=== PATIENT | male | born 1945 | race American Indian/Alaskan Native ===

== ENCOUNTER 2021-05-13 09:57 | Inpatient (IN) | payer MEDICARE ==
[2021-05-13] MEDS ORDERED: SODIUM CHLORIDE 0.9% 1000 ML 1,000 ML IV ONE ×2 (11:09→16:01)
[2021-05-13] MEDS ORDERED: ALBUTEROL 2.5 MG/3 ML NEBU IH ONE (11:10)
[2021-05-13] MEDS ORDERED: methylPREDNISolone Sod Succinate 125 MG/2 ML INJ IM ONE (11:10)
[2021-05-13] MEDS ORDERED: IPRATROPIUM 0.02% NEBU 2.5 ML IH ONE (11:10)
--- NOTE | 2021-05-13 11:14 | Emergency Department Report ---
HPI - General Chief Complaint: Back Pain/Injury Time Seen by Provider: 05/13/21 11:07 - HPI HPI: 76-year-old male with history of DM 2, COPD, right eye blindness, and colon cancer status post resection 1 year ago as well as chronic low back pain presents via EMS due to 3 days of generalized weakness and cough as well as an episode of hemoptysis this morning. Patient states that for the past 3 days he has felt ill with generalized weakness, body aches, shortness of breath, and subjective fever. He has been using his inhalers without significant relief. This morning he had an episode of coughing up blood and clots. This only happened one time. He is unable to quantify the amount. His last bowel movement was this morning he denies melena/hematochezia. He denies hematemisis. He does report he has low back pain but says that this has been ongoing and chronic for the past year and there are no new changes to this. Patient is not vaccinated against the coronavirus. ED Past Medical Hx - Past Medical History Previous Medical History?: Yes Hx Diabetes: Yes Hx COPD: Yes Additional medical history: Right eye blindness, Colon cancer s/p resection - Social History Smoking Status: Former Smoker Substance Use Type: None ED Review of Systems ROS: Stated complaint: WEAKNESS/RT FLANK PAIN Other details as noted in HPI Constitutional: fever, weakness, other (No night sweats). denies: chills Eyes: denies: eye pain, vision change ENT: denies: throat pain, congestion Respiratory: cough, shortness of breath, other (hemoptysis) Cardiovascular: denies: chest pain, palpitations, edema, syncope Gastrointestinal: denies: abdominal pain, nausea, vomiting, diarrhea, constipation, melena Genitourinary: denies: dysuria, frequency, hematuria Musculoskeletal: back pain (chronic). denies: joint swelling Skin: denies: rash, lesions Neurological: denies: headache, weakness, numbness, paresthesias, confusion Hematological/Lymphatic: denies: easy bleeding, easy bruising Physical Exam - Physical Exam Vital Signs: Vital Signs 05/13/21 10:26 Temperature 99.9 F H Pulse Rate 114 H Respiratory 18 Rate Blood Pressure 94/65 [Right] O2 Sat by Pulse 97 Oximetry Physical Exam: GENERAL: Well developed and well nourished. In moderate respiratory distress. Globally weak. HEAD: Normocephalic. No obvious signs of trauma. ENT: Very dry mucous membranes. EYES: Extraocular movements are grossly intact. NECK: Supple. Full ROM is intact. Trachea is midline. LUNGS: In moderate respiratory distress. Equal chest rise bilaterally. Globally decreased air movement throughout without discrete rales, wheezes, or rhonchi. CARDIOVASCULAR: Tachycardic but with regular rhythm. No murmurs or rubs. VASCULAR: Cap refill < 2 seconds ABDOMEN: Abdomen is distended but soft and nontender. Well-healed abdominal scars are noted. There is no guarding or rebound tenderness. SKIN: Skin is warm and dry NEURO: Patient is awake, alert, and oriented. 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 No focal deficits. Normal motor and sensory exam throughout. Normal speech. MUSCULOSKELETAL: No obvious deformities. No significant tenderness. Normal ROM throughout. BACK/SPINE: No midline tenderness or step-offs of the C/T/L spine. No costovertebral angle tenderness. ED Course Vital Signs 05/13/21 10:26 Temperature 99.9 F H Pulse Rate 114 H Respiratory 18 Rate Blood Pressure 94/65 [Right] O2 Sat by Pulse 97 Oximetry ED Medical Decision Making - Lab Data Result diagrams: 05/13/21 11:24 05/13/21 11:24 Lab Results 05/13/21 05/13/21 05/13/21 Range/Units 11:24 11:24 11:24 WBC 4.1 L (4.5-11.0) K/mm3 RBC 5.30 H (3.65-5.03) M/mm3 Hgb 15.4 H (11.8-15.2) gm/dl Hct 46.6 H (35.5-45.6) % MCV 88 (84-94) fl MCH 29 (28-32) pg MCHC 33 (32-34) % RDW 13.2 (13.2-15.2) % Plt Count 145 (140-440) K/mm3 Lymph % (Auto) 8.1 L (13.4-35.0) % [place] % (Auto) 10.4 H (0.0-7.3) % Eos % (Auto) 0.1 (0.0-4.3) % Baso % (Auto) 0.4 (0.0-1.8) % Lymph # (Auto) 0.3 L (1.2-5.4) K/mm3 [place] # (Auto) 0.4 (0.0-0.8) K/mm3 Eos # (Auto) 0.0 (0.0-0.4) K/mm3 Baso # (Auto) 0.0 (0.0-0.1) K/mm3 Seg Neutrophils % 81.0 H (40.0-70.0) % Seg Neutrophils # 3.3 (1.8-7.7) K/mm3 D-Dimer (0-234) ng/mlDDU Sodium 139 (137-145) mmol/L Potassium 3.8 (3.6-5.0) mmol/L Chloride 99.9 (98-107) mmol/L Carbon Dioxide 26 (22-30) mmol/L Anion Gap 17 mmol/L BUN 17 (9-20) mg/dL Creatinine 0.9 (0.8-1.3) mg/dL Estimated GFR > 60 ml/min BUN/Creatinine Ratio 19 % Glucose 121 H (75-100) mg/dL Lactic Acid 1.20 (0.7-2.0) mmol/L Calcium 8.7 (8.4-10.2) mg/dL Ferritin (30.0-300.0) ng/mL Total Bilirubin 0.40 (0.1-1.2) mg/dL AST 54 H (5-40) units/L ALT 51 (7-56) units/L Alkaline Phosphatase 66 (35-129) units/L Lactate Dehydrogenase (91-180) units/L Troponin T < 0.010 (0.00-0.029) ng/mL C-Reactive Protein (0.00-1.30) mg/dL Total Protein 7.9 (6.3-8.2) g/dL Albumin 4.2 (3.9-5) g/dL Albumin/Globulin Ratio 1.1 % Procalcitonin (<0.15) ng/mL Urine Color (Yellow) Urine Turbidity (Clear) Urine pH (5.0-7.0) Ur Specific [place] (1.003-1.030) Urine Protein (Negative) mg/dL Urine Glucose (UA) (Negative) mg/dL Urine Ketones (Negative) mg/dL Urine Blood (Negative) Urine Nitrite (Negative) Urine Bilirubin (Negative) Urine Urobilinogen (<2.0) mg/dL Ur Leukocyte Esterase (Negative) Urine WBC (Auto) (0.0-6.0) /HPF Urine RBC (Auto) (0.0-6.0) /HPF Urine Bacteria (Auto) (Negative) /HPF 05/13/21 05/13/21 05/13/21 Range/Units 11:24 11:24 11:24 WBC (4.5-11.0) K/mm3 RBC (3.65-5.03) M/mm3 Hgb (11.8-15.2) gm/dl Hct (35.5-45.6) % MCV (84-94) fl MCH (28-32) pg MCHC (32-34) % RDW (13.2-15.2) % Plt Count (140-440) K/mm3 Lymph % (Auto) (13.4-35.0) % [place] % (Auto) (0.0-7.3) % Eos % (Auto) (0.0-4.3) % Baso % (Auto) (0.0-1.8) % Lymph # (Auto) (1.2-5.4) K/mm3 [place] # (Auto) (0.0-0.8) K/mm3 Eos # (Auto) (0.0-0.4) K/mm3 Baso # (Auto) (0.0-0.1) K/mm3 Seg Neutrophils % (40.0-70.0) % Seg Neutrophils # (1.8-7.7) K/mm3 D-Dimer 314.43 H (0-234) ng/mlDDU Sodium (137-145) mmol/L Potassium (3.6-5.0) mmol/L Chloride (98-107) mmol/L Carbon Dioxide (22-30) mmol/L Anion Gap mmol/L BUN (9-20) mg/dL Creatinine (0.8-1.3) mg/dL Estimated GFR ml/min BUN/Creatinine Ratio % Glucose 125 H (75-100) mg/dL Lactic Acid (0.7-2.0) mmol/L Calcium (8.4-10.2) mg/dL Ferritin 262.6 (30.0-300.0) ng/mL Total Bilirubin (0.1-1.2) mg/dL AST (5-40) units/L ALT (7-56) units/L Alkaline Phosphatase (35-129) units/L Lactate Dehydrogenase 248 H (91-180) units/L Troponin T (0.00-0.029) ng/mL C-Reactive Protein 7.40 H (0.00-1.30) mg/dL Total Protein (6.3-8.2) g/dL Albumin (3.9-5) g/dL Albumin/Globulin Ratio % Procalcitonin (<0.15) ng/mL Urine Color (Yellow) Urine Turbidity (Clear) Urine pH (5.0-7.0) Ur Specific [place] (1.003-1.030) Urine Protein (Negative) mg/dL Urine Glucose (UA) (Negative) mg/dL Urine Ketones (Negative) mg/dL Urine Blood (Negative) Urine Nitrite (Negative) Urine Bilirubin (Negative) Urine Urobilinogen (<2.0) mg/dL Ur Leukocyte Esterase (Negative) Urine WBC (Auto) (0.0-6.0) /HPF Urine RBC (Auto) (0.0-6.0) /HPF Urine Bacteria (Auto) (Negative) /HPF 05/13/21 05/13/21 05/13/21 Range/Units 11:24 14:38 14:38 WBC (4.5-11.0) K/mm3 RBC (3.65-5.03) M/mm3 Hgb (11.8-15.2) gm/dl Hct (35.5-45.6) % MCV (84-94) fl MCH (28-32) pg MCHC (32-34) % RDW (13.2-15.2) % Plt Count (140-440) K/mm3 Lymph % (Auto) (13.4-35.0) % [place] % (Auto) (0.0-7.3) % Eos % (Auto) (0.0-4.3) % Baso % (Auto) (0.0-1.8) % Lymph # (Auto) (1.2-5.4) K/mm3 [place] # (Auto) (0.0-0.8) K/mm3 Eos # (Auto) (0.0-0.4) K/mm3 Baso # (Auto) (0.0-0.1) K/mm3 Seg Neutrophils % (40.0-70.0) % Seg Neutrophils # (1.8-7.7) K/mm3 D-Dimer (0-234) ng/mlDDU Sodium (137-145) mmol/L Potassium (3.6-5.0) mmol/L Chloride (98-107) mmol/L Carbon Dioxide (22-30) mmol/L Anion Gap mmol/L BUN (9-20) mg/dL Creatinine (0.8-1.3) mg/dL Estimated GFR ml/min BUN/Creatinine Ratio % Glucose (75-100) mg/dL Lactic Acid 3.10 H* (0.7-2.0) mmol/L Calcium (8.4-10.2) mg/dL Ferritin (30.0-300.0) ng/mL Total Bilirubin (0.1-1.2) mg/dL AST (5-40) units/L ALT (7-56) units/L Alkaline Phosphatase (35-129) units/L Lactate Dehydrogenase (91-180) units/L Troponin T < 0.010 (0.00-0.029) ng/mL C-Reactive Protein (0.00-1.30) mg/dL Total Protein (6.3-8.2) g/dL Albumin (3.9-5) g/dL Albumin/Globulin Ratio % Procalcitonin < 0.05 (<0.15) ng/mL Urine Color (Yellow) Urine Turbidity (Clear) Urine pH (5.0-7.0) Ur Specific [place] (1.003-1.030) Urine Protein (Negative) mg/dL Urine Glucose (UA) (Negative) mg/dL Urine Ketones (Negative) mg/dL Urine Blood (Negative) Urine Nitrite (Negative) Urine Bilirubin (Negative) Urine Urobilinogen (<2.0) mg/dL Ur Leukocyte Esterase (Negative) Urine WBC (Auto) (0.0-6.0) /HPF Urine RBC (Auto) (0.0-6.0) /HPF Urine Bacteria (Auto) (Negative) /HPF 05/13/21 05/13/21 Range/Units 15:45 Unknown WBC (4.5-11.0) K/mm3 RBC (3.65-5.03) M/mm3 Hgb (11.8-15.2) gm/dl Hct (35.5-45.6) % MCV (84-94) fl MCH (28-32) pg MCHC (32-34) % RDW (13.2-15.2) % Plt Count (140-440) K/mm3 Lymph % (Auto) (13.4-35.0) % [place] % (Auto) (0.0-7.3) % Eos % (Auto) (0.0-4.3) % Baso % (Auto) (0.0-1.8) % Lymph # (Auto) (1.2-5.4) K/mm3 [place] # (Auto) (0.0-0.8) K/mm3 Eos # (Auto) (0.0-0.4) K/mm3 Baso # (Auto) (0.0-0.1) K/mm3 Seg Neutrophils % (40.0-70.0) % Seg Neutrophils # (1.8-7.7) K/mm3 D-Dimer (0-234) ng/mlDDU Sodium (137-145) mmol/L Potassium (3.6-5.0) mmol/L Chloride (98-107) mmol/L Carbon Dioxide (22-30) mmol/L Anion Gap mmol/L BUN (9-20) mg/dL Creatinine (0.8-1.3) mg/dL Estimated GFR ml/min BUN/Creatinine Ratio % Glucose (75-100) mg/dL Lactic Acid 2.40 H* (0.7-2.0) mmol/L Calcium (8.4-10.2) mg/dL Ferritin (30.0-300.0) ng/mL Total Bilirubin (0.1-1.2) mg/dL AST (5-40) units/L ALT (7-56) units/L Alkaline Phosphatase (35-129) units/L Lactate Dehydrogenase (91-180) units/L Troponin T (0.00-0.029) ng/mL C-Reactive Protein (0.00-1.30) mg/dL Total Protein (6.3-8.2) g/dL Albumin (3.9-5) g/dL Albumin/Globulin Ratio % Procalcitonin (<0.15) ng/mL Urine Color Yellow (Yellow) Urine Turbidity Clear (Clear) Urine pH 9.0 H (5.0-7.0) Ur Specific [place] 1.012 (1.003-1.030) Urine Protein <15 mg/dl (Negative) mg/dL Urine Glucose (UA) Neg (Negative) mg/dL Urine Ketones Neg (Negative) mg/dL Urine Blood Neg (Negative) Urine Nitrite Neg (Negative) Urine Bilirubin Neg (Negative) Urine Urobilinogen < 2.0 (<2.0) mg/dL Ur Leukocyte Esterase Neg (Negative) Urine WBC (Auto) 1.0 (0.0-6.0) /HPF Urine RBC (Auto) < 1.0 (0.0-6.0) /HPF Urine Bacteria (Auto) 1+ (Negative) /HPF - EKG Data -: EKG Interpreted by Ms - EKG Data 05/13/21 11:47 Sinus tachycardia. Left axis deviation. Left anterior fascicular block. First-degree AV block. Nonspecific intraventricular conduction delay. Otherwise normal intervals. No significant ST segment or T wave abnormalities. - Radiology Data CHEST 1 VIEW INDICATION / CLINICAL INFORMATION: hemoptysis, tachycardia. COMPARISON: None available. FINDINGS: SUPPORT DEVICES: None. HEART / MEDIASTINUM: No significant abnormality. LUNGS / PLEURA: No significant pulmonary or pleural abnormality. No pneumothorax. ADDITIONAL FINDINGS: No significant additional findings. IMPRESSION: 1. No acute findings. Signer Name: Lyudmila Gaffney MD Signed: 05/13/2021 10:49 AM Workstation Name: [id number] CTA CHEST WITH IV CONTRAST INDICATION / CLINICAL INFORMATION: assess for PE vs dissection vs other OMNI 350 100 ML. TECHNIQUE: Axial CT images were obtained through the chest after injection of 100 mL IV contrast. 3 plane MIP and/or 3D reconstructions were produced. All CT scans at this location are performed using CT dose reduction for ALARA by means of automated exposure control. COMPARISON: Chest radiograph from today. FINDINGS: PULMONARY ARTERIES: No pulmonary emboli. THORACIC AORTA: No significant abnormality. Mild calcific plaque is present but no evidence of aneurysm or dissection. HEART: No significant abnormality. Trace pericardial effusion CORONARY ARTERIES: Some coronary artery calcification is present. PLEURA: No pleural effusion. No pneumothorax. LYMPH NODES: No significant adenopathy. LUNGS: There is focal linear parenchymal disease in the lingula with the appearance more suggestive of atelectasis. Pneumonia is not entirely excluded, however. Mild emphysematous changes present. ADDITIONAL FINDINGS: None. UPPER ABDOMEN: Small hiatal hernia. SKELETAL STRUCTURES: Mild spondylitic change but no acute osseous abnormality. IMPRESSION: 1. No CT [place] d[place] for pulmonary embolism. No evidence for thoracic aortic dissection. 2. Linear parenchymal disease is present within the lingula. It is unclear if this is acute or chronic. I would favor that this is atelectasis or chronic scarring. Unfortunately, there are no prior imaging studies for comparison. 3. Mild emphysematous change. Signer Name: Lyudmila Gaffney MD Signed: 05/13/2021 1:15 PM Workstation Name: [id number] CT abdomen pelvis w con INDICATION / CLINICAL INFORMATION: r/o intra-abdominal or pelvic abnormality/infection OMNI 300 100 ML. TECHNIQUE: Axial CT imaging of abdomen and pelvis was obtained with IV contrast. Coronal and sagittal reformatted imaging obtained and reviewed. All CT scans at this location are performed using CT dose reduction for ALARA by means of automated exposure control. COMPARISON: None available. FINDINGS: CT abdomen with contrast demonstrates normal appearance of the liver, spleen, pancreas, kidneys, and right adrenal gland. There is a low-density mass within the left adrenal gland measuring 2.8 cm most likely adrenal gland adenoma. Gallbladder is visualized. A small calcified gallstone is present within the gallbladder lumen. There is no evidence to suggest acute cholecystitis. No biliary dilatation noted. Small amount of calcified plaque is seen throughout the abdominal aorta. Moderate amount of calcified plaque is present throughout the common iliac arteries and external iliac arteries. No evidence of aneurysm or dissection. Small hiatal hernia. There is mild colonic wall thickening and inflammatory change throughout the transverse colon and extending to involve the majority of the descending colon, consistent with colitis. There is prominent diverticulitis involving the descending colon and proximal sigmoid colon without associated diverticulitis. A normal appendix is present in the right lower quadrant and appears unremarkable. Urinary bladder appears mildly thick-walled diffusely. Moderate amount of stool is present within the rectum. The remainder of the GI tract is grossly unremarkable. Review of osseous structures demonstrates multilevel degenerative disc disease and associated spondylitic change. IMPRESSION: 1. There is mild colitis affecting the transverse colon and descending colon. There is prominent diverticulosis involving the descending colon and proximal sigmoid colon. 2. Incidental finding of 2.8 cm left adrenal gland mass with appearance consistent with adrenal gland adenoma. 3. Cholelithiasis without suggestion for acute cholecystitis. Line 4. Diffuse mild urinary bladder wall thickening possibly related to bladder outlet obstruction. Signer Name: Lyudmila Gaffney MD Signed: 05/13/2021 1:26 PM Workstation Name: [id number] - Medical Decision Making 76-year-old male with history of DM 2, COPD, right eye blindness, and colon cancer status post resection 1 year ago as well as chronic low back pain presents via EMS due to worsening generalized weakness with cough and an episode of hemoptysis this morning. Patient reports coughing up a small amount of blood during single episode this morning but is unable to quantify the amount. He has had subjective fevers shortness of breath and has been using his COPD inhalers without significant relief. He did have a bowel movement today and denies any melena/hematochezia or hematemesis. He is not vaccinated against COVID-19. Initial assessment he is noted to be tachycardic with a heart rate of 114, he has a blood pressure of 100s/60s, he has a low-grade temperature of 99.9, and on room air while I was in the room the patient was noted to be hypoxic with an oxygen saturation of 89% which corrects to the low 90s on 1 L via nasal cannula. He is noted to have very dry mucous membranes. He is in mild respiratory distress and lung auscultation reveals globally decreased air movement throughout suggestive of severe COPD exacerbation. His abdomen is distended but soft and nontender. He is noted to have slightly increased right lower extremity edema compared to the left but there is minimal swelling overall. Although the patient reports chronic low back pain he has no midline tenderness and no CVA tenderness bilaterally. Given the patient's low-grade temperature, tachycardia, relative hypotension, and hypoxia, the sepsis order set was initiated with a full set of labs and cultures as well as chest x-ray. I have also initiated the COVID-19 order set as well. I have ordered 1 L of IV fluids for now as well as 125 mg of IV Solu-Medrol and continuous duo nebs. Given presence of hypoxia, tachycardia, and hemoptysis as well as history of malignancy, the patient is very high risk and I have ordered a CTA of the chest/abdomen/pelvis to assess for evidence of pulmonary embolism versus aortic dissection versus pneumonia versus other intra thoracic or intra abdominal abnormalities to explain the patient's symptoms, presentation, and hemoptysis. Initial chest x-ray shows no obvious signs of pneumonia. The patient's chest x-ray is negative. Labs have resulted and reveal leukopenia with white blood cell count of 4.1 and hemoglobin of 15.4. Kidney function is normal and there are no significant electrolyte abnormalities. D-dimer is elevated. At 1310 given unknown source and evidence of sepsis, I have ordered broad-spectrum IV Vanco and Zosyn. IVFs have been ordered as well On repeat assessment at 1330, the patient is no longer in respiratory distress. He reports feeling better than when he first arrived. On repeat assessment again at 1345, patient is resting comfortably in the bed. He just returned from the CT scanner. Lung auscultation reveals unchanged pulmonary examination with globally decreased air movement throughout. However, his respirations are much improved and he is in no acute distress at the moment. He remains tachycardic in the 100s to 110s. CTA of the chest/abdomen/pelvis reveals no evidence of pulmonary embolism but there is linear parenchymal disease which could represent pneumonia as well as findings of colitis of the transverse and descending colon. Patient has already received broad-spectrum antibiotics. At 1550, his oxygen saturation has remained stable on supplemental oxygen. His tachycardia has resolved. I discussed with him the results of the diagnostic studies and the need for admission for further management. The patient expressed understanding and agreement with the plan of care. At [address] Helm, the on-call hospitalist regarding the case and he accepts the patient for admission and will assume care. Critical Care Time: Yes Critical care time in (mins) excluding proc time.: 50 Critical care attestation.: If time is entered above; I have spent that time in minutes in the direct care of this critically ill patient, excluding procedure time. Critical care time was spent in the evaluation, assessment, work-up, and manage ment of critical COPD exacerbation requiring supplemental oxygen and breathing treatments as well as IV steroids, sepsis requiring broad-spectrum IV antibiotics, and frequent reevaluation and assessment. ED Disposition Clinical Impression: COPD exacerbation, Suspected COVID-19 virus infection, Pneumonia, Hypoxia, Sepsis, Leukopenia, Colitis Disposition: OP ADMIT IP TO THIS HOSP Is pt being admited?: Yes Condition: Fair Instructions: Chronic Obstructive Pulmonary Disease (ED), Bacterial Pneumonia (ED) Referrals: PRIMARY CARE,MD [Primary Care Provider] - 3-5 Days
--- NOTE | 2021-05-13 11:54 | XRay Report ---
CHEST 1 VIEW INDICATION / CLINICAL INFORMATION: hemoptysis, tachycardia. COMPARISON: None available. FINDINGS: SUPPORT DEVICES: None. HEART / MEDIASTINUM: No significant abnormality. LUNGS / PLEURA: No significant pulmonary or pleural abnormality. No pneumothorax. ADDITIONAL FINDINGS: No significant additional findings. IMPRESSION: 1. No acute findings. Signer Name: Lyudmila Gaffney MD Signed: 05/13/2021 11:49 AM Workstation Name: [id number]
[2021-05-13 12:20] LABS: Bacteria,Urine 1+ /HPF (Negative); Bilirubin,Urine NEG (Negative); Blood,Urine NEG (Negative); Color,Urine Yellow (Yellow); Protein,Urine <15 mg/dL mg/dL (Negative); Urobilinogen,Urine < 2.0 mg/dL (<2.0)
[2021-05-13 12:23] LABS: Basophils % (Auto) 0.4 % (0.0-1.8); Eosinophils % (Auto) 0.1 % (0.0-4.3); Hematocrit 46.6 % (35.5-45.6); Hemoglobin 15.4 gm/dl (11.8-15.2); Lymphocytes # (Auto) 0.3 K/mm3 (1.2-5.4); Lymphocytes % (Auto) 8.1 % (13.4-35.0); Mean Corpuscular HGB Conc 33 % (32-34); Mean Corpuscular Volume 88 fl (84-94); Monocytes # (Auto) 0.4 K/mm3 (0.0-0.8); Monocytes % (Auto) 10.4 % (0.0-7.3); Platelet Count 145 K/mm3 (140-440); Red Cell Distribution Width 13.2 % (13.2-15.2)
[2021-05-13 12:25] LABS: RBC,Urine < 1.0 /HPF (0.0-6.0)
[2021-05-13 12:34] LABS: Alanine Aminotransferase 51 units/L (7-56); Albumin 4.2 g/dL (3.9-5); BUN/Creatinine Ratio 19; Blood Urea Nitrogen 17 mg/dL (9-20); C-Reactive Protein 7.4 mg/dL (0.00-1.30); Calcium 8.7 mg/dL (8.4-10.2); Hemolysis Index 3
[2021-05-13] MEDS ORDERED: VANCOMYCIN 1,250 MG in SODIUM CHLORIDE 0.9% 500 ML 500 ML IV ONE (13:09)
[2021-05-13] MEDS ORDERED: PIPERACIL/TAZOBACTA 4.5/NS 100 4.5 GM/100 ML VIAL IV ONE (13:09)
[2021-05-13] MEDS ORDERED: VANCOMYCIN 1,500 MG in SODIUM CHLORIDE 0.9% 500 ML 500 ML IV ONE (14:00)
--- NOTE | 2021-05-13 14:19 | Cat Scan Report ---
CTA CHEST WITH IV CONTRAST INDICATION / CLINICAL INFORMATION: assess for PE vs dissection vs other OMNI 350 100 ML. TECHNIQUE: Axial CT images were obtained through the chest after injection of 100 mL IV contrast. 3 plane MIP an d/or 3D reconstructions were produced. All CT scans at this location are performed using CT dose redu ction for [facility] by means of automated exposure control. COMPARISON: Chest radiograph from today. FINDINGS: PULMONARY ARTERIES: No pulmonary emboli. THORACIC AORTA: No significant abnormality. Mild calcific plaque is present but no evidence of aneury sm or dissection. HEART: No significant abnormality. Trace pericardial effusion CORONARY ARTERIES: Some coronary artery calcification is present. PLEURA: No pleural effusion. No pneumothorax. LYMPH NODES: No significant adenopathy. LUNGS: There is focal linear parenchymal disease in the lingula with the appearance more suggestive o f atelectasis. Pneumonia is not entirely excluded, however. Mild emphysematous changes present. ADDITIONAL FINDINGS: None. UPPER ABDOMEN: Small hiatal hernia. SKELETAL STRUCTURES: Mild spondylitic change but no acute osseous abnormality. IMPRESSION: 1. No CT evidence for pulmonary embolism. No evidence for thoracic aortic dissection. 2. Linear parenchymal disease is present within the lingula. It is unclear if this is acute or chroni c. I would favor that this is atelectasis or chronic scarring. Unfortunately, there are no prior imag ing studies for comparison. 3. Mild emphysematous change. Signer Name: Lyudmila Gaffney MD Signed: 05/13/2021 2:15 PM Workstation Name: [id number]
--- NOTE | 2021-05-13 14:31 | Cat Scan Report ---
CT abdomen pelvis w con INDICATION / CLINICAL INFORMATION: r/o intra-abdominal or pelvic abnormality/infection OMNI 300 100 ML. TECHNIQUE: Axial CT imaging of abdomen and pelvis was obtained with IV contrast. Coronal and sagittal reformatte d imaging obtained and reviewed. All CT scans at this location are performed using CT dose reduction for ALARA by means of automated exposure control. COMPARISON: None available. FINDINGS: CT abdomen with contrast demonstrates normal appearance of the liver, spleen, pancreas, kidneys, and right adrenal gland. There is a low-density mass within the left adrenal gland measuring 2.8 cm most likely adrenal gland adenoma. Gallbladder is visualized. A small calcified gallstone is present withi n the gallbladder lumen. There is no evidence to suggest acute cholecystitis. No biliary dilatation n oted. Small amount of calcified plaque is seen throughout the abdominal aorta. Moderate amount of lizandro cified plaque is present throughout the common iliac arteries and external iliac arteries. No evidenc e of aneurysm or dissection. Small hiatal hernia. There is mild colonic wall thickening and inflammatory change throughout the transverse colon and ext ending to involve the majority of the descending colon, consistent with colitis. There is prominent d iverticulitis involving the descending colon and proximal sigmoid colon without associated diverticul itis. A normal appendix is present in the right lower quadrant and appears unremarkable. Urinary blad jen appears mildly thick-walled diffusely. Moderate amount of stool is present within the rectum. The remainder of the GI tract is grossly unrem arkable. Review of osseous structures demonstrates multilevel degenerative disc disease and associated spondyl itic change. IMPRESSION: 1. There is mild colitis affecting the transverse colon and descending colon. There is prominent dive rticulosis involving the descending colon and proximal sigmoid colon. 2. Incidental finding of 2.8 cm left adrenal gland mass with appearance consistent with adrenal gland adenoma. 3. Cholelithiasis without suggestion for acute cholecystitis. Line 4. Diffuse mild urinary bladder wall thickening possibly related to bladder outlet obstruction. Signer Name: Lyudmila Gaffney MD Signed: 05/13/2021 2:26 PM Workstation Name: [id number]
--- NOTE | 2021-05-13 23:06 | History and Physical Report ---
History of Present Illness Date of examination: 05/13/21 Date of admission: 05/13/21 22:02 Chief complaint: Cough improved with previous History of present illness: 76-year-old male with history of diabetes, COPD, right eye blindness and s/p colon cancer resection 1 year ago, chronic back pain comes where EMS for cough and fever of 2 to 3 days. Patient also has generalized weakness. Patient had one episode of coughing up blood this morning but is not sure. It was only one episode and was not followed by any wheezing syncope etc. Patient has been using inhalers without significant relief. No hematemesis or melena. No weight loss. Patient is unvaccinated. In the emergency room patient dialysis low-grade fever of 99.9. And patient is also tachycardic with heart rate of 114/min. - Past Medical History Previous Medical History?: Yes --Diabetes: Yes --COPD: Yes Additional medical history: Right eye blindness, -Surgical history Colon cancer s/p resection - Social History Smoking Status: Former Smoker Substance Use Type: None Family history Htn Review of Systems ROS: Stated complaint: WEAKNESS/RT FLANK PAIN Other details as noted in HPI Constitutional: fever, weakness, other (No night sweats). denies: chills Eyes: denies: eye pain, vision change ENT: denies: throat pain, congestion Respiratory: cough, shortness of breath, other (hemoptysis) Cardiovascular: denies: chest pain, palpitations, edema, syncope Gastrointestinal: denies: abdominal pain, nausea, vomiting, diarrhea, constipation, melena Genitourinary: denies: dysuria, frequency, hematuria Musculoskeletal: back pain (chronic). denies: joint swelling Skin: denies: rash, lesions Neurological: denies: headache, weakness, numbness, paresthesias, confusion Hematological/Lymphatic: denies: easy bleeding, easy bruising Medications and Allergies Allergies Allergy/AdvReac Type Severity Reaction Status Date / Time No Known Allergies Allergy Unverified 05/13/21 10:26 Exam - Constitutional Vitals: Temp Pulse Resp BP Pulse Ox 99.9 F H 87 16 111/76 95 05/13/21 10:26 05/13/21 20:00 05/13/21 20:00 05/13/21 20:00 05/13/21 20:00 General appearance: Present: mild distress, well-nourished - EENT Eyes: Present: PERRL ENT: hearing intact, clear oral mucosa - Neck Neck: Present: supple, normal ROM - Respiratory Respiratory effort: normal Respiratory: bilateral: CTA, rhonchi - Cardiovascular Heart rate: 78 Rhythm: regular Heart Sounds: Present: S1 & S2. Absent: rub, click - Extremities Extremities: pulses symmetrical, No edema Peripheral Pulses: within normal limits - Abdominal General gastrointestinal: Present: soft, non-tender, non-distended, normal bowel sounds Male genitourinary: Present: normal - Rectal Rectal Exam: stool brown - Integumentary Integumentary: Present: clear, warm, dry - Musculoskeletal Musculoskeletal: gait normal, strength equal bilaterally - Psychiatric Psychiatric: appropriate mood/affect, intact judgment & insight - Neurologic Neurologic: CNII-XII intact, moves all extremities HEART Score - HEART Score History: Slightly suspicious EKG: Normal Age: > 65 Risk factors: 1-2 risk factors Troponin: Troponin T < 0.010 ng/mL (0.00-0.029) 05/13/21 14:38 Troponin: < normal limit HEART Score: 3 - Critical Actions Critical Actions: 0-3 pts:0.9-1.7%risk of adverse cardiac event.Candidate for discharge Results - Labs CBC & Chem 7: 05/13/21 11:24 05/13/21 11:24 Labs: Laboratory Last Values WBC 4.1 K/mm3 (4.5-11.0) L 05/13/21 11:24 RBC 5.30 M/mm3 (3.65-5.03) H 05/13/21 11:24 Hgb 15.4 gm/dl (11.8-15.2) H 05/13/21 11:24 Hct 46.6 % (35.5-45.6) H 05/13/21 11:24 MCV 88 fl (84-94) 05/13/21 11:24 MCH 29 pg (28-32) 05/13/21 11:24 MCHC 33 % (32-34) 05/13/21 11:24 RDW 13.2 % (13.2-15.2) 05/13/21 11:24 Plt Count 145 K/mm3 (140-440) 05/13/21 11:24 Lymph % (Auto) 8.1 % (13.4-35.0) L 05/13/21 11:24 [place] % (Auto) 10.4 % (0.0-7.3) H 05/13/21 11:24 Eos % (Auto) 0.1 % (0.0-4.3) 05/13/21 11:24 Baso % (Auto) 0.4 % (0.0-1.8) 05/13/21 11:24 Lymph # (Auto) 0.3 K/mm3 (1.2-5.4) L 05/13/21 11:24 [place] # (Auto) 0.4 K/mm3 (0.0-0.8) 05/13/21 11:24 Eos # (Auto) 0.0 K/mm3 (0.0-0.4) 05/13/21 11:24 Baso # (Auto) 0.0 K/mm3 (0.0-0.1) 05/13/21 11:24 Seg Neutrophils % 81.0 % (40.0-70.0) H 05/13/21 11:24 Seg Neutrophils # 3.3 K/mm3 (1.8-7.7) 05/13/21 11:24 D-Dimer 314.43 ng/mlDDU (0-234) H 05/13/21 11:24 Sodium 139 mmol/L (137-145) 05/13/21 11:24 Potassium 3.8 mmol/L (3.6-5.0) 05/13/21 11:24 Chloride 99.9 mmol/L (98-107) 05/13/21 11:24 Carbon Dioxide 26 mmol/L (22-30) 05/13/21 11:24 Anion Gap 17 mmol/L 05/13/21 11:24 BUN 17 mg/dL (9-20) 05/13/21 11:24 Creatinine 0.9 mg/dL (0.8-1.3) 05/13/21 11:24 Estimated GFR > 60 ml/min 05/13/21 11:24 BUN/Creatinine Ratio 19 % 05/13/21 11:24 Glucose 121 mg/dL (75-100) H 05/13/21 11:24 Glucose 125 mg/dL (75-100) H 05/13/21 11:24 Lactic Acid 2.40 mmol/L (0.7-2.0) H* 05/13/21 15:45 Calcium 8.7 mg/dL (8.4-10.2) 05/13/21 11:24 Ferritin 262.6 ng/mL (30.0-300.0) 05/13/21 11:24 Total Bilirubin 0.40 mg/dL (0.1-1.2) 05/13/21 11:24 AST 54 units/L (5-40) H 05/13/21 11:24 ALT 51 units/L (7-56) 05/13/21 11:24 Alkaline Phosphatase 66 units/L (35-129) 05/13/21 11:24 Lactate Dehydrogenase 248 units/L (91-180) H 05/13/21 11:24 Troponin T < 0.010 ng/mL (0.00-0.029) 05/13/21 14:38 C-Reactive Protein 7.40 mg/dL (0.00-1.30) H 05/13/21 11:24 Total Protein 7.9 g/dL (6.3-8.2) 05/13/21 11:24 Albumin 4.2 g/dL (3.9-5) 05/13/21 11:24 Albumin/Globulin Ratio 1.1 % 05/13/21 11:24 Procalcitonin < 0.05 ng/mL (<0.15) 05/13/21 11:24 Urine Color Yellow (Yellow) 05/13/21 Unknown Urine Turbidity Clear (Clear) 05/13/21 Unknown Urine pH 9.0 (5.0-7.0) H 05/13/21 Unknown Ur Specific [place] 1.012 (1.003-1.030) 05/13/21 Unknown Urine Protein <15 mg/dl mg/dL (Negative) 05/13/21 Unknown Urine Glucose (UA) Neg mg/dL (Negative) 05/13/21 Unknown Urine Ketones Neg mg/dL (Negative) 05/13/21 Unknown Urine Blood Neg (Negative) 05/13/21 Unknown Urine Nitrite Neg (Negative) 05/13/21 Unknown Urine Bilirubin Neg (Negative) 05/13/21 Unknown Urine Urobilinogen < 2.0 mg/dL (<2.0) 05/13/21 Unknown Ur Leukocyte Esterase Neg (Negative) 05/13/21 Unknown Urine WBC (Auto) 1.0 /HPF (0.0-6.0) 05/13/21 Unknown Urine RBC (Auto) < 1.0 /HPF (0.0-6.0) 05/13/21 Unknown Urine Bacteria (Auto) 1+ /HPF (Negative) 05/13/21 Unknown Microbiology: Microbiology 05/13/21 11:24 Peripheral/Venous Blood Culture - Preliminary Culture in Progress 05/13/21 11:24 Peripheral/Venous Blood Culture - Preliminary Culture in Progress - Imaging and Cardiology Chest x-ray: report reviewed CT scan - abdomen: report reviewed CT scan - chest: report reviewed Imaging and Cardiology: CT abdomen and pelvis There is mild colitis affecting the transverse colon and descending colon. Th ere is prominent diverticulosis involving the descending colon and proximal sigmoid colon. Incidental finding of 2.8 cm left adrenal gland mass with appearance consistent with adrenal gland adenoma. Chest CTA neck No CT evidence for pulmonary embolism no evidence for thoracic or aortic dissection Linear parenchymal disease is present within the lingula It is unclear if this is acute or chronic I would favor that this is atelectasis or chronic scarring unfortunately there are no prior imaging studies for comparison Mild emphysematous change Chest x-ray No acute findings Assessment and Plan Advance Directives: Yes (Full code) VTE prophylaxis?: Chemical Plan of care discussed with patient/family: Yes - Patient Problems (1) SIRS (systemic inflammatory response syndrome) Current Visit: Yes Status: Acute Plan to address problem: Patient has tachycardia elevated lactic acid level and temperature of 99.9 IV fluids for 12 hours (2) Viral syndrome Current Visit: Yes Status: Acute Plan to address problem: Patient to be tested for coronavirus Tylenol 650 mg every 4 constitutional no weight loss or weight gain no fever or chills IV Zithromax and IV Rocephin initiated for doubtful developing pneumonia (3) Hemoptysis Current Visit: Yes Status: Acute Plan to address problem: Not clear whether the history is accurate No cavity or mass on CT of the chest Pulmonary consult requested Bronchoscopy if hemoptysis persists (4) Suspected COVID-19 virus infection Current Visit: Yes Status: Acute Plan to address problem: Coronavirus PCR requested Decadron initiated IV Zithromax and Rocephin initiated (5) Polycythemia due to fall in plasma volume Current Visit: Yes Status: Acute Plan to address problem: IV fluids for 12 hours (6) COPD exacerbation Current Visit: Yes Status: Acute Plan to address problem: Duo nebs and IV Decadron (7) T2DM (type 2 diabetes mellitus) Current Visit: Yes Status: Chronic Qualifiers: Diabetes mellitus 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
[2021-05-13] MEDS ORDERED: METOCLOPRAMIDE 10 MG/2 ML INJ IV PRN (23:07)
[2021-05-13] MEDS ORDERED: HYDROmorphone 1 MG/1 ML INJ IV PRN (23:07)
[2021-05-13] MEDS ORDERED: oxyCODONE /ACETAMINOPHEN 5-325MG TAB PO PRN (23:07)
[2021-05-13] MEDS ORDERED: ONDANSETRON 4 MG/2 ML INJ IV PRN (23:07)
[2021-05-13] MEDS ORDERED: ACETAMINOPHEN 325 MG TAB PO PRN (23:07)
[2021-05-13] MEDS ORDERED: IPRATROPIUM/ALBUTEROL SULFATE 3 ML AMPUL.NEB IH PRN (23:33)
[2021-05-13] MEDS ORDERED: ALBUTEROL 2.5 MG/3 ML NEBU IH PRN (23:39)
[2021-05-14] MEDS: ZINC SULFATE 220 MG CAP PO SCH ×3 (01:53→22:50)
[2021-05-14] MEDS: AZITHROMYCIN/NS 500 MG/250 ML 500 MG/250 ML BAG IV SCH ×2 (01:53→22:50)
[2021-05-14] MEDS: ASCORBIC ACID 500 MG TAB PO SCH ×3 (03:37→22:50)
[2021-05-14] MEDS: cefTRIAXone/NS 2 GM/100 ML 2 GM/100 ML BAG IV SCH (03:37)
[2021-05-14] MEDS: dexAMETHasone 4 MG/ML VIAL IV SCH ×2 (03:37→22:50)
[2021-05-14] MEDS ORDERED: SODIUM CHLORIDE 0.9% 1000 ML 1,000 ML IV SCH (06:00)
[2021-05-14 06:20] LABS: Basophils % (Auto) 0.1 % (0.0-1.8); Hematocrit 42.1 % (35.5-45.6); Hemoglobin 13.9 gm/dl (11.8-15.2); Lymphocytes # (Auto) 0.3 K/mm3 (1.2-5.4); Lymphocytes % (Auto) 7.8 % (13.4-35.0); Mean Corpuscular HGB Conc 33 % (32-34); Mean Corpuscular Volume 88 fl (84-94); Monocytes # (Auto) 0.2 K/mm3 (0.0-0.8); Platelet Count 138 K/mm3 (140-440); Red Blood Count 4.78 M/mm3 (3.65-5.03); Red Cell Distribution Width 13.4 % (13.2-15.2)
[2021-05-14 06:38] LABS: Alanine Aminotransferase 53 units/L (7-56); Albumin 3.9 g/dL (3.9-5); Blood Urea Nitrogen 19 mg/dL (9-20); Calcium 8.4 mg/dL (8.4-10.2); Hemolysis Index 22
[2021-05-14 07:00] LABS: BUN/Creatinine Ratio 38
[2021-05-14] MEDS ORDERED: IPRATROPIUM/ALBUTEROL SULFATE 3 ML AMPUL.NEB IH SCH (08:00)
[2021-05-14] MEDS: ENOXAPARIN 40 MG/0.4 ML INJ SUB-Q SCH (10:56)
[2021-05-14] MEDS: FAMOTIDINE 20 MG TAB PO SCH ×2 (10:56→22:50)
[2021-05-14] MEDS: CHOLECALCIFEROL (VIT D3) 5,000 UNIT TAB PO SCH (10:57)
[2021-05-14] MEDS ORDERED: ALBUTEROL 2.5 MG/3 ML NEBU IH PRN (10:58)
--- NOTE | 2021-05-14 11:19 | Progress Note ---
Assessment and Plan Assessment and plan: 76-year-old male with history of diabetes, COPD, right eye blindness and s/p colon cancer resection 1 year ago, chronic back pain comes where EMS for cough and fever of 2 to 3 days. Patient also has generalized weakness. Patient had one episode of coughing up blood this morning but is not sure. It was only one episode and was not followed by any wheezing syncope etc. Patient has been using inhalers without significant relief. No hematemesis or melena. No weight loss. Patient is unvaccinated. In the emergency room patient dialysis low-grade fever of 99.9. And patient had tachycardic with heart rate of 114/min. (1) SIRS (systemic inflammatory response syndrome) Current Visit: Yes Status: Acute Plan to address problem: Patient has tachycardia elevated lactic acid level and temperature of 99.9 IV fluids for 12 hours (2) Viral syndrome Current Visit: Yes Status: Acute Plan to address problem: Patient to be tested for coronavirus Tylenol 650 mg every 4 constitutional no weight loss or weight gain no fever or chills IV Zithromax and IV Rocephin initiated for doubtful developing pneumonia (3) Hemoptysis Current Visit: Yes Status: Acute Plan to address problem: Not clear whether the history is accurate No cavity or mass on CT of the chest Pulmonary consult requested Bronchoscopy if hemoptysis persists (4) Suspected COVID-19 virus infection Current Visit: Yes Status: Acute Plan to address problem: Coronavirus PCR requested Decadron initiated IV Zithromax and Rocephin initiated (5) Polycythemia due to fall in plasma volume Current Visit: Yes Status: Acute Plan to address problem: IV fluids for 12 hours (6) COPD exacerbation Current Visit: Yes Status: Acute Plan to address problem: Duo nebs and IV Decadron (7) T2DM (type 2 diabetes mellitus) Current Visit: Yes Status: Chronic Qualifiers: 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 CXR unremarkable. CT Abd shows colitis. Will consult GI. Pulm consulted. History Interval history: Fever and cough One episode of coughing up blood Gen weakness Hospitalist Physical - Physical exam Narrative exam: Gen: Not in acute distress, lying in bed HEENT: Normocephalic, atraumatic Neck : supple, no JVD Heart:S1 and S2 reg, no murmurs, rubs or gallop Lungs: clear to auscultation bilaterally, no wheeze Abd: Soft , non tender, non distended, normal bowel sounds Ext: No edema, no clubbing, no cyanosis Neuro: Awake, alert, oriented, moves all ext, blind right eye - Constitutional Vitals: Temp Pulse Resp BP Pulse Ox 99.9 F H 77 16 113/70 98 05/13/21 10:26 05/14/21 10:48 05/14/21 10:48 05/14/21 07:44 05/14/21 10:56 HEART Score - HEART Score EKG: Normal Age: > 65 Risk factors: 1-2 risk factors Troponin: Troponin T < 0.010 ng/mL (0.00-0.029) 05/13/21 14:38 Troponin: < normal limit - Critical Actions Critical Actions: 0-3 pts:0.9-1.7%risk of adverse cardiac event.Candidate for discharge Results - Labs CBC & Chem 7: 05/14/21 05:45 05/14/21 05:45 Labs: Laboratory Last Values WBC 3.3 K/mm3 (4.5-11.0) L 05/14/21 05:45 RBC 4.78 M/mm3 (3.65-5.03) 05/14/21 05:45 Hgb 13.9 gm/dl (11.8-15.2) 05/14/21 05:45 Hct 42.1 % (35.5-45.6) 05/14/21 05:45 MCV 88 fl (84-94) 05/14/21 05:45 MCH 29 pg (28-32) 05/14/21 05:45 MCHC 33 % (32-34) 05/14/21 05:45 RDW 13.4 % (13.2-15.2) 05/14/21 05:45 Plt Count 138 K/mm3 (140-440) L 05/14/21 05:45 Lymph % (Auto) 7.8 % (13.4-35.0) L 05/14/21 05:45 [place] % (Auto) 6.0 % (0.0-7.3) 05/14/21 05:45 Eos % (Auto) 0.0 % (0.0-4.3) 05/14/21 05:45 Baso % (Auto) 0.1 % (0.0-1.8) 05/14/21 05:45 Lymph # (Auto) 0.3 K/mm3 (1.2-5.4) L 05/14/21 05:45 [place] # (Auto) 0.2 K/mm3 (0.0-0.8) 05/14/21 05:45 Eos # (Auto) 0.0 K/mm3 (0.0-0.4) 05/14/21 05:45 Baso # (Auto) 0.0 K/mm3 (0.0-0.1) 05/14/21 05:45 Seg Neutrophils % 86.1 % (40.0-70.0) H 05/14/21 05:45 Seg Neutrophils # 2.8 K/mm3 (1.8-7.7) 05/14/21 05:45 D-Dimer 314.43 ng/mlDDU (0-234) H 05/13/21 11:24 Sodium 142 mmol/L (137-145) 05/14/21 05:45 Potassium 4.6 mmol/L (3.6-5.0) D 05/14/21 05:45 Chloride 104.6 mmol/L (98-107) 05/14/21 05:45 Carbon Dioxide 21 mmol/L (22-30) L 05/14/21 05:45 Anion Gap 21 mmol/L 05/14/21 05:45 BUN 19 mg/dL (9-20) 05/14/21 05:45 Creatinine 0.5 mg/dL (0.8-1.3) L 05/14/21 05:45 Estimated GFR > 60 ml/min 05/14/21 05:45 BUN/Creatinine Ratio 38 % 05/14/21 05:45 Glucose 113 mg/dL (75-100) H 05/14/21 05:45 POC Glucose 141 mg/dL (70-105) H 05/14/21 11:15 Hemoglobin A1c 9.8 % (4-6) H 05/14/21 05:45 Lactic Acid 2.40 mmol/L (0.7-2.0) H* 05/13/21 15:45 Calcium 8.4 mg/dL (8.4-10.2) 05/14/21 05:45 Ferritin 262.6 ng/mL (30.0-300.0) 05/13/21 11:24 Total Bilirubin 0.40 mg/dL (0.1-1.2) 05/14/21 05:45 AST 84 units/L (5-40) H 05/14/21 05:45 ALT 53 units/L (7-56) 05/14/21 05:45 Alkaline Phosphatase 55 units/L (35-129) 05/14/21 05:45 Lactate Dehydrogenase 248 units/L (91-180) H 05/13/21 11:24 Troponin T < 0.010 ng/mL (0.00-0.029) 05/13/21 14:38 C-Reactive Protein 7.40 mg/dL (0.00-1.30) H 05/13/21 11:24 Total Protein 6.2 g/dL (6.3-8.2) L D 05/14/21 05:45 Albumin 3.9 g/dL (3.9-5) 05/14/21 05:45 Albumin/Globulin Ratio 1.7 % 05/14/21 05:45 Procalcitonin < 0.05 ng/mL (<0.15) 05/13/21 11:24 Urine Color Yellow (Yellow) 05/13/21 Unknown Urine Turbidity Clear (Clear) 05/13/21 Unknown Urine pH 9.0 (5.0-7.0) H 05/13/21 Unknown Ur Specific [place] 1.012 (1.003-1.030) 05/13/21 Unknown Urine Protein <15 mg/dl mg/dL (Negative) 05/13/21 Unknown Urine Glucose (UA) Neg mg/dL (Negative) 05/13/21 Unknown Urine Ketones Neg mg/dL (Negative) 05/13/21 Unknown Urine Blood Neg (Negative) 05/13/21 Unknown Urine Nitrite Neg (Negative) 05/13/21 Unknown Urine Bilirubin Neg (Negative) 05/13/21 Unknown Urine Urobilinogen < 2.0 mg/dL (<2.0) 05/13/21 Unknown Ur Leukocyte Esterase Neg (Negative) 05/13/21 Unknown Urine WBC (Auto) 1.0 /HPF (0.0-6.0) 05/13/21 Unknown Urine RBC (Auto) < 1.0 /HPF (0.0-6.0) 05/13/21 Unknown Urine Bacteria (Auto) 1+ /HPF (Negative) 05/13/21 Unknown Microbiology: Microbiology 05/13/21 11:24 Peripheral/Venous Blood Culture - Preliminary Culture in Progress 05/13/21 11:24 Peripheral/Venous Blood Culture - Preliminary Culture in Progress Active Medications - Current Medications Current Medications: Generic Name Dose Route Start Last Admin Trade Name Freq PRN Reason Stop Dose Admin Acetaminophen 650 mg 05/13/21 23:07 Acetaminophen 325 Mg Tab PO Q4H PRN Pain MILD(1-3)/Fever >100.5/MARTINEZ Albuterol 2.5 mg 05/14/21 10:58 Albuterol 2.5 Mg/3 Ml Nebu IH Q4H PRN Wheezing Ascorbic Acid 1,000 mg 05/13/21 23:45 05/14/21 10:56 Ascorbic Acid 500 Mg Tab PO 1,000 mg BID SARIAH Administration Cholecalciferol 5,000 unit 05/14/21 10:00 05/14/21 10:57 Cholecalciferol (Vit D3) 5,000 Unit Tab PO 5,000 unit DAILY SARIAH Administration Dexamethasone 8 mg 05/13/21 23:45 05/14/21 03:37 Dexamethasone 4 Mg/Ml Vial IV 8 mg Q24H SARIAH Administration Enoxaparin Sodium 40 mg 05/14/21 10:00 05/14/21 10:56 Enoxaparin 40 Mg/0.4 Ml Inj SUB-Q 40 mg QDAY SARIAH Administration Famotidine 20 mg 05/14/21 10:00 05/14/21 10:56 Famotidine 20 Mg Tab PO 20 mg BID SARIAH Administration Hydromorphone HCl 0.5 mg 05/13/21 23:07 Hydromorphone 1 Mg/1 Ml Inj IV Q3H PRN Pain , Severe (7-10) Azithromycin 500 mg in 250 mls @ 250 mls/hr 05/13/21 23:45 05/14/21 01:53 Zithromax/Ns IV 250 mls/hr Q24H SARIAH Administration Ceftriaxone Sodium 2 gm in 100 mls @ 200 mls/hr 05/13/21 23:45 05/14/21 03:37 Rocephin/Ns 2 Gm/100 Ml IV 200 mls/hr Q24H SARIAH Administration Protocol Sodium Chloride 1,000 mls @ 75 mls/hr 05/14/21 06:00 Nacl 0.9% 1000 Ml IV 05/14/21 18:00 DIRECT SARIAH Metoclopramide HCl 10 mg 05/13/21 23:07 Metoclopramide 10 Mg/2 Ml Inj IV Q6H PRN Nausea And Vomiting Ondansetron HCl 4 mg 05/13/21 23:07 Ondansetron 4 Mg/2 Ml Inj IV Q8H PRN Nausea And Vomiting Oxycodone/Acetaminophen 1 tab 05/13/21 23:07 Oxycodone /Acetaminophen 5-325mg Tab PO Q6H PRN Pain, Moderate (4-6) Sodium Chloride 10 ml 05/14/21 10:00 05/14/21 10:54 Sodium Chloride 0.9% 10 Ml Flush Syringe IV 10 ml BID SARIAH Administration Sodium Chloride 10 ml 05/13/21 23:07 Sodium Chloride 0.9% 10 Ml Flush Syringe IV PRN PRN LINE FLUSH Zinc Sulfate 220 mg 05/13/21 23:45 05/14/21 10:54 Zinc Sulfate 220 Mg Cap PO 220 mg BID SARIAH Administration
--- NOTE | 2021-05-14 13:20 | Consultation ---
History of Present Illness Consult date: 05/14/21 Requesting physician: MARY RAY Reason for consult: COPD, hypoxemia, other (hemoptysis) History of present illness: 76-year-old male with history of DM 2, COPD, right eye blindness, and colon cancer status post resection 1 year ago as well as chronic low back pain presents via EMS due to 3 days of generalized weakness and cough as well as an episode of hemoptysis this morning. Patient states that for the past 3 days he has felt ill with generalized weakness, body aches, shortness of breath, and subjective fever. He has been using his inhalers without significant relief. This morning he had a single episode of coughing up blood and clots. He is unable to quantify the amount. His last bowel movement was this morning he denies melena/hematochezia. He denies hematemesis. He does report he has low back pain but says that this has been ongoing and chronic for the past year and there are no new changes to this. Patient is not vaccinated against the coronavirus. COVID test is pending. Thank you for the consult. Patient seen and examined. Vitals, labs, medications, chart and imaging reviewed. He states he lived in [place] before moving here. He smoked 1PPD for many years, but quit 20 years ago. He endorses a history of COPD, but does not remember if he was ever on oxygen therapy He is resting quietly in bed, and is on supplemental oxygen at 4L [place] He had a single episode of hemoptysis, no further episodes. His CXR is unremarkable. REVIEW OF SYSTEMS Constitutional: fever, weakness, other (No night sweats). denies: chills Eyes: denies: eye pain, vision change ENT: denies: throat pain, congestion Respiratory: cough, shortness of breath, other (hemoptysis) Cardiovascular: denies: chest pain, palpitations, edema, syncope Gastrointestinal: denies: abdominal pain, nausea, vomiting, diarrhea, constipation, melena Genitourinary: denies: dysuria, frequency, hematuria Musculoskeletal: back pain (chronic). denies: joint swelling Skin: denies: rash, lesions Neurological: denies: headache, weakness, numbness, paresthesias, confusion Hematological/Lymphatic: denies: easy bleeding, easy bruising Imaging personally reviewed: Chest CTA: No evidence PE. parenchymal disease within the lingula Abdomen pelvis CT: Mild colitis in the transverse colon and descending colon Medications and Allergies Allergies Allergy/AdvReac Type Severity Reaction Status Date / Time No Known Allergies Allergy Unverified 05/13/21 10:26 Home Medications Medication Instructions Recorded Confirmed Last Taken Type No Known Home Medications [No 05/14/21 05/14/21 Unknown History Reported Home Medications] Active Meds: Active Medications Acetaminophen (Acetaminophen 325 Mg Tab) 650 mg PO Q4H PRN PRN Reason: Pain MILD(1-3)/Fever >100.5/MARTINEZ Albuterol (Albuterol 2.5 Mg/3 Ml Nebu) 2.5 mg IH Q4H PRN PRN Reason: Wheezing Ascorbic Acid (Ascorbic Acid 500 Mg Tab) 1,000 mg PO BID [facility] Last Admin: 05/14/21 10:56 Dose: 1,000 mg Documented by: Cholecalciferol (Cholecalciferol (Vit D3) 5,000 Unit Tab) 5,000 unit PO DAILY [facility] Last Admin: 05/14/21 10:57 Dose: 5,000 unit Documented by: Dexamethasone (Dexamethasone 4 Mg/Ml Vial) 8 mg IV Q24H [facility] Last Admin: 05/14/21 03:37 Dose: 8 mg Documented by: Enoxaparin Sodium (Enoxaparin 40 Mg/0.4 Ml Inj) 40 mg SUB-Q QDAY [facility] Last Admin: 05/14/21 10:56 Dose: 40 mg Documented by: Famotidine (Famotidine 20 Mg Tab) 20 mg PO BID [facility] Last Admin: 05/14/21 10:56 Dose: 20 mg Documented by: Hydromorphone HCl (Hydromorphone 1 Mg/1 Ml Inj) 0.5 mg IV Q3H PRN PRN Reason: Pain , Severe (7-10) Azithromycin (Zithromax/Ns) 500 mg in 250 mls @ 250 mls/hr IV Q24H [facility] Last Admin: 05/14/21 01:53 Dose: 250 mls/hr Documented by: Ceftriaxone Sodium (Rocephin/Ns 2 Gm/100 Ml) 2 gm in 100 mls @ 200 mls/hr IV Q24H [facility]; Protocol Last Admin: 05/14/21 03:37 Dose: 200 mls/hr Documented by: Sodium Chloride (Nacl 0.9% 1000 Ml) 1,000 mls @ 75 mls/hr IV DIRECT [facility] Stop: 05/14/21 18:00 Metoclopramide HCl (Metoclopramide 10 Mg/2 Ml Inj) 10 mg IV Q6H PRN PRN Reason: Nausea And Vomiting Ondansetron HCl (Ondansetron 4 Mg/2 Ml Inj) 4 mg IV Q8H PRN PRN Reason: Nausea And Vomiting Oxycodone/Acetaminophen (Oxycodone /Acetaminophen 5-325mg Tab) 1 tab PO Q6H PRN PRN Reason: Pain, Moderate (4-6) Sodium Chloride (Sodium Chloride 0.9% 10 Ml Flush Syringe) 10 ml IV BID [facility] Last Admin: 05/14/21 10:54 Dose: 10 ml Documented by: Sodium Chloride (Sodium Chloride 0.9% 10 Ml Flush Syringe) 10 ml IV PRN PRN PRN Reason: LINE FLUSH Zinc Sulfate (Zinc Sulfate 220 Mg Cap) 220 mg PO BID [facility] Last Admin: 05/14/21 10:54 Dose: 220 mg Documented by: Physical Examination Vital signs: Vital Signs Temp Pulse Resp BP Pulse Ox 99.9 F H 114 H 18 94/65 97 05/13/21 10:26 05/13/21 10:26 05/13/21 10:26 05/13/21 10:26 05/13/21 10:26 General appearance: no acute distress, other (THIN, CHRONICALLY ILL LOOKING) Eyes: non-icteric ENT: oropharynx dry, other (POOR ORAL DENTITION) Neck: supple, no lymphadenopathy Effort: normal Ascultation: Bilateral: clear, diminished breath sounds Cardiovascular: regular rate and rhythm, other (s1,s2) Gastrointestinal: normoactive bowel sounds, soft, non-tender, non-distended Integumentary: normal Extremities: no cyanosis, no edema, other (DIGITAL CLUBBING) normal mental status, non-focal exam, pupils equal and round, motor strength normal and mood appropriate, affect normal Results - Laboratory Findings CBC and BMP: 05/15/21 05:24 05/15/21 05:24 PT/INR, D-dimer D-Dimer 314.43 ng/mlDDU (0-234) H 05/13/21 11:24 Abnormal lab findings: Abnormal Labs 05/13/21 05/13/21 05/13/21 11:24 11:24 11:24 WBC 4.1 L RBC 5.30 H Hgb 15.4 H Hct 46.6 H Plt Count Lymph % (Auto) 8.1 L [place] % (Auto) 10.4 H Lymph # (Auto) 0.3 L Seg Neutrophils % 81.0 H D-Dimer 314.43 H Carbon Dioxide Creatinine Glucose 121 H POC Glucose Hemoglobin A1c Lactic Acid AST 54 H Lactate Dehydrogenase C-Reactive Protein Total Protein Urine pH 05/13/21 05/13/21 05/13/21 11:24 14:38 15:45 WBC RBC Hgb Hct Plt Count Lymph % (Auto) [place] % (Auto) Lymph # (Auto) Seg Neutrophils % D-Dimer Carbon Dioxide Creatinine Glucose 125 H POC Glucose Hemoglobin A1c Lactic Acid 3.10 H* 2.40 H* AST Lactate Dehydrogenase 248 H C-Reactive Protein 7.40 H Total Protein Urine pH 05/13/21 05/14/21 05/14/21 Unknown 05:45 05:45 WBC 3.3 L RBC Hgb Hct Plt Count 138 L Lymph % (Auto) 7.8 L [place] % (Auto) Lymph # (Auto) 0.3 L Seg Neutrophils % 86.1 H D-Dimer Carbon Dioxide 21 L Creatinine 0.5 L Glucose 113 H POC Glucose Hemoglobin A1c Lactic Acid AST 84 H Lactate Dehydrogenase C-Reactive Protein Total Protein 6.2 L D Urine pH 9.0 H 05/14/21 05/14/21 05:45 11:15 WBC RBC Hgb Hct Plt Count Lymph % (Auto) [place] % (Auto) Lymph # (Auto) Seg Neutrophils % D-Dimer Carbon Dioxide Creatinine Glucose POC Glucose 141 H Hemoglobin A1c 9.8 H Lactic Acid AST Lactate Dehydrogenase C-Reactive Protein Total Protein Urine pH - Diagnostic Findings Chest x-ray: image reviewed CT scan - chest: image reviewed Assessment and Plan Hemoptysis h/o COPD SIRS (systemic inflammatory response syndrome) Viral syndrome T2DM (type 2 diabetes mellitus) Colitis -Titrate supplemental oxygen therapy to keep SpO2 89-90% -Get ABG -Keep on airborne and contact isolation while awaiting COVID PCR test results -Agree with bronchodilators -Agree with Dexamethasone for now -The hemoptysis was a single episode. On the CTscan, the pulmonary parenchyma findings are not impressive, so for now treat symptoms and monitro fro any further episodes of hemoptysis - If he has further episodes of hemoptysis, he will need bronchoscopy or IR -SCDs for VTE prophylaxis for now Thank you for the consult. Will follow
[2021-05-15] MEDS: cefTRIAXone/NS 2 GM/100 ML 2 GM/100 ML BAG IV SCH
[2021-05-15 07:13] LABS: Hematocrit 43.6 % (35.5-45.6); Hemoglobin 14.5 gm/dl (11.8-15.2); Mean Corpuscular HGB Conc 33 % (32-34); Mean Corpuscular Volume 88 fl (84-94); Platelet Count 144 K/mm3 (140-440); Red Blood Count 4.96 M/mm3 (3.65-5.03); Red Cell Distribution Width 13.2 % (13.2-15.2)
[2021-05-15 07:40] LABS: BUN/Creatinine Ratio 33; Blood Urea Nitrogen 20 mg/dL (9-20); Calcium 8.8 mg/dL (8.4-10.2); Hemolysis Index 6
--- NOTE | 2021-05-15 07:53 | Gastroenterology Consultation ---
History of Present Illness - Reason for Consult Consult date: 05/15/21 colitis Requesting physician: BRYNN BECKETT - History of Present Illness 76-year-old male with history of diabetes, COPD, right eye blindness and s/p colon cancer resection 1 year ago, admitted for cough/fever/episode hemoptysis, found to be COVID positive CT showed colitis Patient reports to me he had surgery on his colon approximately 1 year ago in [place] He reports currently no abdominal pain Denies diarrhea Just reports back pain - Past Medical History Previous Medical History?: Yes --Diabetes: Yes --COPD: Yes Additional medical history: Right eye blindness, -Surgical history Colon cancer s/p resection - Social History Smoking Status: Former Smoker Substance Use Type: None Family history Htn Obtained/updated/reviewed patient's current medications Medications and Allergies Allergies Allergy/AdvReac Type Severity Reaction Status Date / Time No Known Allergies Allergy Unverified 05/13/21 10:26 Home Medications Medication Instructions Recorded Confirmed Last Taken Type No Known Home Medications [No 05/14/21 05/14/21 Unknown History Reported Home Medications] Active Meds: Active Medications Acetaminophen (Acetaminophen 325 Mg Tab) 650 mg PO Q4H PRN PRN Reason: Pain MILD(1-3)/Fever >100.5/MARTINEZ Albuterol (Albuterol 2.5 Mg/3 Ml Nebu) 2.5 mg IH Q4H PRN PRN Reason: Wheezing Ascorbic Acid (Ascorbic Acid 500 Mg Tab) 1,000 mg PO BID [facility] Last Admin: 05/14/21 22:50 Dose: 1,000 mg Documented by: Cholecalciferol (Cholecalciferol (Vit D3) 5,000 Unit Tab) 5,000 unit PO DAILY [facility] Last Admin: 05/14/21 10:57 Dose: 5,000 unit Documented by: Dexamethasone (Dexamethasone 4 Mg/Ml Vial) 8 mg IV Q24H [facility] Last Admin: 05/14/21 22:50 Dose: 8 mg Documented by: Enoxaparin Sodium (Enoxaparin 40 Mg/0.4 Ml Inj) 40 mg SUB-Q QDAY [facility] Last Admin: 05/14/21 10:56 Dose: 40 mg Documented by: Famotidine (Famotidine 20 Mg Tab) 20 mg PO BID [facility] Last Admin: 05/14/21 22:50 Dose: 20 mg Documented by: Hydromorphone HCl (Hydromorphone 1 Mg/1 Ml Inj) 0.5 mg IV Q3H PRN PRN Reason: Pain , Severe (7-10) Azithromycin (Zithromax/Ns) 500 mg in 250 mls @ 250 mls/hr IV Q24H [facility] Last Admin: 05/14/21 22:50 Dose: 250 mls/hr Documented by: Ceftriaxone Sodium (Rocephin/Ns 2 Gm/100 Ml) 2 gm in 100 mls @ 200 mls/hr IV Q24H [facility]; Protocol Last Admin: 05/15/21 00:00 Dose: 200 mls/hr Documented by: Metoclopramide HCl (Metoclopramide 10 Mg/2 Ml Inj) 10 mg IV Q6H PRN PRN Reason: Nausea And Vomiting Ondansetron HCl (Ondansetron 4 Mg/2 Ml Inj) 4 mg IV Q8H PRN PRN Reason: Nausea And Vomiting Oxycodone/Acetaminophen (Oxycodone /Acetaminophen 5-325mg Tab) 1 tab PO Q6H PRN PRN Reason: Pain, Moderate (4-6) Sodium Chloride (Sodium Chloride 0.9% 10 Ml Flush Syringe) 10 ml IV BID [facility] Last Admin: 05/14/21 23:00 Dose: 10 ml Documented by: Sodium Chloride (Sodium Chloride 0.9% 10 Ml Flush Syringe) 10 ml IV PRN PRN PRN Reason: LINE FLUSH Zinc Sulfate (Zinc Sulfate 220 Mg Cap) 220 mg PO BID [facility] Last Admin: 05/14/21 22:50 Dose: 220 mg Documented by: Review of Systems - Review of Systems All systems: negative (10 Systems reviewed and negative except as mentioned above in the history of present illness) Exam - Constitutional Vital Signs: Temp Pulse Resp BP Pulse Ox 98.0 F 59 L 18 130/77 98 05/15/21 05:56 05/15/21 05:56 05/15/21 05:56 05/15/21 05:56 05/15/21 05:56 General appearance: no acute distress - EENT Eyes: EOM intact - Neck Neck: supple - Respiratory Respiratory effort: normal - Cardiovascular Rhythm: regular - Gastrointestinal General gastrointestinal: Present: soft, normal bowel sounds, other (Umbilical hernia) - Integumentary Integumentary: Present: dry - Musculoskeletal Musculoskeletal: normal - Neurologic Neurological: alert and oriented x3 - Psychiatric Psychiatric: appropriate mood/affect - Labs CBC & Chem 7: 05/15/21 05:24 05/15/21 05:24 Lab Results: Laboratory Results - last 24 hr 05/14/21 05/14/21 05/15/21 11:15 Unknown 05:24 WBC 5.5 RBC 4.96 Hgb 14.5 Hct 43.6 MCV 88 MCH 29 MCHC 33 RDW 13.2 Plt Count 144 Sodium Potassium Chloride Carbon Dioxide Anion Gap BUN Creatinine Estimated GFR BUN/Creatinine Ratio Glucose POC Glucose 141 H Calcium Coronavirus (PCR) Positive A 05/15/21 05:24 WBC RBC Hgb Hct MCV MCH MCHC RDW Plt Count Sodium 141 Potassium 4.7 Chloride 102.8 Carbon Dioxide 25 Anion Gap 18 BUN 20 Creatinine 0.6 L Estimated GFR > 60 BUN/Creatinine Ratio 33 Glucose 183 H POC Glucose Calcium 8.8 Coronavirus (PCR) Assessment and Plan Patient's Covid test returned positive Patient clinically without GI symptoms but colitis on CAT scan Therefore highest on the differential diagnosis would be Covid related colitis No indication for colonoscopy at this juncture Recommend supportive care and treatment of the underlying Covid infection Patient can follow-up with us as an outpatient GI will sign off please call back if we can be of any further assistance - Patient Problems (1) Gastroenteritis due to COVID-19 virus Current Visit: Yes Status: Acute (2) Pneumonia due to COVID-19 virus Current Visit: Yes Status: Acute (3) Colitis Current Visit: Yes Status: Acute
--- NOTE | 2021-05-15 09:16 | Consultation ---
History of Present Illness - Reason for Consult Consult date: 05/15/21 - History of Present Illness 76-year-old man past medical history diabetes, COPD, colon cancer with resection 1 year previous presented to hospital with cough and fever. This began approximate 2 to 3 days prior to admission, and associated with generalized weakness. He did report one episode of hemoptysis patient denies receiving COVID-19 vaccine. Afebrile since admission with a white count initially of 3.3, now 5.5. Covid positive. Blood cultures no growth so far. Currently receiving ceftriaxone azithromycin. Procalcitonin normal. Normal renal function. Does not appear to be hypoxic. Imaging personally reviewed: Chest CTA: No evidence PE. parenchymal disease within the lingula Abdomen pelvis CT: Mild colitis in the transverse colon and descending colon Review of systems: Deferred to reduce to the risk of transmission of COVID-19 Medications and Allergies Allergies Allergy/AdvReac Type Severity Reaction Status Date / Time No Known Allergies Allergy Unverified 05/13/21 10:26 Home Medications Medication Instructions Recorded Confirmed Last Taken Type No Known Home Medications [No 05/14/21 05/14/21 Unknown History Reported Home Medications] Active Meds: Active Medications Acetaminophen (Acetaminophen 325 Mg Tab) 650 mg PO Q4H PRN PRN Reason: Pain MILD(1-3)/Fever >100.5/MARTINEZ Albuterol (Albuterol 2.5 Mg/3 Ml Nebu) 2.5 mg IH Q4H PRN PRN Reason: Wheezing Ascorbic Acid (Ascorbic Acid 500 Mg Tab) 1,000 mg PO BID [facility] Last Admin: 05/14/21 22:50 Dose: 1,000 mg Documented by: Cholecalciferol (Cholecalciferol (Vit D3) 5,000 Unit Tab) 5,000 unit PO DAILY [facility] Last Admin: 05/14/21 10:57 Dose: 5,000 unit Documented by: Dexamethasone (Dexamethasone 4 Mg/Ml Vial) 8 mg IV Q24H [facility] Last Admin: 05/14/21 22:50 Dose: 8 mg Documented by: Enoxaparin Sodium (Enoxaparin 40 Mg/0.4 Ml Inj) 40 mg SUB-Q QDAY [facility] Last Admin: 05/14/21 10:56 Dose: 40 mg Documented by: Famotidine (Famotidine 20 Mg Tab) 20 mg PO BID [facility] Last Admin: 05/14/21 22:50 Dose: 20 mg Documented by: Hydromorphone HCl (Hydromorphone 1 Mg/1 Ml Inj) 0.5 mg IV Q3H PRN PRN Reason: Pain , Severe (7-10) Azithromycin (Zithromax/Ns) 500 mg in 250 mls @ 250 mls/hr IV Q24H [facility] Last Admin: 05/14/21 22:50 Dose: 250 mls/hr Documented by: Ceftriaxone Sodium (Rocephin/Ns 2 Gm/100 Ml) 2 gm in 100 mls @ 200 mls/hr IV Q24H [facility]; Protocol Last Admin: 05/15/21 00:00 Dose: 200 mls/hr Documented by: Metoclopramide HCl (Metoclopramide 10 Mg/2 Ml Inj) 10 mg IV Q6H PRN PRN Reason: Nausea And Vomiting Ondansetron HCl (Ondansetron 4 Mg/2 Ml Inj) 4 mg IV Q8H PRN PRN Reason: Nausea And Vomiting Oxycodone/Acetaminophen (Oxycodone /Acetaminophen 5-325mg Tab) 1 tab PO Q6H PRN PRN Reason: Pain, Moderate (4-6) Sodium Chloride (Sodium Chloride 0.9% 10 Ml Flush Syringe) 10 ml IV BID [facility] Last Admin: 05/14/21 23:00 Dose: 10 ml Documented by: Sodium Chloride (Sodium Chloride 0.9% 10 Ml Flush Syringe) 10 ml IV PRN PRN PRN Reason: LINE FLUSH Zinc Sulfate (Zinc Sulfate 220 Mg Cap) 220 mg PO BID [facility] Last Admin: 05/14/21 22:50 Dose: 220 mg Documented by: Physical Examination - Physical Exam Narrative exam: Physical exam deferred to reduce risk of transmission of COVID-19. Please refer to primary team's note. - Constitutional Vitals: Vital Signs Temp Pulse Resp BP Pulse Ox 98.0 F 59 L 18 130/77 98 05/15/21 05:56 05/15/21 05:56 05/15/21 05:56 05/15/21 05:56 05/15/21 05:56 Temperature -Last 24 Hours Temperature 98.0 F Temperature 98.0 F Temperature 97.8 F Temperature 97.4 F Results - Labs CBC & Chem 7: 05/15/21 05:24 05/15/21 05:24 Labs: Abnormal lab results 05/14/21 05/14/21 05/15/21 Range/Units 11:15 Unknown 05:24 Creatinine 0.6 L (0.8-1.3) mg/dL Glucose 183 H (75-100) mg/dL POC Glucose 141 H (70-105) mg/dL Coronavirus (PCR) Positive A (Negative) 05/15/21 Range/Units 07:48 Creatinine (0.8-1.3) mg/dL Glucose (75-100) mg/dL POC Glucose 187 H (70-105) mg/dL Coronavirus (PCR) (Negative) Assessment and Plan Cultures: Blood culture no growth so far Urine culture no growth so far A/P: 76-year-old man past medical history diabetes, COPD, colon cancer with resection 1 year previous admitted with COVID-19 #Covid infection: Does appear to be hypoxic, on room air. Can start remdesivir if requiring supplemental oxygen. #Colitis: Likely secondary to the Covid. Does not require antibiotics at this time. Normal calcitonin, normal white count. #Diabetes: tight glycemic control for best outcomes. #COPD #History of colon cancer Recs: -Continue dexamethasone 6 mg daily to complete 10 days. -Stop antibiotics -Obtain q48-72h inflammatory markers - ferritin, Ddimer, CRP, LDH -Anticoagulation per hospital protocol -If patient requires supplemental oxygen can start remdesivir to complete 5 days. Thank you for the consult, we will continue to follow. MD Yisel [facility] O: [phone] F: [phone]
--- NOTE | 2021-05-15 09:56 | Progress Note ---
Assessment and Plan Assessment and plan: 76-year-old male with history of diabetes, COPD, right eye blindness and s/p colon cancer resection 1 year ago, chronic back pain comes where EMS for cough and fever of 2 to 3 days. Patient also has generalized weakness. Patient had one episode of coughing up blood this morning but is not sure. It was only one episode and was not followed by any wheezing syncope etc. Patient has been using inhalers without significant relief. No hematemesis or melena. No weight loss. Patient is unvaccinated. In the emergency room patient dialysis low-grade fever of 99.9. And patient had tachycardic with heart rate of 114/min. Covid-19 infection ID following On Decadron On Oxygen 2l/min by BILLY Acute resp failure due to Covid-19 On Oxygen nc at 2l/min Follow up repeat CXR in am SIRS (systemic inflammatory response syndrome) Current Visit: Yes Status: Acute Plan to address problem: Patient has tachycardia elevated lactic acid level and temperature of 99.9 IV fluids for 12 hours Hemoptysis Current Visit: Yes Status: Acute Plan to address problem: Not clear whether the history is accurate No cavity or mass on CT of the chest Pulmonary consult requested Bronchoscopy if hemoptysis persists COPD exacerbation Current Visit: Yes Status: Acute Plan to address problem: Duo nebs and IV Decadron T2DM (type 2 diabetes mellitus) Current Visit: Yes Status: Chronic Qualifiers: Diabetes mellitus half-way insulin use: unspecified half-way insulin use status Plan to address problem: Check hemoglobin A1c Coverage for now Acute Colitis Current Visit: Yes Status: Acute Plan to address problem: Nonspecific No abdominal complaints Patient on clear liquids GI consult regarding advancing diet Patient on IV Rocephin DVT prophylaxis Current Visit: Yes Status: Acute Plan to address problem: On heparin and GI prophylaxis 05/14/21 Patient with diabetes, COPD presents with fever and cough, hemoptysis. CXR unremarkable. CT Abd shows colitis. Will consult GI. Pulm consulted. 05/15/21 Patient with diabetes , COPD presented with fever, cough, hemoptysis. Covid-19 positive. On Decadron, Zinc. Acute resp failure due to Covid-19. Oxygen sat 98 % on 2l/min Oxygen by NC. ID Physician following. Colitis seen on CT abdomen. Patient evaluated by GI and signed off. No an tibiotics recommended since no abd pain, no diarrhea. History Interval history: Fever and cough One episode of coughing up blood Gen weakness Hospitalist Physical - Physical exam Narrative exam: Gen: Not in acute distress, lying in bed HEENT: Normocephalic, atraumatic Neck : supple, no JVD Heart:S1 and S2 reg, no murmurs, rubs or gallop Lungs: clear to auscultation bilaterally, no wheeze Abd: Soft , non tender, non distended, normal bowel sounds Ext: No edema, no clubbing, no cyanosis Neuro: Awake, alert, oriented, moves all ext, blind right eye - Constitutional Vitals: Temp Pulse Resp BP Pulse Ox 98.0 F 59 L 18 130/77 98 05/15/21 05:56 05/15/21 05:56 05/15/21 05:56 05/15/21 05:56 05/15/21 05:56 General appearance: Present: well-nourished HEART Score - HEART Score EKG: Normal Age: > 65 Risk factors: 1-2 risk factors Troponin: Troponin T < 0.010 ng/mL (0.00-0.029) 05/13/21 14:38 Troponin: < normal limit - Critical Actions Critical Actions: 0-3 pts:0.9-1.7%risk of adverse cardiac event.Candidate for discharge Results - Labs CBC & Chem 7: 05/15/21 05:24 05/15/21 14:10 Labs: Laboratory Last Values WBC 5.5 K/mm3 (4.5-11.0) 05/15/21 05:24 RBC 4.96 M/mm3 (3.65-5.03) 05/15/21 05:24 Hgb 14.5 gm/dl (11.8-15.2) 05/15/21 05:24 Hct 43.6 % (35.5-45.6) 05/15/21 05:24 MCV 88 fl (84-94) 05/15/21 05:24 MCH 29 pg (28-32) 05/15/21 05:24 MCHC 33 % (32-34) 05/15/21 05:24 RDW 13.2 % (13.2-15.2) 05/15/21 05:24 Plt Count 144 K/mm3 (140-440) 05/15/21 05:24 Lymph % (Auto) 7.8 % (13.4-35.0) L 05/14/21 05:45 [place] % (Auto) 6.0 % (0.0-7.3) 05/14/21 05:45 Eos % (Auto) 0.0 % (0.0-4.3) 05/14/21 05:45 Baso % (Auto) 0.1 % (0.0-1.8) 05/14/21 05:45 Lymph # (Auto) 0.3 K/mm3 (1.2-5.4) L 05/14/21 05:45 [place] # (Auto) 0.2 K/mm3 (0.0-0.8) 05/14/21 05:45 Eos # (Auto) 0.0 K/mm3 (0.0-0.4) 05/14/21 05:45 Baso # (Auto) 0.0 K/mm3 (0.0-0.1) 05/14/21 05:45 Seg Neutrophils % 86.1 % (40.0-70.0) H 05/14/21 05:45 Seg Neutrophils # 2.8 K/mm3 (1.8-7.7) 05/14/21 05:45 D-Dimer 314.43 ng/mlDDU (0-234) H 05/13/21 11:24 Sodium 141 mmol/L (137-145) 05/15/21 05:24 Potassium 4.7 mmol/L (3.6-5.0) 05/15/21 05:24 Chloride 102.8 mmol/L (98-107) 05/15/21 05:24 Carbon Dioxide 25 mmol/L (22-30) 05/15/21 05:24 Anion Gap 18 mmol/L 05/15/21 05:24 BUN 20 mg/dL (9-20) 05/15/21 05:24 Creatinine 0.6 mg/dL (0.8-1.3) L 05/15/21 05:24 Estimated GFR > 60 ml/min 05/15/21 05:24 BUN/Creatinine Ratio 33 % 05/15/21 05:24 Glucose 183 mg/dL (75-100) H 05/15/21 05:24 POC Glucose 187 mg/dL (70-105) H 05/15/21 07:48 Hemoglobin A1c 9.8 % (4-6) H 05/14/21 05:45 Lactic Acid 2.40 mmol/L (0.7-2.0) H* 05/13/21 15:45 Calcium 8.8 mg/dL (8.4-10.2) 05/15/21 05:24 Ferritin 262.6 ng/mL (30.0-300.0) 05/13/21 11:24 Total Bilirubin 0.40 mg/dL (0.1-1.2) 05/14/21 05:45 AST 84 units/L (5-40) H 05/14/21 05:45 ALT 53 units/L (7-56) 05/14/21 05:45 Alkaline Phosphatase 55 units/L (35-129) 05/14/21 05:45 Lactate Dehydrogenase 248 units/L (91-180) H 05/13/21 11:24 Troponin T < 0.010 ng/mL (0.00-0.029) 05/13/21 14:38 C-Reactive Protein 7.40 mg/dL (0.00-1.30) H 05/13/21 11:24 Total Protein 6.2 g/dL (6.3-8.2) L D 05/14/21 05:45 Albumin 3.9 g/dL (3.9-5) 05/14/21 05:45 Albumin/Globulin Ratio 1.7 % 05/14/21 05:45 Procalcitonin < 0.05 ng/mL (<0.15) 05/13/21 11:24 Urine Color Yellow (Yellow) 05/13/21 Unknown Urine Turbidity Clear (Clear) 05/13/21 Unknown Urine pH 9.0 (5.0-7.0) H 05/13/21 Unknown Ur Specific [place] 1.012 (1.003-1.030) 05/13/21 Unknown Urine Protein <15 mg/dl mg/dL (Negative) 05/13/21 Unknown Urine Glucose (UA) Neg mg/dL (Negative) 05/13/21 Unknown Urine Ketones Neg mg/dL (Negative) 05/13/21 Unknown Urine Blood Neg (Negative) 05/13/21 Unknown Urine Nitrite Neg (Negative) 05/13/21 Unknown Urine Bilirubin Neg (Negative) 05/13/21 Unknown Urine Urobilinogen < 2.0 mg/dL (<2.0) 05/13/21 Unknown Ur Leukocyte Esterase Neg (Negative) 05/13/21 Unknown Urine WBC (Auto) 1.0 /HPF (0.0-6.0) 05/13/21 Unknown Urine RBC (Auto) < 1.0 /HPF (0.0-6.0) 05/13/21 Unknown Urine Bacteria (Auto) 1+ /HPF (Negative) 05/13/21 Unknown Coronavirus (PCR) Positive (Negative) A 05/14/21 Unknown Microbiology: Microbiology 05/13/21 13:05 Urine,Clean Catch Urine Culture - Preliminary 05/13/21 11:24 Peripheral/Venous Blood Culture - Preliminary NO GROWTH AFTER 24 HOURS 05/13/21 11:24 Peripheral/Venous Blood Culture - Preliminary NO GROWTH AFTER 24 HOURS Quan/IV: Voiding Method Urinal Active Medications - Current Medications Current Medications: Generic Name Dose Route Start Last Admin Trade Name Freq PRN Reason Stop Dose Admin Acetaminophen 650 mg 05/13/21 23:07 Acetaminophen 325 Mg Tab PO Q4H PRN Pain MILD(1-3)/Fever >100.5/MARTINEZ Albuterol 2.5 mg 05/14/21 10:58 Albuterol 2.5 Mg/3 Ml Nebu IH Q4H PRN Wheezing Ascorbic Acid 1,000 mg 05/13/21 23:45 05/14/21 22:50 Ascorbic Acid 500 Mg Tab PO 1,000 mg BID SARIAH Administration Cholecalciferol 5,000 unit 05/14/21 10:00 05/14/21 10:57 Cholecalciferol (Vit D3) 5,000 Unit Tab PO 5,000 unit DAILY SARIAH Administration Dexamethasone 8 mg 05/13/21 23:45 05/14/21 22:50 Dexamethasone 4 Mg/Ml Vial IV 8 mg Q24H SARIAH Administration Enoxaparin Sodium 40 mg 05/14/21 10:00 05/14/21 10:56 Enoxaparin 40 Mg/0.4 Ml Inj SUB-Q 40 mg QDAY SARIAH Administration Famotidine 20 mg 05/14/21 10:00 05/14/21 22:50 Famotidine 20 Mg Tab PO 20 mg BID SARIAH Administration Hydromorphone HCl 0.5 mg 05/13/21 23:07 Hydromorphone 1 Mg/1 Ml Inj IV Q3H PRN Pain , Severe (7-10) Azithromycin 500 mg in 250 mls @ 250 mls/hr 05/13/21 23:45 05/14/21 22:50 Zithromax/Ns IV 250 mls/hr Q24H SARIAH Administration Ceftriaxone Sodium 2 gm in 100 mls @ 200 mls/hr 05/13/21 23:45 05/15/21 00:00 Rocephin/Ns 2 Gm/100 Ml IV 200 mls/hr Q24H SARIAH Administration Protocol Metoclopramide HCl 10 mg 05/13/21 23:07 Metoclopramide 10 Mg/2 Ml Inj IV Q6H PRN Nausea And Vomiting Ondansetron HCl 4 mg 05/13/21 23:07 Ondansetron 4 Mg/2 Ml Inj IV Q8H PRN Nausea And Vomiting Oxycodone/Acetaminophen 1 tab 05/13/21 23:07 Oxycodone /Acetaminophen 5-325mg Tab PO Q6H PRN Pain, Moderate (4-6) Sodium Chloride 10 ml 05/14/21 10:00 05/14/21 23:00 Sodium Chloride 0.9% 10 Ml Flush Syringe IV 10 ml BID SARIAH Administration Sodium Chloride 10 ml 05/13/21 23:07 Sodium Chloride 0.9% 10 Ml Flush Syringe IV PRN PRN LINE FLUSH Zinc Sulfate 220 mg 05/13/21 23:45 05/14/21 22:50 Zinc Sulfate 220 Mg Cap PO 220 mg BID SARIAH Administration
[2021-05-15] MEDS ORDERED: DEXTROSE 50% IN WATER (25GM) 50 ML SYRINGE IV PRN (10:22)
[2021-05-15] MEDS ORDERED: dexAMETHasone 4 MG/ML VIAL IV SCH (11:00)
[2021-05-15] MEDS: INSULIN LISPRO 100 UNIT/ML SUB-Q SCH ×3 (13:35→22:28)
[2021-05-15] MEDS: FAMOTIDINE 20 MG TAB PO SCH ×2 (13:36→22:28)
[2021-05-15] MEDS: ENOXAPARIN 40 MG/0.4 ML INJ SUB-Q SCH (13:36)
[2021-05-15] MEDS: ASCORBIC ACID 500 MG TAB PO SCH ×2 (13:36→22:28)
[2021-05-15] MEDS: CHOLECALCIFEROL (VIT D3) 5,000 UNIT TAB PO SCH (13:36)
[2021-05-15] MEDS: ZINC SULFATE 220 MG CAP PO SCH ×2 (13:39→22:28)
--- NOTE | 2021-05-15 13:56 | Progress Note ---
Assessment and Plan 76-year-old male with history of diabetes, COPD, right eye blindness and s/p colon cancer resection 1 year ago, chronic back pain comes where EMS for cough and fever of 2 to 3 days. Patient also has generalized weakness. Patient had one episode of coughing up blood this morning but is not sure. It was only one episode and was not followed by any wheezing syncope etc. Patient has been using inhalers without significant relief. No hematemesis or melena. No weight loss. Patient is unvaccinated. In the emergency room patient dialysis low-grade fever of 99.9. And patient is also tachycardic with heart rate of 114/min. Patient alert, awake. Resting on 2 litres o2. O2 saturation 97%. No acute respiratory distress. Complaining shortness of breath and cough. Patient afebrile. No leukocytosis. D Dimer slightly elevated. Patients Angio CT of chest reported No CT evidence for pulmonary embolism. No evidence for thoracic aortic dissection. Linear parenchymal disease is present within the lingula. It is unclear if this is acute or chronic. Favor that this is atelectasis or chronic scarring. Unfortunately, there are no prior imaging studies for comparison. Mild emphysematous change. Patients brant[place] virus PCR is Positive. Patient is on Dexamethasone, Lovenox and famotidine.Finished course of zithromax and ceftriaxone. - Patient Problems (1) COPD exacerbation Current Visit: Yes Status: Acute Plan to address problem: On 2 litres O2. Continue dexamethasone Albuterol nhaler S/C Lovenox Famotidine. Reglan. (2) Gastroenteritis due to COVID-19 virus Current Visit: Yes Status: Acute Plan to address problem: Managment as per primary care and Gastroenterology. (3) Hemoptysis Current Visit: Yes Status: Acute Plan to address problem: No hemoptysis at this time. (4) Hypoxia Current Visit: Yes Status: Acute Plan to address problem: On 2 litres O2. O2 saturation 97%. (5) Pneumonia due to COVID-19 virus Current Visit: Yes Status: Acute Plan to address problem: Patient was on Azithromycin (6) SIRS (systemic inflammatory response syndrome) Current Visit: Yes Status: Acute Plan to address problem: Improving. Patient afebrile No leukocytosis. 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 (8) Coronavirus infection Current Visit: Yes Status: Acute Plan to address problem: Management as infectious diseases. Subjective Date of service: 05/15/21 Interval history: 76-year-old male with history of diabetes, COPD, right eye blindness and s/p colon cancer resection 1 year ago, chronic back pain comes where EMS for cough and fever of 2 to 3 days. Patient also has generalized weakness. Patient had one episode of coughing up blood this morning but is not sure. It was only one episode and was not followed by any wheezing syncope etc. Patient has been using inhalers without significant relief. No hematemesis or melena. No weight loss. Patient is unvaccinated. In the emergency room patient dialysis low-grade fever of 99.9. And patient is also tachycardic with heart rate of 114/min. Patients brantley virus PCR is Positive. Patient alert, awake. Resting on 2 litres o2. O2 saturation 97%. No acute respiratory distress. Complaining shortness of breath and cough. Patient afebrile. No leukocytosis. D Dimer slightly elevated. Patients Angio CT of chest reported No CT evidence for pulmonary embolism. No evidence for thoracic aortic dissection. Linear parenchymal disease is present within the lingula. It is unclear if this is acute or chronic. Favor that this is atelectasis or chronic scarring. Unfortunately, there are no prior imaging studies for comparison. Mild emphysematous change. Patient is on Dexamethasone, Lovenox and famotidine.Finished course of zithromax and ceftriaxone. Objective Vital Signs - 12hr 05/15/21 05/15/21 05:56 11:01 Temperature 98.0 F 97.7 F Pulse Rate 59 L 86 Respiratory 18 18 Rate Blood Pressure 130/77 102/76 O2 Sat by Pulse 98 92 Oximetry Constitutional: no acute distress, alert, other (THIN, CHRONICALLY ILL LOOKING) Eyes: non-icteric ENT: oropharynx dry, other (POOR ORAL DENTITION) Neck: supple, no lymphadenopathy Effort: normal Ascultation: Bilateral: diminished breath sounds Cardiovascular: regular rate and rhythm, other (s1,s2) Gastrointestinal: normoactive bowel sounds, soft, non-tender, non-distended Integumentary: normal Extremities: no cyanosis, no edema, other (DIGITAL CLUBBING) Neurologic: normal mental status, non-focal exam, pupils equal and round, motor strength normal and Psychiatric: mood appropriate, affect normal CBC and BMP: 05/15/21 05:24 05/15/21 14:10 ABG, PT/INR, D-dimer: PT/INR, D-dimer D-Dimer 314.43 ng/mlDDU (0-234) H 05/13/21 11:24 Abnormal lab findings: Abnormal Labs 05/13/21 05/13/21 05/13/21 11:24 11:24 11:24 WBC 4.1 L RBC 5.30 H Hgb 15.4 H Hct 46.6 H Plt Count Lymph % (Auto) 8.1 L [place] % (Auto) 10.4 H Lymph # (Auto) 0.3 L Seg Neutrophils % 81.0 H D-Dimer 314.43 H Carbon Dioxide Creatinine Glucose 121 H POC Glucose Hemoglobin A1c Lactic Acid AST 54 H Lactate Dehydrogenase C-Reactive Protein Total Protein Urine pH Coronavirus (PCR) 05/13/21 05/13/21 05/13/21 11:24 14:38 15:45 WBC RBC Hgb Hct Plt Count Lymph % (Auto) [place] % (Auto) Lymph # (Auto) Seg Neutrophils % D-Dimer Carbon Dioxide Creatinine Glucose 125 H POC Glucose Hemoglobin A1c Lactic Acid 3.10 H* 2.40 H* AST Lactate Dehydrogenase 248 H C-Reactive Protein 7.40 H Total Protein Urine pH Coronavirus (PCR) 05/13/21 05/14/21 05/14/21 Unknown 05:45 05:45 WBC 3.3 L RBC Hgb Hct Plt Count 138 L Lymph % (Auto) 7.8 L [place] % (Auto) Lymph # (Auto) 0.3 L Seg Neutrophils % 86.1 H D-Dimer Carbon Dioxide 21 L Creatinine 0.5 L Glucose 113 H POC Glucose Hemoglobin A1c Lactic Acid AST 84 H Lactate Dehydrogenase C-Reactive Protein Total Protein 6.2 L D Urine pH 9.0 H Coronavirus (PCR) 05/14/21 05/14/21 05/14/21 05:45 11:15 Unknown WBC RBC Hgb Hct Plt Count Lymph % (Auto) [place] % (Auto) Lymph # (Auto) Seg Neutrophils % D-Dimer Carbon Dioxide Creatinine Glucose POC Glucose 141 H Hemoglobin A1c 9.8 H Lactic Acid AST Lactate Dehydrogenase C-Reactive Protein Total Protein Urine pH Coronavirus (PCR) Positive A 05/15/21 05/15/21 05/15/21 05:24 07:48 12:10 WBC RBC Hgb Hct Plt Count Lymph % (Auto) [place] % (Auto) Lymph # (Auto) Seg Neutrophils % D-Dimer Carbon Dioxide Creatinine 0.6 L Glucose 183 H POC Glucose 187 H 251 H Hemoglobin A1c Lactic Acid AST Lactate Dehydrogenase C-Reactive Protein Total Protein Urine pH Coronavirus (PCR) Chest x-ray: report reviewed, image reviewed CT scan - chest: report reviewed, image reviewed Additional Studies: CHEST 1 VIEW 05/13/21 INDICATION / CLINICAL INFORMATION: hemoptysis, tachycardia. COMPARISON: None available. FINDINGS: SUPPORT DEVICES: None. HEART / MEDIASTINUM: No significant abnormality. LUNGS / PLEURA: No significant pulmonary or pleural abnormality. No pneumothorax. ADDITIONAL FINDINGS: No significant additional findings. IMPRESSION: 1. No acute findings. CTA CHEST WITH IV CONTRAST 05/13/21 INDICATION / CLINICAL INFORMATION: assess for PE vs dissection vs other OMNI 350 100 ML. TECHNIQUE: Axial CT images were obtained through the chest after injection of 100 mL IV contrast. 3 plane MIP and/or 3D reconstructions were produced. All CT scans at this location are performed using CT dose reduction for ALARA by means of automated exposure control. COMPARISON: Chest radiograph from today. FINDINGS: PULMONARY ARTERIES: No pulmonary emboli. THORACIC AORTA: No significant abnormality. Mild calcific plaque is present but no evidence of aneurysm or dissection. HEART: No significant abnormality. Trace pericardial effusion CORONARY ARTERIES: Some coronary artery calcification is present. PLEURA: No pleural effusion. No pneumothorax. LYMPH NODES: No significant adenopathy. LUNGS: There is focal linear parenchymal disease in the lingula with the appearance more suggestive of atelectasis. Pneumonia is not entirely excluded, however. Mild emphysematous changes present. ADDITIONAL FINDINGS: None. UPPER ABDOMEN: Small hiatal hernia. SKELETAL STRUCTURES: Mild spondylitic change but no acute osseous abnormality. IMPRESSION: 1. No CT evidence for pulmonary embolism. No evidence for thoracic aortic dissection. 2. Linear parenchymal disease is present within the lingula. It is unclear if this is acute or chronic. I would favor that this is atelectasis or chronic scarring. Unfortunately, there are no prior imaging studies for comparison. 3. Mild emphysematous change.
[2021-05-15 14:46] LABS: C-Reactive Protein 3.5 mg/dL (0.00-1.30)
--- NOTE | 2021-05-15 21:02 | Electrocardiograph Report ---
[facility] Test Date: 2021-05-13 Test Time: 10:36:18 Pat Name: ALLY YORK Department: Room: A353 1 Gender: M New Order Clerk: ELVI : 1945 Requested By: ALEXIS BEYER Order Number: [id number] Reading MD: Nikunj Serrano Measurements Intervals [place] Rate: 111 P: 60 WI: 206 QRS: -68 QRSD: 121 T: 89 QT: 332 QTc: 452 Interpretive Statements Sinus tachycardia Nonspecific IVCD with LAD Anterior infarct, old No previous ECG available for comparison Electronically Signed On 05-15-2021 21:02:21 EDT by Nikunj Serrano
[2021-05-16] MEDS: INSULIN LISPRO 100 UNIT/ML SUB-Q SCH ×4 (08:33→22:33)
--- NOTE | 2021-05-16 08:44 | Progress Note ---
Assessment and Plan 76-year-old male with history of diabetes, COPD, right eye blindness and s/p colon cancer resection 1 year ago, chronic back pain comes where EMS for cough and fever of 2 to 3 days. Patient also has generalized weakness. Patient had one episode of coughing up blood this morning but is not sure. It was only one episode and was not followed by any wheezing syncope etc. Patient has been using inhalers without significant relief. No hematemesis or melena. No weight loss. Patient is unvaccinated. In the emergency room patient dialysis low-grade fever of 99.9. And patient is also tachycardic with heart rate of 114/min. Patient alert, awake. Resting on 1 litre o2. O2 saturation 99%. No acute respiratory distress. Patient afebrile. No leukocytosis. D Dimer elevated. Patients Angio CT of chest reported No CT evidence for pulmonary embolism. No evidence for thoracic aortic dissection. Linear parenchymal disease is present within the lingula. It is unclear if this is acute or chronic. Favor that this is atelectasis or chronic scarring. Unfortunately, there are no prior imaging studies for comparison. Mild emphysematous change. Patient is on Dexamethasone, Lovenox and famotidine.Finished course of zithromax and ceftriaxone. - Patient Problems (1) COPD exacerbation Current Visit: Yes Status: Acute Plan to address problem: On 1 litre O2. Continue dexamethasone Albuterol nhaler S/C Lovenox Famotidine. Reglan. (2) Gastroenteritis due to COVID-19 virus Current Visit: Yes Status: Acute Plan to address problem: Managment as per primary care and Gastroenterology. (3) Hemoptysis Current Visit: Yes Status: Acute Plan to address problem: No hemoptysis at this time. (4) Hypoxia Current Visit: Yes Status: Acute Plan to address problem: On 1 litres O2. O2 saturation 99%. (5) Pneumonia due to COVID-19 virus Current Visit: Yes Status: Acute Plan to address problem: Patient was on Azithromycin (6) SIRS (systemic inflammatory response syndrome) Current Visit: Yes Status: Acute Plan to address problem: Improving. Patient afebrile No leukocytosis. (7) T2DM (type 2 diabetes mellitus) Current Visit: Yes Status: Chronic Qualifiers: Diabetes mellitus intermediate insulin use: unspecified termite helper insulin use status Plan to address problem: Management as per primary care. (8) Coronavirus infection Current Visit: Yes Status: Acute Plan to address problem: Management as infectious diseases. Subjective Date of service: 05/16/21 Interval history: 76-year-old male with history of diabetes, COPD, right eye blindness and s/p colon cancer resection 1 year ago, chronic back pain comes where EMS for cough and fever of 2 to 3 days. Patient also has generalized weakness. Patient had one episode of coughing up blood this morning but is not sure. It was only one episode and was not followed by any wheezing syncope etc. Patient has been using inhalers without significant relief. No hematemesis or melena. No weight loss. Patient is unvaccinated. In the emergency room patient dialysis low-grade fever of 99.9. And patient is also tachycardic with heart rate of 114/min. Patients brantley virus PCR is Positive. Patient alert, awake. Resting on 1 litre o2. O2 saturation 99%. No acute respiratory distress. Patient afebrile. No leukocytosis. D Dimer elevated. Patients Angio CT of chest reported No CT evidence for pulmonary embolism. No evidence for thoracic aortic dissection. Linear parenchymal disease is present within the lingula. It is unclear if this is acute or chronic. Favor that this is atelectasis or chronic scarring. Unfortunately, there are no prior imaging studies for comparison. Mild emphysematous change. Patient is on Dexamethasone, Lovenox and famotidine.Finished course of zithromax and ceftriaxone. Objective Vital Signs - 12hr 05/15/21 23:00 O2 Sat by Pulse 99 Oximetry Constitutional: no acute distress, alert, other (Thin) Eyes: non-icteric ENT: oropharynx dry, other (POOR ORAL DENTITION) Neck: supple, no lymphadenopathy Effort: normal Ascultation: Bilateral: diminished breath sounds Cardiovascular: regular rate and rhythm, other (s1,s2) Gastrointestinal: normoactive bowel sounds, soft, non-tender, non-distended Integumentary: normal Extremities: no cyanosis, no edema, other (DIGITAL CLUBBING) Neurologic: normal mental status, non-focal exam, pupils equal and round, motor strength normal and Psychiatric: mood appropriate, affect normal CBC and BMP: 05/15/21 05:24 05/15/21 14:10 ABG, PT/INR, D-dimer: PT/INR, D-dimer D-Dimer 271.60 ng/mlDDU (0-234) H 05/15/21 14:10 Abnormal lab findings: Abnormal Labs 05/13/21 05/13/21 05/13/21 11:24 11:24 11:24 WBC 4.1 L RBC 5.30 H Hgb 15.4 H Hct 46.6 H Plt Count Lymph % (Auto) 8.1 L [place] % (Auto) 10.4 H Lymph # (Auto) 0.3 L Seg Neutrophils % 81.0 H D-Dimer 314.43 H Carbon Dioxide Creatinine Glucose 121 H POC Glucose Hemoglobin A1c Lactic Acid Ferritin AST 54 H Lactate Dehydrogenase C-Reactive Protein Total Protein Urine pH Coronavirus (PCR) 05/13/21 05/13/21 05/13/21 11:24 14:38 15:45 WBC RBC Hgb Hct Plt Count Lymph % (Auto) [place] % (Auto) Lymph # (Auto) Seg Neutrophils % D-Dimer Carbon Dioxide Creatinine Glucose 125 H POC Glucose Hemoglobin A1c Lactic Acid 3.10 H* 2.40 H* Ferritin AST Lactate Dehydrogenase 248 H C-Reactive Protein 7.40 H Total Protein Urine pH Coronavirus (PCR) 05/13/21 05/14/21 05/14/21 Unknown 05:45 05:45 WBC 3.3 L RBC Hgb Hct Plt Count 138 L Lymph % (Auto) 7.8 L [place] % (Auto) Lymph # (Auto) 0.3 L Seg Neutrophils % 86.1 H D-Dimer Carbon Dioxide 21 L Creatinine 0.5 L Glucose 113 H POC Glucose Hemoglobin A1c Lactic Acid Ferritin AST 84 H Lactate Dehydrogenase C-Reactive Protein Total Protein 6.2 L D Urine pH 9.0 H Coronavirus (PCR) 05/14/21 05/14/21 05/14/21 05:45 11:15 Unknown WBC RBC Hgb Hct Plt Count Lymph % (Auto) [place] % (Auto) Lymph # (Auto) Seg Neutrophils % D-Dimer Carbon Dioxide Creatinine Glucose POC Glucose 141 H Hemoglobin A1c 9.8 H Lactic Acid Ferritin AST Lactate Dehydrogenase C-Reactive Protein Total Protein Urine pH Coronavirus (PCR) Positive A 05/15/21 05/15/21 05/15/21 05:24 07:48 12:10 WBC RBC Hgb Hct Plt Count Lymph % (Auto) [place] % (Auto) Lymph # (Auto) Seg Neutrophils % D-Dimer Carbon Dioxide Creatinine 0.6 L Glucose 183 H POC Glucose 187 H 251 H Hemoglobin A1c Lactic Acid Ferritin AST Lactate Dehydrogenase C-Reactive Protein Total Protein Urine pH Coronavirus (PCR) 05/15/21 05/15/21 05/15/21 14:10 14:10 14:10 WBC RBC Hgb Hct Plt Count Lymph % (Auto) [place] % (Auto) Lymph # (Auto) Seg Neutrophils % D-Dimer 271.60 H Carbon Dioxide Creatinine Glucose 327 H POC Glucose Hemoglobin A1c Lactic Acid Ferritin 502.7 H AST Lactate Dehydrogenase 272 H C-Reactive Protein 3.50 H Total Protein Urine pH Coronavirus (PCR) 05/15/21 05/15/21 05/16/21 17:09 21:41 07:28 WBC RBC Hgb Hct Plt Count Lymph % (Auto) [place] % (Auto) Lymph # (Auto) Seg Neutrophils % D-Dimer Carbon Dioxide Creatinine Glucose POC Glucose 166 H 448 H 264 H Hemoglobin A1c Lactic Acid Ferritin AST Lactate Dehydrogenase C-Reactive Protein Total Protein Urine pH Coronavirus (PCR) Chest x-ray: report reviewed, image reviewed Additional Studies: CHEST 1 VIEW 05/16/21 INDICATION / CLINICAL INFORMATION: Shortness of breath, Covid 19. COMPARISON: 05/13/2021 FINDINGS: SUPPORT DEVICES: None. HEART / MEDIASTINUM: No significant abnormality. LUNGS / PLEURA: No significant pulmonary or pleural abnormality. No pneumothorax. Previously noted left lower lung linear density has largely resolved. ADDITIONAL FINDINGS: No significant additional findings. IMPRESSION: 1. No acute findings.
--- NOTE | 2021-05-16 09:08 | XRay Report ---
CHEST 1 VIEW INDICATION / CLINICAL INFORMATION: Shortness of breath, Covid 19. COMPARISON: 05/13/2021 FINDINGS: SUPPORT DEVICES: None. HEART / MEDIASTINUM: No significant abnormality. LUNGS / PLEURA: No significant pulmonary or pleural abnormality. No pneumothorax. Previously noted le ft lower lung linear density has largely resolved. ADDITIONAL FINDINGS: No significant additional findings. IMPRESSION: 1. No acute findings. Signer Name: Madhu Saini MD Signed: 05/16/2021 9:04 AM Workstation Name: [id number]
--- NOTE | 2021-05-16 11:40 | Progress Note ---
Assessment and Plan Cultures: Blood culture no growth so far Urine culture no growth so far A/P: 76-year-old man past medical history diabetes, COPD, colon cancer with resection 1 year previous admitted with COVID-19 #Covid infection: Does appear to be hypoxic, on room air. Can start remdesivir if requiring supplemental oxygen. #Colitis: Likely secondary to the Covid. Does not require antibiotics at this time. Normal calcitonin, normal white count. #Diabetes: tight glycemic control for best outcomes. #COPD #History of colon cancer Recs: -Continue dexamethasone 6 mg daily to complete 10 days. -Obtain q48-72h inflammatory markers - ferritin, Ddimer, CRP, LDH -Anticoagulation per hospital protocol -If patient requires supplemental oxygen can start remdesivir to complete 5 days. Thank you for the consult, we will continue to follow. Aydee Monsivais MD [facility] ([facility]) O: [phone] F: [phone] Subjective Date of service: 05/16/21 Interval history: Afebrile, normal white count. Imaging personally reviewed: Chest x-ray: No acute findings Objective - Exam Narrative Exam: Physical exam deferred to reduce risk of transmission of COVID-19. Please refer to primary team's note. - Constitutional Vitals: Vital Signs Temp Pulse Resp BP Pulse Ox 97.7 F 61 18 134/76 99 05/15/21 17:12 05/15/21 17:12 05/15/21 17:12 05/15/21 17:12 05/15/21 23:00 Temperature -Last 24 Hours Temperature 97.7 F - Labs CBC & Chem 7: 05/15/21 05:24 05/15/21 14:10 Labs: Abnormal lab results 05/15/21 05/15/21 05/15/21 Range/Units 12:10 14:10 14:10 D-Dimer 271.60 H (0-234) ng/mlDDU Glucose 327 H (75-100) mg/dL POC Glucose 251 H (70-105) mg/dL Ferritin (30.0-300.0) ng/mL Lactate Dehydrogenase 272 H (91-180) units/L C-Reactive Protein 3.50 H (0.00-1.30) mg/dL 05/15/21 05/15/21 05/15/21 Range/Units 14:10 17:09 21:41 D-Dimer (0-234) ng/mlDDU Glucose (75-100) mg/dL POC Glucose 166 H 448 H (70-105) mg/dL Ferritin 502.7 H (30.0-300.0) ng/mL Lactate Dehydrogenase (91-180) units/L C-Reactive Protein (0.00-1.30) mg/dL 05/16/21 Range/Units 07:28 D-Dimer (0-234) ng/mlDDU Glucose (75-100) mg/dL POC Glucose 264 H (70-105) mg/dL Ferritin (30.0-300.0) ng/mL Lactate Dehydrogenase (91-180) units/L C-Reactive Protein (0.00-1.30) mg/dL
[2021-05-16] MEDS: ENOXAPARIN 40 MG/0.4 ML INJ SUB-Q SCH (11:56)
[2021-05-16] MEDS: FAMOTIDINE 20 MG TAB PO SCH ×2 (11:57→22:29)
[2021-05-16] MEDS: ASCORBIC ACID 500 MG TAB PO SCH ×2 (11:57→22:30)
[2021-05-16] MEDS: ZINC SULFATE 220 MG CAP PO SCH ×2 (11:57→22:36)
[2021-05-16] MEDS: DEXAMETHASONE 4 MG TAB PO SCH (11:58)
[2021-05-16] MEDS: CHOLECALCIFEROL (VIT D3) 5,000 UNIT TAB PO SCH (11:58)
[2021-05-17] MEDS: INSULIN LISPRO 100 UNIT/ML SUB-Q SCH ×4 (09:15→22:31)
[2021-05-17] MEDS: ENOXAPARIN 40 MG/0.4 ML INJ SUB-Q SCH (10:02)
[2021-05-17] MEDS: FAMOTIDINE 20 MG TAB PO SCH ×2 (10:03→22:31)
[2021-05-17] MEDS: DEXAMETHASONE 4 MG TAB PO SCH (10:03)
[2021-05-17] MEDS: CHOLECALCIFEROL (VIT D3) 5,000 UNIT TAB PO SCH (10:03)
[2021-05-17] MEDS: ASCORBIC ACID 500 MG TAB PO SCH ×2 (10:03→22:30)
[2021-05-17] MEDS: ZINC SULFATE 220 MG CAP PO SCH ×2 (10:03→22:30)
--- NOTE | 2021-05-17 14:25 | Progress Note ---
Assessment and Plan 76-year-old male with history of diabetes, COPD, right eye blindness and s/p colon cancer resection 1 year ago, chronic back pain comes where EMS for cough and fever of 2 to 3 days. Patient also has generalized weakness. Patient had one episode of coughing up blood this morning but is not sure. It was only one episode and was not followed by any wheezing syncope etc. Patient has been using inhalers without significant relief. No hematemesis or melena. No weight loss. Patient is unvaccinated. In the emergency room patient dialysis low-grade fever of 99.9. And patient is also tachycardic with heart rate of 114/min. Patient alert, awake. Resting on 2 litre o2. O2 saturation 99%. No acute respiratory distress. Compaining Hungry. Patient afebrile. No leukocytosis. D Dimer elevated. Patients Angio CT of chest reported No CT evidence for pulmonary embolism. No evidence for thoracic aortic dissection. Linear parenchymal disease is present within the lingula. It is unclear if this is acute or chronic. Favor that this is atelectasis or chronic scarring. Unfortunately, there are no prior imaging studies for comparison. Mild emphysematous change. Patient is on Dexamethasone, Lovenox and famotidine.Finished course of zithromax and ceftriaxone. - Patient Problems (1) COPD exacerbation Current Visit: Yes Status: Acute Plan to address problem: On 2 litre O2. Continue dexamethasone Albuterol nhaler S/C Lovenox Famotidine. Reglan. (2) Gastroenteritis due to COVID-19 virus Current Visit: Yes Status: Acute Plan to address problem: Managment as per primary care and Gastroenterology. (3) Hemoptysis Current Visit: Yes Status: Acute Plan to address problem: No hemoptysis at this time. (4) Hypoxia Current Visit: Yes Status: Acute Plan to address problem: On 1 litres O2. O2 saturation 99%. (5) Pneumonia due to COVID-19 virus Current Visit: Yes Status: Acute Plan to address problem: Patient was on Azithromycin (6) SIRS (systemic inflammatory response syndrome) Current Visit: Yes Status: Acute Plan to address problem: Improving. Patient afebrile No leukocytosis. (7) T2DM (type 2 diabetes mellitus) Current Visit: Yes Status: Chronic Qualifiers: Diabetes mellitus termite inspector insulin use: unspecified [facility] insulin use [facility] Plan to address problem: Management as per primary care. (8) Coronavirus infection Current Visit: Yes Status: Acute Plan to address problem: Management as infectious diseases. Subjective Date of service: 05/17/21 Interval history: 76-year-old male with history of diabetes, COPD, right eye blindness and s/p colon cancer resection 1 year ago, chronic back pain comes where EMS for cough and fever of 2 to 3 days. Patient also has generalized weakness. Patient had one episode of coughing up blood this morning but is not sure. It was only one episode and was not followed by any wheezing syncope etc. Patient has been using inhalers without significant relief. No hematemesis or melena. No weight loss. P atient is unvaccinated. In the emergency room patient dialysis low-grade fever of 99.9. And patient is also tachycardic with heart rate of 114/min. Patients brantley virus PCR is Positive. Patient alert, awake. Resting on 2 litre o2. O2 saturation 99%. No acute respiratory distress. Compaining Hungry. Patient afebrile. No leukocytosis. D Dimer elevated. Patients Angio CT of chest reported No CT evidence for pulmonary embolism. No evidence for thoracic aortic dissection. Linear parenchymal disease is present within the lingula. It is unclear if this is acute or chronic. Favor that this is atelectasis or chronic scarring. Unfortunately, there are no prior imaging studies for comparison. Mild emphysematous change. Patient is on Dexamethasone, Lovenox and famotidine.Finished course of zithromax and ceftriaxone. Objective Vital Signs - 12hr 05/17/21 05/17/21 05:35 08:35 Temperature 97.9 F Pulse Rate 63 Respiratory 20 Rate Blood Pressure 159/83 O2 Sat by Pulse 94 96 Oximetry Constitutional: no acute distress, alert, other (Thin) Eyes: non-icteric ENT: oropharynx dry, other (POOR ORAL DENTITION) Neck: supple, no lymphadenopathy Effort: normal Ascultation: Bilateral: diminished breath sounds Cardiovascular: regular rate and rhythm, other (s1,s2) Gastrointestinal: normoactive bowel sounds, soft, non-tender, non-distended Integumentary: normal Extremities: no cyanosis, no edema, other (DIGITAL CLUBBING) Neurologic: normal mental status, non-focal exam, pupils equal and round, motor strength normal and Psychiatric: mood appropriate, affect normal CBC and BMP: 05/15/21 05:24 05/15/21 14:10 ABG, PT/INR, D-dimer: ABG ABG pH 7.390 (7.320-7.450) 05/16/21 12:30 POC ABG pCO2 41.1 mmHg (32.0-48.0) 05/16/21 12:30 POC ABG pO2 74.3 mmHg (83-108) L 05/16/21 12:30 POC ABG HCO3 24.3 05/16/21 12:30 ABG O2 Saturation 94.6 (0-100) 05/16/21 12:30 PT/INR, D-dimer D-Dimer 271.60 ng/mlDDU (0-234) H 05/15/21 14:10 Abnormal lab findings: Abnormal Labs 05/13/21 05/13/21 05/13/21 11:24 11:24 11:24 WBC 4.1 L RBC 5.30 H Hgb 15.4 H Hct 46.6 H Plt Count Lymph % (Auto) 8.1 L [place] % (Auto) 10.4 H Lymph # (Auto) 0.3 L Seg Neutrophils % 81.0 H D-Dimer 314.43 H POC ABG pO2 ABG Oxyhemoglobin ABG Sodium ABG Glucose Carbon Dioxide Creatinine Glucose 121 H POC Glucose Hemoglobin A1c Lactic Acid Ferritin AST 54 H Lactate Dehydrogenase C-Reactive Protein Total Protein Arterial Blood Glucose Urine pH Coronavirus (PCR) 05/13/21 05/13/21 05/13/21 11:24 14:38 15:45 WBC RBC Hgb Hct Plt Count Lymph % (Auto) [place] % (Auto) Lymph # (Auto) Seg Neutrophils % D-Dimer POC ABG pO2 ABG Oxyhemoglobin ABG Sodium ABG Glucose Carbon Dioxide Creatinine Glucose 125 H POC Glucose Hemoglobin A1c Lactic Acid 3.10 H* 2.40 H* Ferritin AST Lactate Dehydrogenase 248 H C-Reactive Protein 7.40 H Total Protein Arterial Blood Glucose Urine pH Coronavirus (PCR) 05/13/21 05/14/21 05/14/21 Unknown 05:45 05:45 WBC 3.3 L RBC Hgb Hct Plt Count 138 L Lymph % (Auto) 7.8 L [place] % (Auto) Lymph # (Auto) 0.3 L Seg Neutrophils % 86.1 H D-Dimer POC ABG pO2 ABG Oxyhemoglobin ABG Sodium ABG Glucose Carbon Dioxide 21 L Creatinine 0.5 L Glucose 113 H POC Glucose Hemoglobin A1c Lactic Acid Ferritin AST 84 H Lactate Dehydrogenase C-Reactive Protein Total Protein 6.2 L D Arterial Blood Glucose Urine pH 9.0 H Coronavirus (PCR) 05/14/21 05/14/21 05/14/21 05:45 11:15 Unknown WBC RBC Hgb Hct Plt Count Lymph % (Auto) [place] % (Auto) Lymph # (Auto) Seg Neutrophils % D-Dimer POC ABG pO2 ABG Oxyhemoglobin ABG Sodium ABG Glucose Carbon Dioxide Creatinine Glucose POC Glucose 141 H Hemoglobin A1c 9.8 H Lactic Acid Ferritin AST Lactate Dehydrogenase C-Reactive Protein Total Protein Arterial Blood Glucose Urine pH Coronavirus (PCR) Positive A 05/15/21 05/15/21 05/15/21 05:24 07:48 12:10 WBC RBC Hgb Hct Plt Count Lymph % (Auto) [place] % (Auto) Lymph # (Auto) Seg Neutrophils % D-Dimer POC ABG pO2 ABG Oxyhemoglobin ABG Sodium ABG Glucose Carbon Dioxide Creatinine 0.6 L Glucose 183 H POC Glucose 187 H 251 H Hemoglobin A1c Lactic Acid Ferritin AST Lactate Dehydrogenase C-Reactive Protein Total Protein Arterial Blood Glucose Urine pH Coronavirus (PCR) 05/15/21 05/15/21 05/15/21 14:10 14:10 14:10 WBC RBC Hgb Hct Plt Count Lymph % (Auto) [place] % (Auto) Lymph # (Auto) Seg Neutrophils % D-Dimer 271.60 H POC ABG pO2 ABG Oxyhemoglobin ABG Sodium ABG Glucose Carbon Dioxide Creatinine Glucose 327 H POC Glucose Hemoglobin A1c Lactic Acid Ferritin 502.7 H AST Lactate Dehydrogenase 272 H C-Reactive Protein 3.50 H Total Protein Arterial Blood Glucose Urine pH Coronavirus (PCR) 05/15/21 05/15/21 05/16/21 17:09 21:41 07:28 WBC RBC Hgb Hct Plt Count Lymph % (Auto) [place] % (Auto) Lymph # (Auto) Seg Neutrophils % D-Dimer POC ABG pO2 ABG Oxyhemoglobin ABG Sodium ABG Glucose Carbon Dioxide Creatinine Glucose POC Glucose 166 H 448 H 264 H Hemoglobin A1c Lactic Acid Ferritin AST Lactate Dehydrogenase C-Reactive Protein Total Protein Arterial Blood Glucose Urine pH Coronavirus (PCR) 05/16/21 05/16/21 05/16/21 11:56 12:30 16:37 WBC RBC Hgb Hct Plt Count Lymph % (Auto) [place] % (Auto) Lymph # (Auto) Seg Neutrophils % D-Dimer POC ABG pO2 74.3 L ABG Oxyhemoglobin 93.4 L ABG Sodium 135.8 L ABG Glucose 443 H Carbon Dioxide Creatinine Glucose POC Glucose 405 H 254 H Hemoglobin A1c Lactic Acid Ferritin AST Lactate Dehydrogenase C-Reactive Protein Total Protein Arterial Blood Glucose 443 H Urine pH Coronavirus (PCR) 05/16/21 05/17/21 05/17/21 21:41 09:12 12:58 WBC RBC Hgb Hct Plt Count Lymph % (Auto) [place] % (Auto) Lymph # (Auto) Seg Neutrophils % D-Dimer POC ABG pO2 ABG Oxyhemoglobin ABG Sodium ABG Glucose Carbon Dioxide Creatinine Glucose POC Glucose 241 H 226 H 256 H Hemoglobin A1c Lactic Acid Ferritin AST Lactate Dehydrogenase C-Reactive Protein Total Protein Arterial Blood Glucose Urine pH Coronavirus (PCR)
--- NOTE | 2021-05-17 17:06 | Progress Note ---
Assessment and Plan Cultures: Blood culture no growth so far Urine culture no growth so far A/P: 76-year-old man past medical history diabetes, COPD, colon cancer with resection 1 year previous admitted with COVID-19 #Covid infection: Does appear to be hypoxic, on room air. Can start remdesivir if requiring supplemental oxygen. #Colitis: Likely secondary to the Covid. Does not require antibiotics at this time. Normal procalcitonin, normal white count. #Diabetes: tight glycemic control for best outcomes. #COPD #History of colon cancer Recs: -Continue dexamethasone 6 mg daily to complete 10 days. -Obtain q48-72h inflammatory markers - ferritin, Ddimer, CRP, LDH -Anticoagulation per hospital protocol -If patient requires supplemental oxygen can start remdesivir to complete 5 days. Thank you for the consult, we will continue to follow. Aydee Monsivais MD [facility] ([facility]) O: [phone] F: [phone] Subjective Date of service: 05/17/21 Interval history: Afebrile, normal white count. Objective - Exam Narrative Exam: Physical exam deferred to reduce risk of transmission of COVID-19. Please refer to primary team's note. - Constitutional Vitals: Vital Signs Temp Pulse Resp BP Pulse Ox 97.9 F 63 20 159/83 96 05/17/21 05:35 05/17/21 05:35 05/17/21 05:35 05/17/21 05:35 05/17/21 08:35 Temperature -Last 24 Hours Temperature 97.9 F Temperature 98.2 F - Labs CBC & Chem 7: 05/15/21 05:24 05/15/21 14:10 Labs: Abnormal lab results 05/16/21 05/17/21 05/17/21 Range/Units 21:41 09:12 12:58 POC Glucose 241 H 226 H 256 H (70-105) mg/dL
[2021-05-18] MEDS: INSULIN LISPRO 100 UNIT/ML SUB-Q SCH ×4 (08:43→22:32)
[2021-05-18] MEDS: CHOLECALCIFEROL (VIT D3) 5,000 UNIT TAB PO SCH (09:22)
[2021-05-18] MEDS: ASCORBIC ACID 500 MG TAB PO SCH ×2 (09:22→22:31)
[2021-05-18] MEDS: FAMOTIDINE 20 MG TAB PO SCH ×2 (09:22→22:31)
[2021-05-18] MEDS: DEXAMETHASONE 4 MG TAB PO SCH (09:22)
[2021-05-18] MEDS: ENOXAPARIN 40 MG/0.4 ML INJ SUB-Q SCH (09:22)
[2021-05-18] MEDS: ZINC SULFATE 220 MG CAP PO SCH ×2 (09:22→22:31)
--- NOTE | 2021-05-18 10:16 | Progress Note ---
Assessment and Plan Cultures: Blood culture no growth so far Urine culture no growth so far A/P: 76-year-old man past medical history diabetes, COPD, colon cancer with resection 1 year previous admitted with COVID-19 #Covid infection: Does not appear to be hypoxic. Can start remdesivir if requiring supplemental oxygen. #Colitis: Likely secondary to the Covid. Does not require antibiotics at this time. Normal procalcitonin, normal white count. #Diabetes: tight glycemic control for best outcomes. #COPD #History of colon cancer Recs: -Continue dexamethasone 6 mg daily to complete 10 days. -Obtain q48-72h inflammatory markers - ferritin, Ddimer, CRP, LDH -Anticoagulation per hospital protocol -If patient requires supplemental oxygen can start remdesivir to complete 5 days. Thank you for the consult, we will continue to follow. OK for DC from ID perspective. Aydee Monsivais MD [facility] ([facility]) O: [phone] F: [phone] Subjective Date of service: 05/18/21 Interval history: Afebrile, no acute change. Objective - Exam Narrative Exam: Physical exam deferred to reduce risk of transmission of COVID-19. Please refer to primary team's note. - Constitutional Vitals: Vital Signs Temp Pulse Resp BP Pulse Ox 97.7 F 82 18 156/74 96 05/17/21 21:40 05/17/21 15:00 05/17/21 21:40 05/17/21 21:40 05/17/21 23:00 Temperature -Last 24 Hours Temperature 97.7 F Temperature 98.8 F - Labs CBC & Chem 7: 05/15/21 05:24 05/15/21 14:10 Labs: Abnormal lab results 05/17/21 05/17/21 05/17/21 Range/Units 12:58 17:14 21:52 POC Glucose 256 H 290 H 290 H (70-105) mg/dL 05/18/21 Range/Units 07:45 POC Glucose 224 H (70-105) mg/dL
--- NOTE | 2021-05-18 15:28 | Progress Note ---
Assessment and Plan Hemoptysis COVID-19 Infection Pneumonia COPD SIRS (systemic inflammatory response syndrome) Viral syndrome DM II Colitis - Remdesivir as per ID/Pulmonary developed protocols - continue systemic steroids for oxygen dependent COVID-19 infection empirically - follow repeat COVID tests results - zinc and vitamin C supplementation - Monitor inflammatory markers per facility protocol - ferritin, Ddimer, CRP - therapeutic anticoagulation per system Protocol based on d-dimer and clinical considerations - Continue contact and airborne isolation - continue care as below otherwise; - The hemoptysis was a single episode (On the CTscan, the pulmonary parenchyma findings are not impressive, so for now treat symptoms and monitro for any further episodes of hemoptysis) - If he has further episodes of hemoptysis, he will need bronchoscopy or IR - SCDs for VTE prophylaxis for now - continue to wean supplemental oxygen to keep O2 sats > 92% - bronchodilators (COLLINS & LABA) with pulm hygiene per RT - continue systemic steroids with slow taper - continue inhaled corticosteroids - continue to avoid nephrotoxins, renally dose all medications - continue mobility protocols to prevent pressure ulcers - PT/OT as tolerated - Wound care per RN/WCT - accuchecks with glycemic control per SSI for target blood glucose < 180 mg/dL - home oxygen evaluation at discharge - GI & VTE prophylaxis - Flu & pneumovax per protocol - Pulmonary out patient follow up for PFTs and optimization of respiratory status - continue other care per attending / other consultants - prn analgesia per pain score ... re-evaluate in am & prn Subjective Date of service: 05/18/21 Principal diagnosis: Hemoptysis; COVID-19 Infxn; Pneumonia; COPD; SIRS; DM II Interval history: Patient is seen today for: Hemoptysis; COVID-19 Infxn; Pneumonia; COPD; SIRS; DM II Seen and examined at bedside; 24hour events reviewed; nursing and respiratory care staff consulted; no adverse overnight events reported to me; resting in bed; feels a little better but still anxious about his health; denies N/V /F/C/chest pain Objective Vital Signs - 12hr 05/18/21 05/18/21 10:00 12:10 Temperature 98.2 F Pulse Rate 86 Respiratory 24 Rate Blood Pressure 125/80 O2 Sat by Pulse 98 93 Oximetry Constitutional: no acute distress, alert, other (elderly thin male with milldy increased respiratory efort at rest) Eyes: non-icteric ENT: oropharynx dry, other (POOR ORAL DENTITION) Neck: supple, no lymphadenopathy Effort: mildly labored Ascultation: Bilateral: clear, diminished breath sounds, other (prolonged expiratory phase) Percussion: Bilateral: not dull Cardiovascular: regular rate and rhythm, other (s1,s2) Gastrointestinal: normoactive bowel sounds, soft, non-tender, non-distended Integumentary: normal Extremities: no cyanosis, no edema, pulses normal, other (DIGITAL CLUBBING) Neurologic: normal mental status, non-focal exam, pupils equal and round, motor strength normal and Psychiatric: mood appropriate, anxious CBC and BMP: 05/15/21 05:24 05/15/21 14:10 ABG, PT/INR, D-dimer: ABG ABG pH 7.390 (7.320-7.450) 05/16/21 12:30 POC ABG pCO2 41.1 mmHg (32.0-48.0) 05/16/21 12:30 POC ABG pO2 74.3 mmHg (83-108) L 05/16/21 12:30 POC ABG HCO3 24.3 05/16/21 12:30 ABG O2 Saturation 94.6 (0-100) 05/16/21 12:30 PT/INR, D-dimer D-Dimer 271.60 ng/mlDDU (0-234) H 05/15/21 14:10 Abnormal lab findings: Abnormal Labs 05/13/21 05/13/21 05/13/21 11:24 11:24 11:24 WBC 4.1 L RBC 5.30 H Hgb 15.4 H Hct 46.6 H Plt Count Lymph % (Auto) 8.1 L [place] % (Auto) 10.4 H Lymph # (Auto) 0.3 L Seg Neutrophils % 81.0 H D-Dimer 314.43 H POC ABG pO2 ABG Oxyhemoglobin ABG Sodium ABG Glucose Carbon Dioxide Creatinine Glucose 121 H POC Glucose Hemoglobin A1c Lactic Acid Ferritin AST 54 H Lactate Dehydrogenase C-Reactive Protein Total Protein Arterial Blood Glucose Urine pH Coronavirus (PCR) 05/13/21 05/13/21 05/13/21 11:24 14:38 15:45 WBC RBC Hgb Hct Plt Count Lymph % (Auto) [place] % (Auto) Lymph # (Auto) Seg Neutrophils % D-Dimer POC ABG pO2 ABG Oxyhemoglobin ABG Sodium ABG Glucose Carbon Dioxide Creatinine Glucose 125 H POC Glucose Hemoglobin A1c Lactic Acid 3.10 H* 2.40 H* Ferritin AST Lactate Dehydrogenase 248 H C-Reactive Protein 7.40 H Total Protein Arterial Blood Glucose Urine pH Coronavirus (PCR) 05/13/21 05/14/21 05/14/21 Unknown 05:45 05:45 WBC 3.3 L RBC Hgb Hct Plt Count 138 L Lymph % (Auto) 7.8 L [place] % (Auto) Lymph # (Auto) 0.3 L Seg Neutrophils % 86.1 H D-Dimer POC ABG pO2 ABG Oxyhemoglobin ABG Sodium ABG Glucose Carbon Dioxide 21 L Creatinine 0.5 L Glucose 113 H POC Glucose Hemoglobin A1c Lactic Acid Ferritin AST 84 H Lactate Dehydrogenase C-Reactive Protein Total Protein 6.2 L D Arterial Blood Glucose Urine pH 9.0 H Coronavirus (PCR) 05/14/21 05/14/21 05/14/21 05:45 11:15 Unknown WBC RBC Hgb Hct Plt Count Lymph % (Auto) [place] % (Auto) Lymph # (Auto) Seg Neutrophils % D-Dimer POC ABG pO2 ABG Oxyhemoglobin ABG Sodium ABG Glucose Carbon Dioxide Creatinine Glucose POC Glucose 141 H Hemoglobin A1c 9.8 H Lactic Acid Ferritin AST Lactate Dehydrogenase C-Reactive Protein Total Protein Arterial Blood Glucose Urine pH Coronavirus (PCR) Positive A 05/15/21 05/15/21 05/15/21 05:24 07:48 12:10 WBC RBC Hgb Hct Plt Count Lymph % (Auto) [place] % (Auto) Lymph # (Auto) Seg Neutrophils % D-Dimer POC ABG pO2 ABG Oxyhemoglobin ABG Sodium ABG Glucose Carbon Dioxide Creatinine 0.6 L Glucose 183 H POC Glucose 187 H 251 H Hemoglobin A1c Lactic Acid Ferritin AST Lactate Dehydrogenase C-Reactive Protein Total Protein Arterial Blood Glucose Urine pH Coronavirus (PCR) 05/15/21 05/15/21 05/15/21 14:10 14:10 14:10 WBC RBC Hgb Hct Plt Count Lymph % (Auto) [place] % (Auto) Lymph # (Auto) Seg Neutrophils % D-Dimer 271.60 H POC ABG pO2 ABG Oxyhemoglobin ABG Sodium ABG Glucose Carbon Dioxide Creatinine Glucose 327 H POC Glucose Hemoglobin A1c Lactic Acid Ferritin 502.7 H AST Lactate Dehydrogenase 272 H C-Reactive Protein 3.50 H Total Protein Arterial Blood Glucose Urine pH Coronavirus (PCR) 05/15/21 05/15/21 05/16/21 17:09 21:41 07:28 WBC RBC Hgb Hct Plt Count Lymph % (Auto) [place] % (Auto) Lymph # (Auto) Seg Neutrophils % D-Dimer POC ABG pO2 ABG Oxyhemoglobin ABG Sodium ABG Glucose Carbon Dioxide Creatinine Glucose POC Glucose 166 H 448 H 264 H Hemoglobin A1c Lactic Acid Ferritin AST Lactate Dehydrogenase C-Reactive Protein Total Protein Arterial Blood Glucose Urine pH Coronavirus (PCR) 05/16/21 05/16/21 05/16/21 11:56 12:30 16:37 WBC RBC Hgb Hct Plt Count Lymph % (Auto) [place] % (Auto) Lymph # (Auto) Seg Neutrophils % D-Dimer POC ABG pO2 74.3 L ABG Oxyhemoglobin 93.4 L ABG Sodium 135.8 L ABG Glucose 443 H Carbon Dioxide Creatinine Glucose POC Glucose 405 H 254 H Hemoglobin A1c Lactic Acid Ferritin AST Lactate Dehydrogenase C-Reactive Protein Total Protein Arterial Blood Glucose 443 H Urine pH Coronavirus (PCR) 05/16/21 05/17/21 05/17/21 21:41 09:12 12:58 WBC RBC Hgb Hct Plt Count Lymph % (Auto) [place] % (Auto) Lymph # (Auto) Seg Neutrophils % D-Dimer POC ABG pO2 ABG Oxyhemoglobin ABG Sodium ABG Glucose Carbon Dioxide Creatinine Glucose POC Glucose 241 H 226 H 256 H Hemoglobin A1c Lactic Acid Ferritin AST Lactate Dehydrogenase C-Reactive Protein Total Protein Arterial Blood Glucose Urine pH Coronavirus (PCR) 05/17/21 05/17/21 05/18/21 17:14 21:52 07:45 WBC RBC Hgb Hct Plt Count Lymph % (Auto) [place] % (Auto) Lymph # (Auto) Seg Neutrophils % D-Dimer POC ABG pO2 ABG Oxyhemoglobin ABG Sodium ABG Glucose Carbon Dioxide Creatinine Glucose POC Glucose 290 H 290 H 224 H Hemoglobin A1c Lactic Acid Ferritin AST Lactate Dehydrogenase C-Reactive Protein Total Protein Arterial Blood Glucose Urine pH Coronavirus (PCR) 05/18/21 12:08 WBC RBC Hgb Hct Plt Count Lymph % (Auto) [place] % (Auto) Lymph # (Auto) Seg Neutrophils % D-Dimer POC ABG pO2 ABG Oxyhemoglobin ABG Sodium ABG Glucose Carbon Dioxide Creatinine Glucose POC Glucose 469 H Hemoglobin A1c Lactic Acid Ferritin AST Lactate Dehydrogenase C-Reactive Protein Total Protein Arterial Blood Glucose Urine pH Coronavirus (PCR) Chest x-ray: image reviewed (clear) Allied health notes reviewed: nursing
--- NOTE | 2021-05-18 16:49 | Progress Note ---
Assessment and Plan - Patient Problems (1) SIRS (systemic inflammatory response syndrome) Current Visit: Yes Status: Acute Plan to address problem: Patient has tachycardia elevated lactic acid level and temperature of 99.9 IV fluids for 12 hours (2) Viral syndrome Current Visit: Yes Status: Acute Plan to address problem: Patient to be tested for coronavirus Tylenol 650 mg every 4 constitutional no weight loss or weight gain no fever or chills IV Zithromax and IV Rocephin initiated for doubtful developing pneumonia (3) Hemoptysis Current Visit: Yes Status: Acute Plan to address problem: Not clear whether the history is accurate No cavity or mass on CT of the chest Pulmonary consult requested Bronchoscopy if hemoptysis persists (4) Suspected COVID-19 virus infection Current Visit: Yes Status: Acute Plan to address problem: Coronavirus PCR requested Decadron initiated IV Zithromax and Rocephin initiated (5) Polycythemia due to fall in plasma volume Current Visit: Yes Status: Deleted Plan to address problem: IV fluids for 12 hours (6) COPD exacerbation Current Visit: Yes Status: Acute Plan to address problem: Duo nebs and IV Decadron (7) T2DM (type 2 diabetes mellitus) Current Visit: Yes Status: Chronic Qualifiers: Diabetes mellitus 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 insulin use: unspecified buttermaker insulin use status Plan to address problem: Check hemoglobin A1c Coverage for now (8) Colitis Current Visit: Yes Status: Acute Plan to address problem: Nonspecific No abdominal complaints Patient on clear liquids GI consult regarding advancing diet Patient on IV Rocephin (9) DVT prophylaxis Current Visit: Yes Status: Acute Plan to address problem: On heparin and GI prophylaxis Subjective Date of service: 05/16/21 Principal diagnosis: Hemoptysis; COVID-19 Infxn; Pneumonia; COPD; SIRS; DM II Objective - Constitutional Vitals: Vital Signs - 12hr 05/18/21 05/18/21 10:00 12:10 Temperature 98.2 F Pulse Rate 86 Respiratory 24 Rate Blood Pressure 125/80 O2 Sat by Pulse 98 93 Oximetry - Labs CBC & Chem 7: 05/15/21 05:24 05/15/21 14:10 Labs: Abnormal lab results 05/17/21 05/17/21 05/18/21 Range/Units 17:14 21:52 07:45 POC Glucose 290 H 290 H 224 H (70-105) mg/dL 05/18/21 05/18/21 Range/Units 12:08 16:32 POC Glucose 469 H 403 H (70-105) mg/dL HEART Score - HEART Score EKG: Normal Age: > 65 Risk factors: 1-2 risk factors Troponin: Troponin T < 0.010 ng/mL (0.00-0.029) 05/13/21 14:38 Troponin: < normal limit - Critical Actions Critical Actions: 0-3 pts:0.9-1.7%risk of adverse cardiac event.Candidate for discharge
--- NOTE | 2021-05-18 16:50 | Progress Note ---
Assessment and Plan - Patient Problems (1) SIRS (systemic inflammatory response syndrome) Current Visit: Yes Status: Acute Plan to address problem: Patient has tachycardia elevated lactic acid level and temperature of 99.9 IV fluids for 12 hours (2) Viral syndrome Current Visit: Yes Status: Acute Plan to address problem: Patient to be tested for coronavirus Tylenol 650 mg every 4 constitutional no weight loss or weight gain no fever or chills IV Zithromax and IV Rocephin initiated for doubtful developing pneumonia (3) Hemoptysis Current Visit: Yes Status: Acute Plan to address problem: Not clear whether the history is accurate No cavity or mass on CT of the chest Pulmonary consult requested Bronchoscopy if hemoptysis persists (4) Suspected COVID-19 virus infection Current Visit: Yes Status: Acute Plan to address problem: Coronavirus PCR requested Decadron initiated IV Zithromax and Rocephin initiated (5) Polycythemia due to fall in plasma volume Current Visit: Yes Status: Deleted Plan to address problem: IV fluids for 12 hours (6) COPD exacerbation Current Visit: Yes Status: Acute Plan to address problem: Duo nebs and IV Decadron (7) T2DM (type 2 diabetes mellitus) Current Visit: Yes Status: Chronic 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: 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 Plan to address problem: Check hemoglobin A1c Coverage for now (8) Colitis Current Visit: Yes Status: Acute Plan to address problem: Nonspecific No abdominal complaints Patient on clear liquids GI consult regarding advancing diet Patient on IV Rocephin (9) DVT prophylaxis Current Visit: Yes Status: Acute Subjective Date of service: 05/17/21 Principal diagnosis: Hemoptysis; COVID-19 Infxn; Pneumonia; COPD; SIRS; DM II Objective - Constitutional Vitals: Vital Signs - 12hr 05/18/21 05/18/21 10:00 12:10 Temperature 98.2 F Pulse Rate 86 Respiratory 24 Rate Blood Pressure 125/80 O2 Sat by Pulse 98 93 Oximetry General appearance: Present: no acute distress, well-nourished - EENT Eyes: PERRL, EOM intact ENT: hearing intact, clear oral mucosa Ears: bilateral: normal - Neck Neck: supple, normal ROM - Respiratory Respiratory effort: normal Respiratory: bilateral: CTA - Breasts Breasts: normal - Cardiovascular Rhythm: regular Heart Sounds: Present: S1 & S2. Absent: gallop, rub Extremities: pulses intact, No edema, normal color, Full ROM - Gastrointestinal General gastrointestinal: Present: soft, non-tender, non-distended, normal bowel sounds - Genitourinary Male genitourinary: normal - Integumentary Integumentary: clear, warm, dry - Musculoskeletal Musculoskeletal: 1, strength equal bilaterally - Neurologic Neurologic: moves all extremities - Psychiatric Psychiatric: memory intact, appropriate mood/affect, intact judgment & insight - Labs CBC & Chem 7: 05/15/21 05:24 05/15/21 14:10 Labs: Abnormal lab results 05/17/21 05/17/21 05/18/21 Range/Units 17:14 21:52 07:45 POC Glucose 290 H 290 H 224 H (70-105) mg/dL 05/18/21 05/18/21 Range/Units 12:08 16:32 POC Glucose 469 H 403 H (70-105) mg/dL HEART Score - HEART Score EKG: Normal Age: > 65 Risk factors: 1-2 risk factors Troponin: Troponin T < 0.010 ng/mL (0.00-0.029) 05/13/21 14:38 Troponin: < normal limit - Critical Actions Critical Actions: 0-3 pts:0.9-1.7%risk of adverse cardiac event.Candidate for discharge
--- NOTE | 2021-05-18 16:52 | Progress Note ---
Assessment and Plan - Patient Problems (1) SIRS (systemic inflammatory response syndrome) Current Visit: Yes Status: Acute Plan to address problem: Patient has tachycardia elevated lactic acid level and temperature of 99.9 IV fluids for 12 hours Improved (2) Viral syndrome Current Visit: Yes Status: Acute Plan to address problem: Covid positive On IV Decadron (3) Hemoptysis Current Visit: Yes Status: Acute Plan to address problem: One episode--resolved No cavitary lesion No further work-up (4) Suspected COVID-19 virus infection Current Visit: Yes Status: Acute Plan to address problem: Coronavirus PCR positive Unusual continue IV Decadron On room air today Patient has nasal cannula oxygen at 5 L with not keeping it on Nursing to check his saturations on room air and if normal to be discharged tomorrow (5) Polycythemia due to fall in plasma volume Current Visit: Yes Status: Deleted Plan to address problem: Resolved (6) COPD exacerbation Current Visit: Yes Status: Acute Plan to address problem: Duo nebs and IV Decadron (7) T2DM (type 2 diabetes mellitus) Current Visit: Yes Status: Chronic Qualifiers: Diabetes mellitus 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 insulin 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: 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 insulin use status Plan to address problem: Insulin adjusted (8) Colitis Current Visit: Yes Status: Acute Plan to address problem: Nonspecific No abdominal complaints Patient on clear liquids Advance diet as tolerated (9) DVT prophylaxis Current Visit: Yes Status: Acute Plan to address problem: On heparin and GI prophylaxis Subjective Date of service: 05/18/21 Principal diagnosis: Hemoptysis; COVID-19 Infxn; Pneumonia; COPD; SIRS; DM II Interval history: 76-year-old male with history of diabetes, COPD, right eye blindness and s/p colon cancer resection 1 year ago, chronic back pain comes where EMS for cough and fever of 2 to 3 days. Patient also has generalized weakness. Patient had one episode of coughing up blood this morning but is not sure. It was only one episode and was not followed by any wheezing syncope etc. Patient has been using inhalers without significant relief. No hematemesis or melena. No weight loss. Patient is unvaccinated. In the emergency room patient dialysis low-grade fever of 99.9. And patient is also tachycardic with heart rate of 114/min. 05/18/21 Comfortable on RA Patient is supposed to be on 5 L nasal cannula oxygen During my examination patient was not wearing oxygen and says that he does not wear oxygen. Patient is being supplied with 5 L nasal cannula oxygen but the nasal cannula oxygen is lying somewhere else Asked by nursing to check on his oxygen at room air for the next 24 hours and if normal will discharge tomorrow Objective - Constitutional Vitals: Vital Signs - 12hr 05/18/21 05/18/21 10:00 12:10 Temperature 98.2 F Pulse Rate 86 Respiratory 24 Rate Blood Pressure 125/80 O2 Sat by Pulse 98 93 Oximetry General appearance: Present: no acute distress, well-nourished - EENT Eyes: PERRL, EOM intact ENT: hearing intact, clear oral mucosa Ears: bilateral: normal - Neck Neck: supple, normal ROM - Respiratory Respiratory effort: normal Respiratory: bilateral: CTA - Breasts Breasts: normal - Cardiovascular Heart rate: 78 Rhythm: regular Heart Sounds: Present: S1 & S2. Absent: gallop, rub Extremities: pulses intact, No edema, normal color, Full ROM - Gastrointestinal General gastrointestinal: Present: soft, non-tender, non-distended, normal bowel sounds - Genitourinary Male genitourinary: normal - Integumentary Integumentary: clear, warm, dry - Musculoskeletal Musculoskeletal: 1, strength equal bilaterally - Neurologic Neurologic: moves all extremities - Psychiatric Psychiatric: memory intact, appropriate mood/affect, intact judgment & insight - Allied health notes Allied health notes reviewed: nursing, case management - Labs CBC & Chem 7: 05/15/21 05:24 05/15/21 14:10 Labs: Abnormal lab results 05/17/21 05/17/21 05/18/21 Range/Units 17:14 21:52 07:45 POC Glucose 290 H 290 H 224 H (70-105) mg/dL 05/18/21 05/18/21 Range/Units 12:08 16:32 POC Glucose 469 H 403 H (70-105) mg/dL HEART Score - HEART Score EKG: Normal Age: > 65 Risk factors: 1-2 risk factors Troponin: Troponin T < 0.010 ng/mL (0.00-0.029) 05/13/21 14:38 Troponin: < normal limit - Critical Actions Critical Actions: 0-3 pts:0.9-1.7%risk of adverse cardiac event.Candidate for discharge
[2021-05-18] MEDS: INSULIN NPH/REGULAR 70/30 INJ SUB-Q SCH (18:23)
[2021-05-19] MEDS: INSULIN NPH/REGULAR 70/30 INJ SUB-Q SCH ×2 (08:25→17:26)
[2021-05-19] MEDS: INSULIN LISPRO 100 UNIT/ML SUB-Q SCH ×4 (08:26→21:55)
--- NOTE | 2021-05-19 08:41 | Progress Note ---
Assessment and Plan Assessment and plan: --SIRS (systemic inflammatory response syndrome) Current Visit: Yes Status: Acute Patient has tachycardia elevated lactic acid level and temperature of 99.9 IV fluids for 12 hours Improved --Viral syndrome Current Visit: Yes Status: Acute Covid positive On IV Decadron --Hemoptysis Current Visit: Yes Status: Acute Plan to address problem: One episode--resolved No cavitary lesion No further work-up -- Suspected COVID-19 virus infection Current Visit: Yes Status: Acute Coronavirus PCR positive continue IV Decadron On room air today Patient has nasal cannula oxygen at 5 L with not keeping it on Nursing to check his saturations on room air and if normal to be discharged tomorrow -- Polycythemia due to fall in plasma volume Current Visit: Yes Status: Deleted Plan to address problem: Resolved --COPD exacerbation Current Visit: Yes Status: Acute Duo nebs and IV Decadron --T2DM (type 2 diabetes mellitus) Current Visit: Yes Status: Chronic Insulin adjusted --Colitis Current Visit: Yes Status: Acute Nonspecific No abdominal complaints Patient on clear liquids Advance diet as tolerated --DVT prophylaxis Current Visit: Yes Status: Acute On heparin and GI prophylaxis We will monitor the patient and adjust management as needed Plan of care reviewed with the patient and his nurse History Interval history: Seen and examined the patient at the bedside this morning Strict isolation precautions and PPE protocols followed according to COVID-19 guidelines Patient's blood sugars are uncontrolled probably secondary to steroids Patient complains of generalized body pains Vital signs noted Hospitalist Physical - Constitutional Vitals: Temp Pulse Resp BP Pulse Ox 98.9 F 82 20 161/79 96 05/19/21 04:27 05/18/21 21:20 05/19/21 04:27 05/19/21 04:27 05/18/21 22:00 General appearance: Present: mild distress, well-nourished - EENT Eyes: Present: PERRL, EOM intact - Neck Neck: Present: supple, normal ROM - Respiratory Respiratory effort: normal Respiratory: bilateral: diminished, rhonchi, negative: rales, wheezing - Cardiovascular Rhythm: regular Heart Sounds: Present: S1 & S2 - Extremities Extremities: no ischemia, No edema Extremity abnormal: edema - Abdominal General gastrointestinal: soft, non-tender, non-distended, normal bowel sounds - Integumentary Integumentary: Present: clear, warm - Psychiatric Psychiatric: appropriate mood/affect, cooperative - Neurologic Neurologic: CNII-XII intact, moves all extremities HEART Score - HEART Score EKG: Normal Age: > 65 Risk factors: 1-2 risk factors Troponin: Troponin T < 0.010 ng/mL (0.00-0.029) 05/13/21 14:38 Troponin: < normal limit - Critical Actions Critical Actions: 0-3 pts:0.9-1.7%risk of adverse cardiac event.Candidate for discharge Results - Labs CBC & Chem 7: 05/15/21 05:24 05/15/21 14:10 Labs: Laboratory Last Values WBC 5.5 K/mm3 (4.5-11.0) 05/15/21 05:24 RBC 4.96 M/mm3 (3.65-5.03) 05/15/21 05:24 Hgb 14.5 gm/dl (11.8-15.2) 05/15/21 05:24 Hct 43.6 % (35.5-45.6) 05/15/21 05:24 MCV 88 fl (84-94) 05/15/21 05:24 MCH 29 pg (28-32) 05/15/21 05:24 MCHC 33 % (32-34) 05/15/21 05:24 RDW 13.2 % (13.2-15.2) 05/15/21 05:24 Plt Count 144 K/mm3 (140-440) 05/15/21 05:24 Lymph % (Auto) 7.8 % (13.4-35.0) L 05/14/21 05:45 Bertie % (Auto) 6.0 % (0.0-7.3) 05/14/21 05:45 Eos % (Auto) 0.0 % (0.0-4.3) 05/14/21 05:45 Baso % (Auto) 0.1 % (0.0-1.8) 05/14/21 05:45 Lymph # (Auto) 0.3 K/mm3 (1.2-5.4) L 05/14/21 05:45 Bertie # (Auto) 0.2 K/mm3 (0.0-0.8) 05/14/21 05:45 Eos # (Auto) 0.0 K/mm3 (0.0-0.4) 05/14/21 05:45 Baso # (Auto) 0.0 K/mm3 (0.0-0.1) 05/14/21 05:45 Seg Neutrophils % 86.1 % (40.0-70.0) H 05/14/21 05:45 Seg Neutrophils # 2.8 K/mm3 (1.8-7.7) 05/14/21 05:45 D-Dimer 271.60 ng/mlDDU (0-234) H 05/15/21 14:10 ABG pH 7.390 (7.320-7.450) 05/16/21 12:30 POC ABG pCO2 41.1 mmHg (32.0-48.0) 05/16/21 12:30 POC ABG pO2 74.3 mmHg (83-108) L 05/16/21 12:30 POC ABG HCO3 24.3 05/16/21 12:30 ABG O2 Saturation 94.6 (0-100) 05/16/21 12:30 POC ABG Base Excess -0.6 05/16/21 12:30 ABG Hemoglobin 15.5 (12.0-17.5) 05/16/21 12:30 ABG Oxyhemoglobin 93.4 (94-98) L 05/16/21 12:30 ABG Methemoglobin 0.3 (0.0-1.5) 05/16/21 12:30 ABG Sodium 135.8 mmol/L (136.0-145.0) L 05/16/21 12:30 ABG Potassium 4.0 mmol/L (3.40-4.50) 05/16/21 12:30 ABG Chloride 100.0 mmol/L (98-107) 05/16/21 12:30 ABG Glucose 443 mg/dL (65-95) H 05/16/21 12:30 Carboxyhemoglobin 1.0 (0.5-1.5) 05/16/21 12:30 FiO2 % 28.0 05/16/21 12:30 Sodium 141 mmol/L (137-145) 05/15/21 05:24 Potassium 4.7 mmol/L (3.6-5.0) 05/15/21 05:24 Chloride 102.8 mmol/L (98-107) 05/15/21 05:24 Carbon Dioxide 25 mmol/L (22-30) 05/15/21 05:24 Anion Gap 18 mmol/L 05/15/21 05:24 BUN 20 mg/dL (9-20) 05/15/21 05:24 Creatinine 0.6 mg/dL (0.8-1.3) L 05/15/21 05:24 Estimated GFR > 60 ml/min 05/15/21 05:24 BUN/Creatinine Ratio 33 % 05/15/21 05:24 Glucose 327 mg/dL (75-100) H 05/15/21 14:10 POC Glucose 238 mg/dL (70-105) H 05/19/21 07:44 Hemoglobin A1c 9.8 % (4-6) H 05/14/21 05:45 Lactic Acid 2.40 mmol/L (0.7-2.0) H* 05/13/21 15:45 Calcium 8.8 mg/dL (8.4-10.2) 05/15/21 05:24 Ferritin 502.7 ng/mL (30.0-300.0) H 05/15/21 14:10 Total Bilirubin 0.40 mg/dL (0.1-1.2) 05/14/21 05:45 AST 84 units/L (5-40) H 05/14/21 05:45 ALT 53 units/L (7-56) 05/14/21 05:45 Alkaline Phosphatase 55 units/L (35-129) 05/14/21 05:45 Lactate Dehydrogenase 272 units/L (91-180) H 05/15/21 14:10 Troponin T < 0.010 ng/mL (0.00-0.029) 05/13/21 14:38 C-Reactive Protein 3.50 mg/dL (0.00-1.30) H 05/15/21 14:10 Total Protein 6.2 g/dL (6.3-8.2) L D 05/14/21 05:45 Albumin 3.9 g/dL (3.9-5) 05/14/21 05:45 Albumin/Globulin Ratio 1.7 % 05/14/21 05:45 Procalcitonin 0.08 ng/mL (<0.15) 05/15/21 14:10 Arterial Blood Glucose 443 mg/dL (65-95) H 05/16/21 12:30 Arterial Blood Ionized Calcium 4.7 mg/dL (4.6-5.3) 05/16/21 12:30 Urine Color Yellow (Yellow) 05/13/21 Unknown Urine Turbidity Clear (Clear) 05/13/21 Unknown Urine pH 9.0 (5.0-7.0) H 05/13/21 Unknown Ur Specific [place] 1.012 (1.003-1.030) 05/13/21 Unknown Urine Protein <15 mg/dl mg/dL (Negative) 05/13/21 Unknown Urine Glucose (UA) Neg mg/dL (Negative) 05/13/21 Unknown Urine Ketones Neg mg/dL (Negative) 05/13/21 Unknown Urine Blood Neg (Negative) 05/13/21 Unknown Urine Nitrite Neg (Negative) 05/13/21 Unknown Urine Bilirubin Neg (Negative) 05/13/21 Unknown Urine Urobilinogen < 2.0 mg/dL (<2.0) 05/13/21 Unknown Ur Leukocyte Esterase Neg (Negative) 05/13/21 Unknown Urine WBC (Auto) 1.0 /HPF (0.0-6.0) 05/13/21 Unknown Urine RBC (Auto) < 1.0 /HPF (0.0-6.0) 05/13/21 Unknown Urine Bacteria (Auto) 1+ /HPF (Negative) 05/13/21 Unknown Coronavirus (PCR) Positive (Negative) A 05/14/21 Unknown Microbiology: Microbiology 05/13/21 11:24 Peripheral/Venous Blood Culture - Final NO GROWTH AFTER 5 DAYS 05/13/21 11:24 Peripheral/Venous Blood Culture - Final NO GROWTH AFTER 5 DAYS Quan/IV: Voiding Method Urinal Active Medications - Current Medications Current Medications: Generic Name Dose Route Start Last Admin Trade Name Freq PRN Reason Stop Dose Admin Acetaminophen 650 mg 05/13/21 23:07 Acetaminophen 325 Mg Tab PO Q4H PRN Pain MILD(1-3)/Fever >100.5/MARTINEZ Albuterol 2.5 mg 05/14/21 10:58 Albuterol 2.5 Mg/3 Ml Nebu IH Q4H PRN Wheezing Ascorbic Acid 1,000 mg 05/13/21 23:45 05/18/21 22:31 Ascorbic Acid 500 Mg Tab PO 1,000 mg BID SARIAH Administration Cholecalciferol 5,000 unit 05/14/21 10:00 05/18/21 09:22 Cholecalciferol (Vit D3) 5,000 Unit Tab PO 5,000 unit DAILY SARIAH Administration Dexamethasone 6 mg 05/16/21 10:00 05/18/21 09:22 Dexamethasone 4 Mg Tab PO 05/22/21 12:00 6 mg DAILY SARIAH Administration Dextrose 50 ml 05/15/21 10:22 Dextrose 50% In Water (25gm) 50 Ml Syringe IV Q30MIN PRN Hypoglycemia Protocol Enoxaparin Sodium 40 mg 05/14/21 10:00 05/18/21 09:22 Enoxaparin 40 Mg/0.4 Ml Inj SUB-Q 40 mg QDAY SARIAH Administration Famotidine 20 mg 05/14/21 10:00 05/18/21 22:31 Famotidine 20 Mg Tab PO 20 mg BID SARIAH Administration Hydromorphone HCl 0.5 mg 05/13/21 23:07 Hydromorphone 1 Mg/1 Ml Inj IV Q3H PRN Pain , Severe (7-10) Insulin Human Isoph/Insulin Regular 15 unit 05/18/21 18:00 05/19/21 08:25 Insulin Nph/Regular 70/30 Inj SUB-Q 15 unit BIDDIAB SARIAH Administration Insulin Human Lispro 0 unit 05/15/21 11:30 05/19/21 08:26 Insulin Lispro 100 Unit/Ml SUB-Q 3 unit AC SARIAH Administration Protocol Insulin Human Lispro 0 unit 05/15/21 22:00 05/18/21 22:32 Insulin Lispro 100 Unit/Ml SUB-Q 6 unit QHS SARIAH Administration Protocol Metoclopramide HCl 10 mg 05/13/21 23:07 Metoclopramide 10 Mg/2 Ml Inj IV Q6H PRN Nausea And Vomiting Ondansetron HCl 4 mg 05/13/21 23:07 Ondansetron 4 Mg/2 Ml Inj IV Q8H PRN Nausea And Vomiting Oxycodone/Acetaminophen 1 tab 05/13/21 23:07 Oxycodone /Acetaminophen 5-325mg Tab PO Q6H PRN Pain, Moderate (4-6) Sodium Chloride 10 ml 05/14/21 10:00 05/18/21 22:32 Sodium Chloride 0.9% 10 Ml Flush Syringe IV 10 ml BID SARIAH Administration Sodium Chloride 10 ml 05/13/21 23:07 Sodium Chloride 0.9% 10 Ml Flush Syringe IV PRN PRN LINE FLUSH Zinc Sulfate 220 mg 05/13/21 23:45 05/18/21 22:31 Zinc Sulfate 220 Mg Cap PO 220 mg BID SARIAH Administration Nutrition/Malnutrition Assess - Dietary Evaluation Nutrition/Malnutrition Findings: Nutrition Notes Start: 05/15/21 09:56 Freq: Status: Active Protocol: Document 05/17/21 16:48 [facility] (Rec: 05/17/21 16:51 NHALL [id number]) Nutrition Notes Initial or Follow up Brief Note Current Diet Cl liq + Ensure Clear BID Labs/Tests POC Glu range: 226-405 Subjective/Other Information Pt has consumed 92% of meals since last assessment. BS elevated. Nutrition Intervention Change Diet Order: Add Consistent CHO modifer to diet order Follow-Up By: 05/19/21 Additional Comments F/U: diet advancement, BG labs
[2021-05-19] MEDS: DEXAMETHASONE 4 MG TAB PO SCH (09:28)
[2021-05-19] MEDS: ENOXAPARIN 40 MG/0.4 ML INJ SUB-Q SCH (09:28)
[2021-05-19] MEDS: ASCORBIC ACID 500 MG TAB PO SCH ×2 (09:28→21:55)
[2021-05-19] MEDS: FAMOTIDINE 20 MG TAB PO SCH ×2 (09:29→21:55)
[2021-05-19] MEDS: CHOLECALCIFEROL (VIT D3) 5,000 UNIT TAB PO SCH (09:29)
[2021-05-19] MEDS: ZINC SULFATE 220 MG CAP PO SCH ×2 (09:29→21:55)
--- NOTE | 2021-05-19 14:12 | Progress Note ---
Assessment and Plan Hemoptysis COVID-19 Infection Pneumonia COPD SIRS (systemic inflammatory response syndrome) Viral syndrome DM II Colitis - Remdesivir as per ID/Pulmonary developed protocols - continue systemic steroids for oxygen dependent COVID-19 infection empirically - follow repeat COVID tests results - zinc and vitamin C supplementation - Monitor inflammatory markers per facility protocol - ferritin, Ddimer, CRP - therapeutic anticoagulation per system Protocol based on d-dimer and clinical considerations - Continue contact and airborne isolation - continue care as below otherwise; - The hemoptysis was a single episode (On the CTscan, the pulmonary parenchyma findings are not impressive, so for now treat symptoms and monitro for any further episodes of hemoptysis) - If he has further episodes of hemoptysis, he will need bronchoscopy or IR - SCDs for VTE prophylaxis for now - continue to wean supplemental oxygen to keep O2 sats > 92% - bronchodilators (COLLINS & LABA) with pulm hygiene per RT - continue systemic steroids with slow taper - continue inhaled corticosteroids - continue to avoid nephrotoxins, renally dose all medications - continue mobility protocols to prevent pressure ulcers - PT/OT as tolerated - Wound care per RN/WCT - accuchecks with glycemic control per SSI for target blood glucose < 180 mg/dL - home oxygen evaluation at discharge - GI & VTE prophylaxis - Flu & pneumovax per protocol - Pulmonary out patient follow up for PFTs and optimization of respiratory status - continue other care per attending / other consultants - prn analgesia per pain score ... re-evaluate in am & prn Subjective Date of service: 05/19/21 Principal diagnosis: Hemoptysis; COVID-19 Infxn; Pneumonia; COPD; SIRS; DM II Interval history: Patient is seen today for: Hemoptysis; COVID-19 Infxn; Pneumonia; COPD; SIRS; DM II Seen and examined at bedside; 24hour events reviewed; nursing and respiratory care staff consulted; no adverse overnight events reported to me; resting in bed; Objective Vital Signs - 12hr 05/19/21 04:27 Temperature 98.9 F Respiratory 20 Rate Blood Pressure 161/79 Constitutional: no acute distress, alert, other (elderly thin male with milldy increased respiratory efort at rest) Eyes: non-icteric ENT: oropharynx dry, other (POOR ORAL DENTITION) Neck: supple, no lymphadenopathy Effort: mildly labored Ascultation: Bilateral: clear, diminished breath sounds, other (prolonged expiratory phase) Percussion: Bilateral: not dull Cardiovascular: regular rate and rhythm, other (s1,s2) Gastrointestinal: normoactive bowel sounds, soft, non-tender, non-distended Integumentary: normal Extremities: no cyanosis, no edema, pulses normal, other (DIGITAL CLUBBING) Neurologic: normal mental status, non-focal exam, pupils equal and round, motor strength normal and Psychiatric: mood appropriate, anxious CBC and BMP: 05/15/21 05:24 05/15/21 14:10 ABG, PT/INR, D-dimer: ABG ABG pH 7.390 (7.320-7.450) 05/16/21 12:30 POC ABG pCO2 41.1 mmHg (32.0-48.0) 05/16/21 12:30 POC ABG pO2 74.3 mmHg (83-108) L 05/16/21 12:30 POC ABG HCO3 24.3 05/16/21 12:30 ABG O2 Saturation 94.6 (0-100) 05/16/21 12:30 PT/INR, D-dimer D-Dimer 271.60 ng/mlDDU (0-234) H 05/15/21 14:10 Abnormal lab findings: Abnormal Labs 05/13/21 05/13/21 05/13/21 11:24 11:24 11:24 WBC 4.1 L RBC 5.30 H Hgb 15.4 H Hct 46.6 H Plt Count Lymph % (Auto) 8.1 L [place] % (Auto) 10.4 H Lymph # (Auto) 0.3 L Seg Neutrophils % 81.0 H D-Dimer 314.43 H POC ABG pO2 ABG Oxyhemoglobin ABG Sodium ABG Glucose Carbon Dioxide Creatinine Glucose 121 H POC Glucose Hemoglobin A1c Lactic Acid Ferritin AST 54 H Lactate Dehydrogenase C-Reactive Protein Total Protein Arterial Blood Glucose Urine pH Coronavirus (PCR) 05/13/21 05/13/21 05/13/21 11:24 14:38 15:45 WBC RBC Hgb Hct Plt Count Lymph % (Auto) [place] % (Auto) Lymph # (Auto) Seg Neutrophils % D-Dimer POC ABG pO2 ABG Oxyhemoglobin ABG Sodium ABG Glucose Carbon Dioxide Creatinine Glucose 125 H POC Glucose Hemoglobin A1c Lactic Acid 3.10 H* 2.40 H* Ferritin AST Lactate Dehydrogenase 248 H C-Reactive Protein 7.40 H Total Protein Arterial Blood Glucose Urine pH Coronavirus (PCR) 05/13/21 05/14/21 05/14/21 Unknown 05:45 05:45 WBC 3.3 L RBC Hgb Hct Plt Count 138 L Lymph % (Auto) 7.8 L [place] % (Auto) Lymph # (Auto) 0.3 L Seg Neutrophils % 86.1 H D-Dimer POC ABG pO2 ABG Oxyhemoglobin ABG Sodium ABG Glucose Carbon Dioxide 21 L Creatinine 0.5 L Glucose 113 H POC Glucose Hemoglobin A1c Lactic Acid Ferritin AST 84 H Lactate Dehydrogenase C-Reactive Protein Total Protein 6.2 L D Arterial Blood Glucose Urine pH 9.0 H Coronavirus (PCR) 05/14/21 05/14/21 05/14/21 05:45 11:15 Unknown WBC RBC Hgb Hct Plt Count Lymph % (Auto) [place] % (Auto) Lymph # (Auto) Seg Neutrophils % D-Dimer POC ABG pO2 ABG Oxyhemoglobin ABG Sodium ABG Glucose Carbon Dioxide Creatinine Glucose POC Glucose 141 H Hemoglobin A1c 9.8 H Lactic Acid Ferritin AST Lactate Dehydrogenase C-Reactive Protein Total Protein Arterial Blood Glucose Urine pH Coronavirus (PCR) Positive A 05/15/21 05/15/21 05/15/21 05:24 07:48 12:10 WBC RBC Hgb Hct Plt Count Lymph % (Auto) [place] % (Auto) Lymph # (Auto) Seg Neutrophils % D-Dimer POC ABG pO2 ABG Oxyhemoglobin ABG Sodium ABG Glucose Carbon Dioxide Creatinine 0.6 L Glucose 183 H POC Glucose 187 H 251 H Hemoglobin A1c Lactic Acid Ferritin AST Lactate Dehydrogenase C-Reactive Protein Total Protein Arterial Blood Glucose Urine pH Coronavirus (PCR) 05/15/21 05/15/21 05/15/21 14:10 14:10 14:10 WBC RBC Hgb Hct Plt Count Lymph % (Auto) [place] % (Auto) Lymph # (Auto) Seg Neutrophils % D-Dimer 271.60 H POC ABG pO2 ABG Oxyhemoglobin ABG Sodium ABG Glucose Carbon Dioxide Creatinine Glucose 327 H POC Glucose Hemoglobin A1c Lactic Acid Ferritin 502.7 H AST Lactate Dehydrogenase 272 H C-Reactive Protein 3.50 H Total Protein Arterial Blood Glucose Urine pH Coronavirus (PCR) 05/15/21 05/15/21 05/16/21 17:09 21:41 07:28 WBC RBC Hgb Hct Plt Count Lymph % (Auto) [place] % (Auto) Lymph # (Auto) Seg Neutrophils % D-Dimer POC ABG pO2 ABG Oxyhemoglobin ABG Sodium ABG Glucose Carbon Dioxide Creatinine Glucose POC Glucose 166 H 448 H 264 H Hemoglobin A1c Lactic Acid Ferritin AST Lactate Dehydrogenase C-Reactive Protein Total Protein Arterial Blood Glucose Urine pH Coronavirus (PCR) 05/16/21 05/16/21 05/16/21 11:56 12:30 16:37 WBC RBC Hgb Hct Plt Count Lymph % (Auto) [place] % (Auto) Lymph # (Auto) Seg Neutrophils % D-Dimer POC ABG pO2 74.3 L ABG Oxyhemoglobin 93.4 L ABG Sodium 135.8 L ABG Glucose 443 H Carbon Dioxide Creatinine Glucose POC Glucose 405 H 254 H Hemoglobin A1c Lactic Acid Ferritin AST Lactate Dehydrogenase C-Reactive Protein Total Protein Arterial Blood Glucose 443 H Urine pH Coronavirus (PCR) 05/16/21 05/17/21 05/17/21 21:41 09:12 12:58 WBC RBC Hgb Hct Plt Count Lymph % (Auto) [place] % (Auto) Lymph # (Auto) Seg Neutrophils % D-Dimer POC ABG pO2 ABG Oxyhemoglobin ABG Sodium ABG Glucose Carbon Dioxide Creatinine Glucose POC Glucose 241 H 226 H 256 H Hemoglobin A1c Lactic Acid Ferritin AST Lactate Dehydrogenase C-Reactive Protein Total Protein Arterial Blood Glucose Urine pH Coronavirus (PCR) 05/17/21 05/17/21 05/18/21 17:14 21:52 07:45 WBC RBC Hgb Hct Plt Count Lymph % (Auto) [place] % (Auto) Lymph # (Auto) Seg Neutrophils % D-Dimer POC ABG pO2 ABG Oxyhemoglobin ABG Sodium ABG Glucose Carbon Dioxide Creatinine Glucose POC Glucose 290 H 290 H 224 H Hemoglobin A1c Lactic Acid Ferritin AST Lactate Dehydrogenase C-Reactive Protein Total Protein Arterial Blood Glucose Urine pH Coronavirus (PCR) 05/18/21 05/18/21 05/18/21 12:08 16:32 17:40 WBC RBC Hgb Hct Plt Count Lymph % (Auto) [place] % (Auto) Lymph # (Auto) Seg Neutrophils % D-Dimer POC ABG pO2 ABG Oxyhemoglobin ABG Sodium ABG Glucose Carbon Dioxide Creatinine Glucose POC Glucose 469 H 403 H 391 H Hemoglobin A1c Lactic Acid Ferritin AST Lactate Dehydrogenase C-Reactive Protein Total Protein Arterial Blood Glucose Urine pH Coronavirus (PCR) 05/18/21 05/19/21 05/19/21 21:18 07:44 10:40 WBC RBC Hgb Hct Plt Count Lymph % (Auto) [place] % (Auto) Lymph # (Auto) Seg Neutrophils % D-Dimer POC ABG pO2 ABG Oxyhemoglobin ABG Sodium ABG Glucose Carbon Dioxide Creatinine Glucose POC Glucose 316 H 238 H 257 H Hemoglobin A1c Lactic Acid Ferritin AST Lactate Dehydrogenase C-Reactive Protein Total Protein Arterial Blood Glucose Urine pH Coronavirus (PCR) Allied health notes reviewed: nursing
--- NOTE | 2021-05-19 15:34 | Progress Note ---
Assessment and Plan Cultures: Blood culture no growth so far Urine culture no growth so far A/P: 76-year-old man past medical history diabetes, COPD, colon cancer with resection 1 year previous admitted with COVID-19 #Covid infection: Does not appear to be hypoxic. Can start remdesivir if requiring supplemental oxygen. #Colitis: Likely secondary to the Covid. Does not require antibiotics at this time. Normal procalcitonin, normal white count. #Diabetes: tight glycemic control for best outcomes. #COPD #History of colon cancer Recs: -Continue dexamethasone 6 mg daily to complete 10 days. -Obtain q48-72h inflammatory markers - ferritin, Ddimer, CRP, LDH -Anticoagulation per hospital protocol -If patient requires supplemental oxygen can start remdesivir to complete 5 days. Thank you for the consult, we sign off. Please call with questions.. OK for DC from ID perspective. Aydee Monsivais MD [facility] ([facility]) O: [phone] F: [phone] Subjective Date of service: 05/19/21 Principal diagnosis: Hemoptysis; COVID-19 Infxn; Pneumonia; COPD; SIRS; DM II Interval history: Afebrile, normal white count. Objective - Exam Narrative Exam: Physical exam deferred to reduce risk of transmission of COVID-19. Please refer to primary team's note. - Constitutional Vitals: Vital Signs Temp Pulse Resp BP Pulse Ox 98.4 F 96 H 20 119/85 93 05/19/21 10:37 05/19/21 10:38 05/19/21 10:37 05/19/21 10:37 05/19/21 15:00 Temperature -Last 24 Hours Temperature 98.4 F Temperature 98.9 F Temperature 98.5 F - Labs CBC & Chem 7: 05/15/21 05:24 05/15/21 14:10 Labs: Abnormal lab results 05/18/21 05/18/21 05/18/21 Range/Units 16:32 17:40 21:18 POC Glucose 403 H 391 H 316 H (70-105) mg/dL 05/19/21 05/19/21 Range/Units 07:44 10:40 POC Glucose 238 H 257 H (70-105) mg/dL
--- NOTE | 2021-05-20 05:05 | Progress Note ---
Assessment and Plan Hemoptysis h/o COPD SIRS (systemic inflammatory response syndrome) Viral syndrome T2DM (type 2 diabetes mellitus) Colitis COVID [positive -Titrate supplemental oxygen therapy to keep SpO2 89-90% -Continue with airborne and contact isolation -Continue with bronchodilators - Remdesivir as per ID/Pulmonary developed protocols - continue systemic steroids for oxygen dependent COVID-19 infection - Monitor inflammatory markers per facility protocol - ferritin, Ddimer, CRP - anticoagulation per system Protocol based on d-dimer and clinical considerations -Monitor closashvin fro bleeding, hasd an episode of hemoptysis when he was initatilly admistted - Continue contact and airborne isolation - continue to titrate supplemental oxygen to keep SpO2 89-92% - continue to avoid nephrotoxins, fluid restrictive strategies - PT/OT as tolerated - accuchecks with glycemic control per SSI for target blood glucose < 180 mg/dL - home oxygen evaluation at discharge - Flu & pneumovax per protocol - Pulmonary out patient follow up for PFTs and optimization of respiratory status - continue other care per attending / other consultants - prn analgesia per pain score Subjective Date of service: 05/20/21 Principal diagnosis: Hemoptysis; COVID-19 Infxn; Pneumonia; COPD; SIRS; DM II Interval history: Patient is seen today for: Hemoptysis; COVID-19 Infxn; Pneumonia; COPD; SIRS; DM II Seen and examined at bedside; 24hour events reviewed; nursing and respiratory care staff consulted; no adverse overnight events reported to me; resting in bed; feels a little better no further episodes of hemoptysis; denies N/V/F/C/chest pain ; currently on supplemental oxygen Objective Vital Signs - 12hr 05/19/21 05/19/21 05/20/21 21:15 22:00 04:20 Temperature 98.4 F 98.0 F Pulse Rate 80 63 Respiratory 15 20 Rate Blood Pressure 156/83 169/74 O2 Sat by Pulse 93 96 95 Oximetry Constitutional: no acute distress, alert, other (elderly thin male with milldy increased respiratory efort at rest) Eyes: non-icteric ENT: oropharynx dry, other (POOR ORAL DENTITION) Neck: supple, no lymphadenopathy Effort: mildly labored Ascultation: Bilateral: clear, diminished breath sounds, other (prolonged expiratory phase) Percussion: Bilateral: not dull Cardiovascular: regular rate and rhythm, other (s1,s2) Gastrointestinal: normoactive bowel sounds, soft, non-tender, non-distended Integumentary: normal Extremities: no cyanosis, no edema, pulses normal, other (DIGITAL CLUBBING) Neurologic: normal mental status, non-focal exam, pupils equal and round, motor strength normal and Psychiatric: mood appropriate, anxious CBC and BMP: 05/15/21 05:24 05/23/21 06:02 ABG, PT/INR, D-dimer: ABG ABG pH 7.390 (7.320-7.450) 05/16/21 12:30 POC ABG pCO2 41.1 mmHg (32.0-48.0) 05/16/21 12:30 POC ABG pO2 74.3 mmHg (83-108) L 05/16/21 12:30 POC ABG HCO3 24.3 05/16/21 12:30 ABG O2 Saturation 94.6 (0-100) 05/16/21 12:30 PT/INR, D-dimer D-Dimer 271.60 ng/mlDDU (0-234) H 05/15/21 14:10 Abnormal lab findings: Abnormal Labs 05/13/21 05/13/21 05/13/21 11:24 11:24 11:24 WBC 4.1 L RBC 5.30 H Hgb 15.4 H Hct 46.6 H Plt Count Lymph % (Auto) 8.1 L [place] % (Auto) 10.4 H Lymph # (Auto) 0.3 L Seg Neutrophils % 81.0 H D-Dimer 314.43 H POC ABG pO2 ABG Oxyhemoglobin ABG Sodium ABG Glucose Carbon Dioxide Creatinine Glucose 121 H POC Glucose Hemoglobin A1c Lactic Acid Ferritin AST 54 H Lactate Dehydrogenase C-Reactive Protein Total Protein Arterial Blood Glucose Urine pH Coronavirus (PCR) 05/13/21 05/13/21 05/13/21 11:24 14:38 15:45 WBC RBC Hgb Hct Plt Count Lymph % (Auto) [place] % (Auto) Lymph # (Auto) Seg Neutrophils % D-Dimer POC ABG pO2 ABG Oxyhemoglobin ABG Sodium ABG Glucose Carbon Dioxide Creatinine Glucose 125 H POC Glucose Hemoglobin A1c Lactic Acid 3.10 H* 2.40 H* Ferritin AST Lactate Dehydrogenase 248 H C-Reactive Protein 7.40 H Total Protein Arterial Blood Glucose Urine pH Coronavirus (PCR) 05/13/21 05/14/21 05/14/21 Unknown 05:45 05:45 WBC 3.3 L RBC Hgb Hct Plt Count 138 L Lymph % (Auto) 7.8 L [place] % (Auto) Lymph # (Auto) 0.3 L Seg Neutrophils % 86.1 H D-Dimer POC ABG pO2 ABG Oxyhemoglobin ABG Sodium ABG Glucose Carbon Dioxide 21 L Creatinine 0.5 L Glucose 113 H POC Glucose Hemoglobin A1c Lactic Acid Ferritin AST 84 H Lactate Dehydrogenase C-Reactive Protein Total Protein 6.2 L D Arterial Blood Glucose Urine pH 9.0 H Coronavirus (PCR) 05/14/21 05/14/21 05/14/21 05:45 11:15 Unknown WBC RBC Hgb Hct Plt Count Lymph % (Auto) [place] % (Auto) Lymph # (Auto) Seg Neutrophils % D-Dimer POC ABG pO2 ABG Oxyhemoglobin ABG Sodium ABG Glucose Carbon Dioxide Creatinine Glucose POC Glucose 141 H Hemoglobin A1c 9.8 H Lactic Acid Ferritin AST Lactate Dehydrogenase C-Reactive Protein Total Protein Arterial Blood Glucose Urine pH Coronavirus (PCR) Positive A 05/15/21 05/15/21 05/15/21 05:24 07:48 12:10 WBC RBC Hgb Hct Plt Count Lymph % (Auto) [place] % (Auto) Lymph # (Auto) Seg Neutrophils % D-Dimer POC ABG pO2 ABG Oxyhemoglobin ABG Sodium ABG Glucose Carbon Dioxide Creatinine 0.6 L Glucose 183 H POC Glucose 187 H 251 H Hemoglobin A1c Lactic Acid Ferritin AST Lactate Dehydrogenase C-Reactive Protein Total Protein Arterial Blood Glucose Urine pH Coronavirus (PCR) 05/15/21 05/15/21 05/15/21 14:10 14:10 14:10 WBC RBC Hgb Hct Plt Count Lymph % (Auto) [place] % (Auto) Lymph # (Auto) Seg Neutrophils % D-Dimer 271.60 H POC ABG pO2 ABG Oxyhemoglobin ABG Sodium ABG Glucose Carbon Dioxide Creatinine Glucose 327 H POC Glucose Hemoglobin A1c Lactic Acid Ferritin 502.7 H AST Lactate Dehydrogenase 272 H C-Reactive Protein 3.50 H Total Protein Arterial Blood Glucose Urine pH Coronavirus (PCR) 05/15/21 05/15/21 05/16/21 17:09 21:41 07:28 WBC RBC Hgb Hct Plt Count Lymph % (Auto) [place] % (Auto) Lymph # (Auto) Seg Neutrophils % D-Dimer POC ABG pO2 ABG Oxyhemoglobin ABG Sodium ABG Glucose Carbon Dioxide Creatinine Glucose POC Glucose 166 H 448 H 264 H Hemoglobin A1c Lactic Acid Ferritin AST Lactate Dehydrogenase C-Reactive Protein Total Protein Arterial Blood Glucose Urine pH Coronavirus (PCR) 05/16/21 05/16/21 05/16/21 11:56 12:30 16:37 WBC RBC Hgb Hct Plt Count Lymph % (Auto) [place] % (Auto) Lymph # (Auto) Seg Neutrophils % D-Dimer POC ABG pO2 74.3 L ABG Oxyhemoglobin 93.4 L ABG Sodium 135.8 L ABG Glucose 443 H Carbon Dioxide Creatinine Glucose POC Glucose 405 H 254 H Hemoglobin A1c Lactic Acid Ferritin AST Lactate Dehydrogenase C-Reactive Protein Total Protein Arterial Blood Glucose 443 H Urine pH Coronavirus (PCR) 05/16/21 05/17/21 05/17/21 21:41 09:12 12:58 WBC RBC Hgb Hct Plt Count Lymph % (Auto) [place] % (Auto) Lymph # (Auto) Seg Neutrophils % D-Dimer POC ABG pO2 ABG Oxyhemoglobin ABG Sodium ABG Glucose Carbon Dioxide Creatinine Glucose POC Glucose 241 H 226 H 256 H Hemoglobin A1c Lactic Acid Ferritin AST Lactate Dehydrogenase C-Reactive Protein Total Protein Arterial Blood Glucose Urine pH Coronavirus (PCR) 05/17/21 05/17/21 05/18/21 17:14 21:52 07:45 WBC RBC Hgb Hct Plt Count Lymph % (Auto) [place] % (Auto) Lymph # (Auto) Seg Neutrophils % D-Dimer POC ABG pO2 ABG Oxyhemoglobin ABG Sodium ABG Glucose Carbon Dioxide Creatinine Glucose POC Glucose 290 H 290 H 224 H Hemoglobin A1c Lactic Acid Ferritin AST Lactate Dehydrogenase C-Reactive Protein Total Protein Arterial Blood Glucose Urine pH Coronavirus (PCR) 05/18/21 05/18/21 05/18/21 12:08 16:32 17:40 WBC RBC Hgb Hct Plt Count Lymph % (Auto) [place] % (Auto) Lymph # (Auto) Seg Neutrophils % D-Dimer POC ABG pO2 ABG Oxyhemoglobin ABG Sodium ABG Glucose Carbon Dioxide Creatinine Glucose POC Glucose 469 H 403 H 391 H Hemoglobin A1c Lactic Acid Ferritin AST Lactate Dehydrogenase C-Reactive Protein Total Protein Arterial Blood Glucose Urine pH Coronavirus (PCR) 05/18/21 05/19/21 05/19/21 21:18 07:44 10:40 WBC RBC Hgb Hct Plt Count Lymph % (Auto) [place] % (Auto) Lymph # (Auto) Seg Neutrophils % D-Dimer POC ABG pO2 ABG Oxyhemoglobin ABG Sodium ABG Glucose Carbon Dioxide Creatinine Glucose POC Glucose 316 H 238 H 257 H Hemoglobin A1c Lactic Acid Ferritin AST Lactate Dehydrogenase C-Reactive Protein Total Protein Arterial Blood Glucose Urine pH Coronavirus (PCR) 05/19/21 05/19/21 17:19 21:15 WBC RBC Hgb Hct Plt Count Lymph % (Auto) [place] % (Auto) Lymph # (Auto) Seg Neutrophils % D-Dimer POC ABG pO2 ABG Oxyhemoglobin ABG Sodium ABG Glucose Carbon Dioxide Creatinine Glucose POC Glucose 339 H 340 H Hemoglobin A1c Lactic Acid Ferritin AST Lactate Dehydrogenase C-Reactive Protein Total Protein Arterial Blood Glucose Urine pH Coronavirus (PCR) Allied health notes reviewed: nursing
[2021-05-20] MEDS: INSULIN LISPRO 100 UNIT/ML SUB-Q SCH ×4 (10:06→21:26)
[2021-05-20] MEDS: INSULIN NPH/REGULAR 70/30 INJ SUB-Q SCH ×2 (10:06→17:38)
[2021-05-20] MEDS: FAMOTIDINE 20 MG TAB PO SCH ×2 (10:07→21:20)
[2021-05-20] MEDS: ENOXAPARIN 40 MG/0.4 ML INJ SUB-Q SCH (10:07)
[2021-05-20] MEDS: ZINC SULFATE 220 MG CAP PO SCH ×2 (10:07→21:20)
[2021-05-20] MEDS: CHOLECALCIFEROL (VIT D3) 5,000 UNIT TAB PO SCH (10:07)
[2021-05-20] MEDS: ASCORBIC ACID 500 MG TAB PO SCH ×2 (10:07→21:20)
[2021-05-20] MEDS: DEXAMETHASONE 4 MG TAB PO SCH (10:08)
--- NOTE | 2021-05-20 13:06 | Progress Note ---
Assessment and Plan Assessment and plan: --Positive COVID-19 infection Current Visit: Yes Status: Acute Coronavirus PCR positive, continue IV Decadron Patient was saturating room air initially, however he is requiring supplemental oxygen today Titrate, home O2 evaluation prior to discharge Patient is requiring 2 to 3 L nasal cannula We will start remdesivir per protocol --SIRS (systemic inflammatory response syndrome) Current Visit: Yes Status: Acute Patient has tachycardia elevated lactic acid level and temperature of 99.9 IV fluids for 12 hours --Viral syndrome Current Visit: Yes Status: Acute Covid positive, On IV Decadron and remdesivir --Hemoptysis Current Visit: Yes Status: Acute One episode--resolved -- Polycythemia due to fall in plasma volume Current Visit: Yes Status: Deleted Resolved --COPD exacerbation Current Visit: Yes Status: Acute Duo nebs and IV Decadron --T2DM (type 2 diabetes mellitus) Current Visit: Yes Status: Chronic Insulin adjusted --Colitis Current Visit: Yes Status: Acute Nonspecific No abdominal complaints Patient on clear liquids Advance diet as tolerated --DVT prophylaxis Current Visit: Yes Status: Acute On heparin and GI prophylaxis We will monitor the patient and adjust management as needed Plan of care reviewed with the patient and his nurse 05/20/2021; patient is requiring supplemental oxygen Continue IV Decadron, start remdesivir ID following, home O2 evaluation and set up prior to discharge History Interval history: Seen and examined the patient from a distance in the room Isolation precautions, Covid 19 PPE protocols strictly followed Patient feels slightly better No new complaints,Anxious to go home Patient was saturating room air initially However patient is requiring supplemental oxygen 2 to 3 L today We will start remdesivir per protocol as patient is hypoxic requiring supplemental oxygen Vital signs reviewed Hospitalist Physical - Physical exam Narrative exam: Have seen the patient from a distance in his room - Constitutional Vitals: Temp Pulse Resp BP Pulse Ox 98.0 F 102 H 18 128/83 91 05/20/21 09:23 05/20/21 09:23 05/20/21 09:23 05/20/21 09:23 05/20/21 09:23 General appearance: Present: mild distress, well-nourished, other (Not done to prevent disease transmission) - EENT ENT: other (Not done to prevent disease transmission) - Neck Neck: Present: other (Not done to prevent disease transmission) - Respiratory Respiratory effort: other (Not done to prevent disease transmission) - Extremities Extremity abnormal: other (Not done to prevent disease transmission) - Abdominal General gastrointestinal: other (Not done to prevent disease transmission) - Psychiatric Psychiatric: other (Not done to prevent disease transmission) - Neurologic Neurologic: other (Not done to prevent disease transmission) HEART Score - HEART Score EKG: Normal Age: > 65 Risk factors: 1-2 risk factors Troponin: Troponin T < 0.010 ng/mL (0.00-0.029) 05/13/21 14:38 Troponin: < normal limit - Critical Actions Critical Actions: 0-3 pts:0.9-1.7%risk of adverse cardiac event.Candidate for discharge Results - Labs CBC & Chem 7: 05/15/21 05:24 05/15/21 14:10 Labs: Laboratory Last Values WBC 5.5 K/mm3 (4.5-11.0) 05/15/21 05:24 RBC 4.96 M/mm3 (3.65-5.03) 05/15/21 05:24 Hgb 14.5 gm/dl (11.8-15.2) 05/15/21 05:24 Hct 43.6 % (35.5-45.6) 05/15/21 05:24 MCV 88 fl (84-94) 05/15/21 05:24 MCH 29 pg (28-32) 05/15/21 05:24 MCHC 33 % (32-34) 05/15/21 05:24 RDW 13.2 % (13.2-15.2) 05/15/21 05:24 Plt Count 144 K/mm3 (140-440) 05/15/21 05:24 Lymph % (Auto) 7.8 % (13.4-35.0) L 05/14/21 05:45 [place] % (Auto) 6.0 % (0.0-7.3) 05/14/21 05:45 Eos % (Auto) 0.0 % (0.0-4.3) 05/14/21 05:45 Baso % (Auto) 0.1 % (0.0-1.8) 05/14/21 05:45 Lymph # (Auto) 0.3 K/mm3 (1.2-5.4) L 05/14/21 05:45 [place] # (Auto) 0.2 K/mm3 (0.0-0.8) 05/14/21 05:45 Eos # (Auto) 0.0 K/mm3 (0.0-0.4) 05/14/21 05:45 Baso # (Auto) 0.0 K/mm3 (0.0-0.1) 05/14/21 05:45 Seg Neutrophils % 86.1 % (40.0-70.0) H 05/14/21 05:45 Seg Neutrophils # 2.8 K/mm3 (1.8-7.7) 05/14/21 05:45 D-Dimer 271.60 ng/mlDDU (0-234) H 05/15/21 14:10 ABG pH 7.390 (7.320-7.450) 05/16/21 12:30 POC ABG pCO2 41.1 mmHg (32.0-48.0) 05/16/21 12:30 POC ABG pO2 74.3 mmHg (83-108) L 05/16/21 12:30 POC ABG HCO3 24.3 05/16/21 12:30 ABG O2 Saturation 94.6 (0-100) 05/16/21 12:30 POC ABG Base Excess -0.6 05/16/21 12:30 ABG Hemoglobin 15.5 (12.0-17.5) 05/16/21 12:30 ABG Oxyhemoglobin 93.4 (94-98) L 05/16/21 12:30 ABG Methemoglobin 0.3 (0.0-1.5) 05/16/21 12:30 ABG Sodium 135.8 mmol/L (136.0-145.0) L 05/16/21 12:30 ABG Potassium 4.0 mmol/L (3.40-4.50) 05/16/21 12:30 ABG Chloride 100.0 mmol/L (98-107) 05/16/21 12:30 ABG Glucose 443 mg/dL (65-95) H 05/16/21 12:30 Carboxyhemoglobin 1.0 (0.5-1.5) 05/16/21 12:30 FiO2 % 28.0 05/16/21 12:30 Sodium 141 mmol/L (137-145) 05/15/21 05:24 Potassium 4.7 mmol/L (3.6-5.0) 05/15/21 05:24 Chloride 102.8 mmol/L (98-107) 05/15/21 05:24 Carbon Dioxide 25 mmol/L (22-30) 05/15/21 05:24 Anion Gap 18 mmol/L 05/15/21 05:24 BUN 20 mg/dL (9-20) 05/15/21 05:24 Creatinine 0.6 mg/dL (0.8-1.3) L 05/15/21 05:24 Estimated GFR > 60 ml/min 05/15/21 05:24 BUN/Creatinine Ratio 33 % 05/15/21 05:24 Glucose 327 mg/dL (75-100) H 05/15/21 14:10 POC Glucose 256 mg/dL (70-105) H 05/20/21 11:19 Hemoglobin A1c 9.8 % (4-6) H 05/14/21 05:45 Lactic Acid 2.40 mmol/L (0.7-2.0) H* 05/13/21 15:45 Calcium 8.8 mg/dL (8.4-10.2) 05/15/21 05:24 Ferritin 502.7 ng/mL (30.0-300.0) H 05/15/21 14:10 Total Bilirubin 0.40 mg/dL (0.1-1.2) 05/14/21 05:45 AST 84 units/L (5-40) H 05/14/21 05:45 ALT 53 units/L (7-56) 05/14/21 05:45 Alkaline Phosphatase 55 units/L (35-129) 05/14/21 05:45 Lactate Dehydrogenase 272 units/L (91-180) H 05/15/21 14:10 Troponin T < 0.010 ng/mL (0.00-0.029) 05/13/21 14:38 C-Reactive Protein 3.50 mg/dL (0.00-1.30) H 05/15/21 14:10 Total Protein 6.2 g/dL (6.3-8.2) L D 05/14/21 05:45 Albumin 3.9 g/dL (3.9-5) 05/14/21 05:45 Albumin/Globulin Ratio 1.7 % 05/14/21 05:45 Procalcitonin 0.08 ng/mL (<0.15) 05/15/21 14:10 Arterial Blood Glucose 443 mg/dL (65-95) H 05/16/21 12:30 Arterial Blood Ionized Calcium 4.7 mg/dL (4.6-5.3) 05/16/21 12:30 Urine Color Yellow (Yellow) 05/13/21 Unknown Urine Turbidity Clear (Clear) 05/13/21 Unknown Urine pH 9.0 (5.0-7.0) H 05/13/21 Unknown Ur Specific [place] 1.012 (1.003-1.030) 05/13/21 Unknown Urine Protein <15 mg/dl mg/dL (Negative) 05/13/21 Unknown Urine Glucose (UA) Neg mg/dL (Negative) 05/13/21 Unknown Urine Ketones Neg mg/dL (Negative) 05/13/21 Unknown Urine Blood Neg (Negative) 05/13/21 Unknown Urine Nitrite Neg (Negative) 05/13/21 Unknown Urine Bilirubin Neg (Negative) 05/13/21 Unknown Urine Urobilinogen < 2.0 mg/dL (<2.0) 05/13/21 Unknown Ur Leukocyte Esterase Neg (Negative) 05/13/21 Unknown Urine WBC (Auto) 1.0 /HPF (0.0-6.0) 05/13/21 Unknown Urine RBC (Auto) < 1.0 /HPF (0.0-6.0) 05/13/21 Unknown Urine Bacteria (Auto) 1+ /HPF (Negative) 05/13/21 Unknown Coronavirus (PCR) Positive (Negative) A 05/14/21 Unknown Quan/IV: Voiding Method Urinal Active Medications - Current Medications Current Medications: Generic Name Dose Route Start Last Admin Trade Name Freq PRN Reason Stop Dose Admin Acetaminophen 650 mg 05/13/21 23:07 Acetaminophen 325 Mg Tab PO Q4H PRN Pain MILD(1-3)/Fever >100.5/MARTINEZ Albuterol 2.5 mg 05/14/21 10:58 Albuterol 2.5 Mg/3 Ml Nebu IH Q4H PRN Wheezing Ascorbic Acid 1,000 mg 05/13/21 23:45 05/20/21 10:07 Ascorbic Acid 500 Mg Tab PO 1,000 mg BID SARIAH Administration Cholecalciferol 5,000 unit 05/14/21 10:00 05/20/21 10:07 Cholecalciferol (Vit D3) 5,000 Unit Tab PO 5,000 unit DAILY SARIAH Administration Dexamethasone 6 mg 05/16/21 10:00 05/20/21 10:08 Dexamethasone 4 Mg Tab PO 05/22/21 12:00 6 mg DAILY SARIAH Administration Dextrose 50 ml 05/15/21 10:22 Dextrose 50% In Water (25gm) 50 Ml Syringe IV Q30MIN PRN Hypoglycemia Protocol Enoxaparin Sodium 40 mg 05/14/21 10:00 05/20/21 10:07 Enoxaparin 40 Mg/0.4 Ml Inj SUB-Q 40 mg QDAY SARIAH Administration Famotidine 20 mg 05/14/21 10:00 05/20/21 10:07 Famotidine 20 Mg Tab PO 20 mg BID SARIAH Administration Hydromorphone HCl 0.5 mg 05/13/21 23:07 Hydromorphone 1 Mg/1 Ml Inj IV Q3H PRN Pain , Severe (7-10) Insulin Human Isoph/Insulin Regular 15 unit 05/18/21 18:00 05/20/21 10:06 Insulin Nph/Regular 70/30 Inj SUB-Q 15 unit BIDDIAB SARIAH Administration Insulin Human Lispro 0 unit 05/15/21 11:30 05/20/21 10:06 Insulin Lispro 100 Unit/Ml SUB-Q 6 unit AC SARIAH Administration Protocol Insulin Human Lispro 0 unit 05/15/21 22:00 05/19/21 21:55 Insulin Lispro 100 Unit/Ml SUB-Q 6 unit QHS SARIAH Administration Protocol Metoclopramide HCl 10 mg 05/13/21 23:07 Metoclopramide 10 Mg/2 Ml Inj IV Q6H PRN Nausea And Vomiting Ondansetron HCl 4 mg 05/13/21 23:07 Ondansetron 4 Mg/2 Ml Inj IV Q8H PRN Nausea And Vomiting Oxycodone/Acetaminophen 1 tab 05/13/21 23:07 Oxycodone /Acetaminophen 5-325mg Tab PO Q6H PRN Pain, Moderate (4-6) Sodium Chloride 10 ml 05/14/21 10:00 05/20/21 10:08 Sodium Chloride 0.9% 10 Ml Flush Syringe IV 10 ml BID SARIAH Administration Sodium Chloride 10 ml 05/13/21 23:07 Sodium Chloride 0.9% 10 Ml Flush Syringe IV PRN PRN LINE FLUSH Zinc Sulfate 220 mg 05/13/21 23:45 05/20/21 10:07 Zinc Sulfate 220 Mg Cap PO 220 mg BID SARIAH Administration Nutrition/Malnutrition Assess - Dietary Evaluation Nutrition/Malnutrition Findings: Nutrition Notes Start: 05/15/21 09:56 Freq: Status: Active Protocol: Document 05/19/21 11:58 (Rec: 05/19/21 12:03 [email or web address]) Nutrition Notes Initial or Follow up Reassessment Current Diagnosis COPD,Diabetes Other Pertinent Diagnosis colitis, hx colon cancer, pneu , COVID(+) Current Diet Consistent CHO Labs/Tests POC Glu range: 224-469 Pertinent Medications Decadron Height 5 ft 8 in Weight 69.7 kg [place] Body Weight (kg) 70.00 BMI 23.3 Weight Status Appropriate Subjective/Other Information Pt reports eating well. Pt seems slightly confused. Per chart, pt eating 100% of meals . Pt asked for ONS. Percent of energy/protein needs met: 100%/100% Burn Absent Trauma Absent GI Symptoms Other Current % PO Good (75-100%) Minimum of two criteria No physical signs of malnutrition #1 Nutrition Diagnosis Inadequate energy intake As Evidenced by Signs and Symptoms pt meeting 100% of needs Diagnosis Progress(for reassessment Improved documentation) Is patient on ventilator? No Is Patient Ambulatory and/or Out of Bed Yes REE-([facility]-ambulatory/OOB) [ [id number] [id number]] Calculation Used for Recommendations [facility] Additional Notes Protein: (1-1.2 g/kg) 68-82g Fluid: 1 ml/kcal or per Nutrition Intervention Change Diet Order: continue Add Supplement/Snack (indicate name/kcal Glucerna daily /protein ) Provides kCal: 220 Provides Protein (gm) 10 Goal #1 Meet at least 75% of energy and protein needs via PO and ONS Anticipated Discharge Needs: consistent CHO Follow-Up By: 05/24/21 Additional Comments F/u: stable intakes
[2021-05-20 20:29] LABS: Alanine Aminotransferase 48 units/L (7-56); Albumin 3.1 g/dL (3.9-5); Blood Urea Nitrogen 20 mg/dL (9-20); Calcium 9.1 mg/dL (8.4-10.2); Hemolysis Index 24
[2021-05-20 20:48] LABS: BUN/Creatinine Ratio 33
[2021-05-20] MEDS ORDERED: REMDESIVIR 200 MG in SODIUM CHLORIDE 0.9% 250ML 250 ML IV ONE (21:00)
[2021-05-20] MEDS: SODIUM CHLORIDE 0.9% 50 ML IVPB IV SCH (21:20)
--- NOTE | 2021-05-21 07:33 | Progress Note ---
Assessment and Plan Assessment and plan: 05/18/21 19:37 - Nurse Note by MAME BONILLA 1808: pulse oximetry of 93% on 2LPM at rest. pulse oximetry of 89%on room air at rest. pulse oximetry of 70% on room air with activity. pulse oximetry 91% on 2LPM with activity. --Hypokalemia; Current Visit: Yes Status: Acute Replenished with KCl, monitor electrolytes --Positive COVID-19 infection Current Visit: Yes Status: Acute Coronavirus PCR positive, continue IV Decadron Patient was saturating room air initially, however he is requiring supplemental oxygen today Titrate, home O2 evaluation prior to discharge Patient is requiring 2 to 3 L nasal cannula We will start remdesivir per protocol --Hypoxia; Current Visit: Yes Status: Acute Initially patient was saturating well on room air However patient is requiring 2 L of nasal cannula oxygen now Started remdesivir yesterday, for total 5 days Home O2 evaluation, set up home oxygen at discharge --SIRS (systemic inflammatory response syndrome) Current Visit: Yes Status: Acute Patient has tachycardia elevated lactic acid level and temperature of 99.9 IV fluids for 12 hours --Hemoptysis Current Visit: Yes Status: Acute One episode--resolved -- Polycythemia due to fall in plasma volume Current Visit: Yes Status: Deleted Resolved --COPD exacerbation Current Visit: Yes Status: Acute Duo nebs and IV Decadron --T2DM (type 2 diabetes mellitus) Current Visit: Yes Status: Chronic Insulin adjusted --Mild colitis; on CT abdomen Current Visit: Yes Status: Acute Patient does not have any GI symptoms Tolerating ADA diet Recommend outpatient GI evaluation upon discharge --DVT prophylaxis Current Visit: Yes Status: Acute Subcu Lovenox We will monitor the patient and adjust management as needed Plan of care reviewed with the patient and his nurse 05/20/2021; patient is requiring supplemental oxygen 2 L via NC Continue IV Decadron, start remdesivir ID following, home O2 evaluation and set up prior to discharge 05/21/2021; Hypoxia requiring supplemental oxygen, started remdesivir total 5 days Continue Decadron total 10 days Hypokalemia corrected with KCl History Interval history: I have seen and examined the patient in his room at the bedside this morning Patient's chart and medications reviewed COVID-19 patient, strict isolation precautions PPE recalls followed per COVID-19 guidelines Patient complains of mild shortness of breath Patient was initially saturating well on room air however For the last 1 to 2 days patient has been requiring 2 to 3 L of nasal cannula oxygen Remdesivir started Complains of generalized weakness Vital signs noted Hospitalist Physical - Constitutional Vitals: Temp Pulse Resp BP Pulse Ox 98.2 F 77 18 157/85 92 05/21/21 04:36 05/21/21 04:36 05/21/21 04:36 05/21/21 04:36 05/21/21 04:36 General appearance: Present: mild distress, cachectic, other (Not done to prevent disease transmission) - EENT Eyes: Present: PERRL, EOM intact - Neck Neck: Present: supple, normal ROM - Respiratory Respiratory effort: normal Respiratory: bilateral: diminished, rhonchi, negative: rales, wheezing - Cardiovascular Rhythm: regular Heart Sounds: Present: S1 & S2 - Extremities Extremities: no ischemia, No edema - Abdominal General gastrointestinal: soft, non-tender, non-distended, normal bowel sounds - Integumentary Integumentary: Present: clear, warm - Psychiatric Psychiatric: appropriate mood/affect, cooperative - Neurologic Neurologic: CNII-XII intact, moves all extremities HEART Score - HEART Score EKG: Normal Age: > 65 Risk factors: 1-2 risk factors Troponin: Troponin T < 0.010 ng/mL (0.00-0.029) 05/13/21 14:38 Troponin: < normal limit - Critical Actions Critical Actions: 0-3 pts:0.9-1.7%risk of adverse cardiac event.Candidate for discharge Results - Labs CBC & Chem 7: 05/15/21 05:24 05/21/21 07:04 Labs: Laboratory Last Values WBC 5.5 K/mm3 (4.5-11.0) 05/15/21 05:24 RBC 4.96 M/mm3 (3.65-5.03) 05/15/21 05:24 Hgb 14.5 gm/dl (11.8-15.2) 05/15/21 05:24 Hct 43.6 % (35.5-45.6) 05/15/21 05:24 MCV 88 fl (84-94) 05/15/21 05:24 MCH 29 pg (28-32) 05/15/21 05:24 MCHC 33 % (32-34) 05/15/21 05:24 RDW 13.2 % (13.2-15.2) 05/15/21 05:24 Plt Count 144 K/mm3 (140-440) 05/15/21 05:24 Lymph % (Auto) 7.8 % (13.4-35.0) L 05/14/21 05:45 [place] % (Auto) 6.0 % (0.0-7.3) 05/14/21 05:45 Eos % (Auto) 0.0 % (0.0-4.3) 05/14/21 05:45 Baso % (Auto) 0.1 % (0.0-1.8) 05/14/21 05:45 Lymph # (Auto) 0.3 K/mm3 (1.2-5.4) L 05/14/21 05:45 [place] # (Auto) 0.2 K/mm3 (0.0-0.8) 05/14/21 05:45 Eos # (Auto) 0.0 K/mm3 (0.0-0.4) 05/14/21 05:45 Baso # (Auto) 0.0 K/mm3 (0.0-0.1) 05/14/21 05:45 Seg Neutrophils % 86.1 % (40.0-70.0) H 05/14/21 05:45 Seg Neutrophils # 2.8 K/mm3 (1.8-7.7) 05/14/21 05:45 D-Dimer 271.60 ng/mlDDU (0-234) H 05/15/21 14:10 ABG pH 7.390 (7.320-7.450) 05/16/21 12:30 POC ABG pCO2 41.1 mmHg (32.0-48.0) 05/16/21 12:30 POC ABG pO2 74.3 mmHg (83-108) L 05/16/21 12:30 POC ABG HCO3 24.3 05/16/21 12:30 ABG O2 Saturation 94.6 (0-100) 05/16/21 12:30 POC ABG Base Excess -0.6 05/16/21 12:30 ABG Hemoglobin 15.5 (12.0-17.5) 05/16/21 12:30 ABG Oxyhemoglobin 93.4 (94-98) L 05/16/21 12:30 ABG Methemoglobin 0.3 (0.0-1.5) 05/16/21 12:30 ABG Sodium 135.8 mmol/L (136.0-145.0) L 05/16/21 12:30 ABG Potassium 4.0 mmol/L (3.40-4.50) 05/16/21 12:30 ABG Chloride 100.0 mmol/L (98-107) 05/16/21 12:30 ABG Glucose 443 mg/dL (65-95) H 05/16/21 12:30 Carboxyhemoglobin 1.0 (0.5-1.5) 05/16/21 12:30 FiO2 % 28.0 05/16/21 12:30 Sodium 133 mmol/L (137-145) L 05/20/21 20:01 Potassium 3.3 mmol/L (3.6-5.0) L 05/20/21 20:01 Chloride 92.8 mmol/L (98-107) L 05/20/21 20:01 Carbon Dioxide 32 mmol/L (22-30) H 05/20/21 20:01 Anion Gap 12 mmol/L 05/20/21 20:01 BUN 20 mg/dL (9-20) 05/20/21 20:01 Creatinine 0.6 mg/dL (0.8-1.3) L 05/20/21 20:01 Estimated GFR > 60 ml/min 05/20/21 20:01 BUN/Creatinine Ratio 33 % 05/20/21 20:01 Glucose 330 mg/dL (75-100) H 05/20/21 20:01 POC Glucose 380 mg/dL (70-105) H 05/20/21 20:32 Hemoglobin A1c 9.8 % (4-6) H 05/14/21 05:45 Lactic Acid 2.40 mmol/L (0.7-2.0) H* 05/13/21 15:45 Calcium 9.1 mg/dL (8.4-10.2) 05/20/21 20:01 Ferritin 502.7 ng/mL (30.0-300.0) H 05/15/21 14:10 Total Bilirubin 0.40 mg/dL (0.1-1.2) 05/20/21 20:01 AST 30 units/L (5-40) 05/20/21 20:01 ALT 48 units/L (7-56) 05/20/21 20:01 Alkaline Phosphatase 60 units/L (35-129) 05/20/21 20:01 Lactate Dehydrogenase 272 units/L (91-180) H 05/15/21 14:10 Troponin T < 0.010 ng/mL (0.00-0.029) 05/13/21 14:38 C-Reactive Protein 3.50 mg/dL (0.00-1.30) H 05/15/21 14:10 Total Protein 6.4 g/dL (6.3-8.2) 05/20/21 20:01 Albumin 3.1 g/dL (3.9-5) L 05/20/21 20:01 Albumin/Globulin Ratio 0.9 % 05/20/21 20:01 Procalcitonin 0.08 ng/mL (<0.15) 05/15/21 14:10 Arterial Blood Glucose 443 mg/dL (65-95) H 05/16/21 12:30 Arterial Blood Ionized Calcium 4.7 mg/dL (4.6-5.3) 05/16/21 12:30 Urine Color Yellow (Yellow) 05/13/21 Unknown Urine Turbidity Clear (Clear) 05/13/21 Unknown Urine pH 9.0 (5.0-7.0) H 05/13/21 Unknown Ur Specific [place] 1.012 (1.003-1.030) 05/13/21 Unknown Urine Protein <15 mg/dl mg/dL (Negative) 05/13/21 Unknown Urine Glucose (UA) Neg mg/dL (Negative) 05/13/21 Unknown Urine Ketones Neg mg/dL (Negative) 05/13/21 Unknown Urine Blood Neg (Negative) 05/13/21 Unknown Urine Nitrite Neg (Negative) 05/13/21 Unknown Urine Bilirubin Neg (Negative) 05/13/21 Unknown Urine Urobilinogen < 2.0 mg/dL (<2.0) 05/13/21 Unknown Ur Leukocyte Esterase Neg (Negative) 05/13/21 Unknown Urine WBC (Auto) 1.0 /HPF (0.0-6.0) 05/13/21 Unknown Urine RBC (Auto) < 1.0 /HPF (0.0-6.0) 05/13/21 Unknown Urine Bacteria (Auto) 1+ /HPF (Negative) 05/13/21 Unknown Coronavirus (PCR) Positive (Negative) A 05/14/21 Unknown Quan/IV: Voiding Method Diaper Active Medications - Current Medications Current Medications: Generic Name Dose Route Start Last Admin Trade Name Freq PRN Reason Stop Dose Admin Acetaminophen 650 mg 05/13/21 23:07 Acetaminophen 325 Mg Tab PO Q4H PRN Pain MILD(1-3)/Fever >100.5/MARTINEZ Albuterol 2.5 mg 05/14/21 10:58 Albuterol 2.5 Mg/3 Ml Nebu IH Q4H PRN Wheezing Ascorbic Acid 1,000 mg 05/13/21 23:45 05/20/21 21:20 Ascorbic Acid 500 Mg Tab PO 1,000 mg BID SARIAH Administration Cholecalciferol 5,000 unit 05/14/21 10:00 05/20/21 10:07 Cholecalciferol (Vit D3) 5,000 Unit Tab PO 5,000 unit DAILY SARIAH Administration Dexamethasone 6 mg 05/16/21 10:00 05/20/21 10:08 Dexamethasone 4 Mg Tab PO 05/22/21 12:00 6 mg DAILY SARIAH Administration Dextrose 50 ml 05/15/21 10:22 Dextrose 50% In Water (25gm) 50 Ml Syringe IV Q30MIN PRN Hypoglycemia Protocol Enoxaparin Sodium 40 mg 05/14/21 10:00 05/20/21 10:07 Enoxaparin 40 Mg/0.4 Ml Inj SUB-Q 40 mg QDAY SARIAH Administration Famotidine 20 mg 05/14/21 10:00 05/20/21 21:20 Famotidine 20 Mg Tab PO 20 mg BID SARIAH Administration Hydromorphone HCl 0.5 mg 05/13/21 23:07 Hydromorphone 1 Mg/1 Ml Inj IV Q3H PRN Pain , Severe (7-10) REMDESIVIR 100 mg/ Sodium 250 mls @ 500 mls/hr 05/21/21 21:00 Chloride IV 05/24/21 21:29 Q24HR@2100 SARIAH Insulin Human Isoph/Insulin Regular 15 unit 05/18/21 18:00 05/20/21 17:38 Insulin Nph/Regular 70/30 Inj SUB-Q 15 unit BIDDIAB SARIAH Administration Insulin Human Lispro 0 unit 05/15/21 11:30 05/20/21 17:38 Insulin Lispro 100 Unit/Ml SUB-Q 2 unit AC SARIAH Administration Protocol Insulin Human Lispro 0 unit 05/15/21 22:00 05/20/21 21:26 Insulin Lispro 100 Unit/Ml SUB-Q 8 unit QHS SARIAH Administration Protocol Metoclopramide HCl 10 mg 05/13/21 23:07 Metoclopramide 10 Mg/2 Ml Inj IV Q6H PRN Nausea And Vomiting Ondansetron HCl 4 mg 05/13/21 23:07 Ondansetron 4 Mg/2 Ml Inj IV Q8H PRN Nausea And Vomiting Oxycodone/Acetaminophen 1 tab 05/13/21 23:07 Oxycodone /Acetaminophen 5-325mg Tab PO Q6H PRN Pain, Moderate (4-6) Sodium Chloride 10 ml 05/14/21 10:00 05/20/21 21:21 Sodium Chloride 0.9% 10 Ml Flush Syringe IV 10 ml BID SARIAH Administration Sodium Chloride 10 ml 05/13/21 23:07 Sodium Chloride 0.9% 10 Ml Flush Syringe IV PRN PRN LINE FLUSH Sodium Chloride 50 ml 05/20/21 21:00 05/20/21 21:20 Sodium Chloride 0.9% 50 Ml Ivpb IV 05/24/21 21:01 50 ml Q24HR@2100 SARIAH Administration Zinc Sulfate 220 mg 05/13/21 23:45 05/20/21 21:20 Zinc Sulfate 220 Mg Cap PO 220 mg BID SARIAH Administration Nutrition/Malnutrition Assess - Dietary Evaluation Nutrition/Malnutrition Findings: Nutrition Notes Start: 05/15/21 09:56 Freq: Status: Active Protocol: Document 05/19/21 11:58 (Rec: 05/19/21 12:03 [email or web address]) Nutrition Notes Initial or Follow up Reassessment Current Diagnosis COPD,Diabetes Other Pertinent Diagnosis colitis, hx colon cancer, pneu , COVID(+) Current Diet Consistent CHO Labs/Tests POC Glu range: 224-469 Pertinent Medications Decadron Height 5 ft 8 in Weight 69.7 kg [place] Body Weight (kg) 70.00 BMI 23.3 Weight Status Appropriate Subjective/Other Information Pt reports eating well. Pt seems slightly confused. Per chart, pt eating 100% of meals . Pt asked for ONS. Percent of energy/protein needs met: 100%/100% Burn Absent Trauma Absent GI Symptoms Other Current % PO Good (75-100%) Minimum of two criteria No physical signs of malnutrition #1 Nutrition Diagnosis Inadequate energy intake As Evidenced by Signs and Symptoms pt meeting 100% of needs Diagnosis Progress(for reassessment Improved documentation) Is patient on ventilator? No Is Patient Ambulatory and/or Out of Bed Yes REE-([facility]-ambulatory/OOB) [ 1821.950 [id number]] Calculation Used for Recommendations [facility] Additional Notes Protein: (1-1.2 g/kg) 68-82g Fluid: 1 ml/kcal or per MD Nutrition Intervention Change Diet Order: continue Add Supplement/Snack (indicate name/kcal Glucerna daily /protein ) Provides kCal: 220 Provides Protein (gm) 10 Goal #1 Meet at least 75% of energy and protein needs via PO and ONS Anticipated Discharge Needs: consistent CHO Follow-Up By: 05/24/21 Additional Comments F/u: stable intakes
[2021-05-21] MEDS ORDERED: POTASSIUM CHLORIDE ER 20 MEQ TAB PO ONE (07:45)
[2021-05-21] MEDS: INSULIN LISPRO 100 UNIT/ML SUB-Q SCH ×4 (08:18→21:31)
[2021-05-21 08:52] LABS: Alanine Aminotransferase 48 units/L (7-56); Albumin 3.3 g/dL (3.9-5); Blood Urea Nitrogen 15 mg/dL (9-20); Calcium 9.6 mg/dL (8.4-10.2); Hemolysis Index 6
[2021-05-21 08:54] LABS: BUN/Creatinine Ratio 30
[2021-05-21] MEDS: CHOLECALCIFEROL (VIT D3) 5,000 UNIT TAB PO SCH (09:18)
[2021-05-21] MEDS: ENOXAPARIN 40 MG/0.4 ML INJ SUB-Q SCH (09:18)
[2021-05-21] MEDS: ASCORBIC ACID 500 MG TAB PO SCH ×2 (09:18→21:31)
[2021-05-21] MEDS: DEXAMETHASONE 4 MG TAB PO SCH (09:18)
[2021-05-21] MEDS: INSULIN NPH/REGULAR 70/30 INJ SUB-Q SCH ×2 (09:18→16:47)
[2021-05-21] MEDS: FAMOTIDINE 20 MG TAB PO SCH ×2 (09:18→21:31)
[2021-05-21] MEDS: ZINC SULFATE 220 MG CAP PO SCH ×2 (14:18→21:31)
[2021-05-21] MEDS ORDERED: INSULIN NPH/REGULAR 70/30 INJ SUB-Q SCH (17:00)
--- NOTE | 2021-05-21 20:56 | Progress Note ---
Assessment and Plan Hemoptysis h/o COPD SIRS (systemic inflammatory response syndrome) Viral syndrome T2DM (type 2 diabetes mellitus) Colitis COVID [positive -CXR, ABG as clinically indicated -Continue to titrate supplemental oxygen therapy to keep SpO2 89-90% -Continue with airborne and contact isolation -Continue with bronchodilators - Remdesivir as per ID/Pulmonary developed protocols - continue systemic steroids for oxygen dependent COVID-19 infection - Monitor inflammatory markers per facility protocol - ferritin, Ddimer, CRP - anticoagulation per system Protocol based on d-dimer and clinical considerations -Monitor dorothy slaughter bleeding, had an episode of hemoptysis when he was initially admitted - Continue contact and airborne isolation - continue to titrate supplemental oxygen to keep SpO2 89-92% - continue to avoid nephrotoxins, fluid restrictive strategies - PT/OT as tolerated - accuchecks with glycemic control per SSI for target blood glucose < 180 mg/dL - home oxygen evaluation at discharge - Flu & pneumovax per protocol - Pulmonary out patient follow up for PFTs and optimization of respiratory stat us - continue other care per attending / other consultants - prn analgesia per pain score Subjective Date of service: 05/21/21 Principal diagnosis: Hemoptysis; COVID-19 Infxn; Pneumonia; COPD; SIRS; DM II Interval history: Patient is seen today for: Hemoptysis; COVID-19 Infxn; Pneumonia; COPD; SIRS; DM II Seen and examined at bedside; 24hour events reviewed; nursing and respiratory care staff consulted; no adverse overnight events reported to me; resting in bed; feels a little better no further episodes of hemoptysis; denies N/V/F/C/chest pain ; remains on supplemental oxygen Objective Vital Signs - 12hr 05/21/21 05/21/21 10:00 20:19 Temperature 98.1 F Pulse Rate 77 Respiratory 18 Rate Blood Pressure 138/80 O2 Sat by Pulse 100 89 Oximetry Constitutional: no acute distress, alert, other (elderly thin male with milldy increased respiratory efort at rest) Eyes: non-icteric ENT: oropharynx dry, other (POOR ORAL DENTITION) Neck: supple, no lymphadenopathy Effort: mildly labored Ascultation: Bilateral: clear, diminished breath sounds Percussion: Bilateral: not dull Cardiovascular: regular rate and rhythm, other (S1,S2) Gastrointestinal: normoactive bowel sounds, soft, non-tender, non-distended Integumentary: normal Extremities: no cyanosis, no edema, pulses normal, other (DIGITAL CLUBBING) Neurologic: normal mental status, non-focal exam, pupils equal and round, motor strength normal and Psychiatric: mood appropriate, anxious CBC and BMP: 05/15/21 05:24 05/23/21 06:02 ABG, PT/INR, D-dimer: ABG ABG pH 7.390 (7.320-7.450) 05/16/21 12:30 POC ABG pCO2 41.1 mmHg (32.0-48.0) 05/16/21 12:30 POC ABG pO2 74.3 mmHg (83-108) L 05/16/21 12:30 POC ABG HCO3 24.3 05/16/21 12:30 ABG O2 Saturation 94.6 (0-100) 05/16/21 12:30 PT/INR, D-dimer D-Dimer 271.60 ng/mlDDU (0-234) H 05/15/21 14:10 Abnormal lab findings: Abnormal Labs 05/13/21 05/13/21 05/13/21 11:24 11:24 11:24 WBC 4.1 L RBC 5.30 H Hgb 15.4 H Hct 46.6 H Plt Count Lymph % (Auto) 8.1 L [place] % (Auto) 10.4 H Lymph # (Auto) 0.3 L Seg Neutrophils % 81.0 H D-Dimer 314.43 H POC ABG pO2 ABG Oxyhemoglobin ABG Sodium ABG Glucose Sodium Potassium Chloride Carbon Dioxide Creatinine Glucose 121 H POC Glucose Hemoglobin A1c Lactic Acid Ferritin AST 54 H Lactate Dehydrogenase C-Reactive Protein Total Protein Albumin Arterial Blood Glucose Urine pH Coronavirus (PCR) 05/13/21 05/13/21 05/13/21 11:24 14:38 15:45 WBC RBC Hgb Hct Plt Count Lymph % (Auto) [place] % (Auto) Lymph # (Auto) Seg Neutrophils % D-Dimer POC ABG pO2 ABG Oxyhemoglobin ABG Sodium ABG Glucose Sodium Potassium Chloride Carbon Dioxide Creatinine Glucose 125 H POC Glucose Hemoglobin A1c Lactic Acid 3.10 H* 2.40 H* Ferritin AST Lactate Dehydrogenase 248 H C-Reactive Protein 7.40 H Total Protein Albumin Arterial Blood Glucose Urine pH Coronavirus (PCR) 05/13/21 05/14/2121 Unknown 05:45 05:45 WBC 3.3 L RBC Hgb Hct Plt Count 138 L Lymph % (Auto) 7.8 L [place] % (Auto) Lymph # (Auto) 0.3 L Seg Neutrophils % 86.1 H D-Dimer POC ABG pO2 ABG Oxyhemoglobin ABG Sodium ABG Glucose Sodium Potassium Chloride Carbon Dioxide 21 L Creatinine 0.5 L Glucose 113 H POC Glucose Hemoglobin A1c Lactic Acid Ferritin AST 84 H Lactate Dehydrogenase C-Reactive Protein Total Protein 6.2 L D Albumin Arterial Blood Glucose Urine pH 9.0 H Coronavirus (PCR) 05/14/21 05/14/21 05/14/21 05:45 11:15 Unknown WBC RBC Hgb Hct Plt Count Lymph % (Auto) [place] % (Auto) Lymph # (Auto) Seg Neutrophils % D-Dimer POC ABG pO2 ABG Oxyhemoglobin ABG Sodium ABG Glucose Sodium Potassium Chloride Carbon Dioxide Creatinine Glucose POC Glucose 141 H Hemoglobin A1c 9.8 H Lactic Acid Ferritin AST Lactate Dehydrogenase C-Reactive Protein Total Protein Albumin Arterial Blood Glucose Urine pH Coronavirus (PCR) Positive A 05/15/21 05/15/21 05/15/21 05:24 07:48 12:10 WBC RBC Hgb Hct Plt Count Lymph % (Auto) [place] % (Auto) Lymph # (Auto) Seg Neutrophils % D-Dimer POC ABG pO2 ABG Oxyhemoglobin ABG Sodium ABG Glucose Sodium Potassium Chloride Carbon Dioxide Creatinine 0.6 L Glucose 183 H POC Glucose 187 H 251 H Hemoglobin A1c Lactic Acid Ferritin AST Lactate Dehydrogenase C-Reactive Protein Total Protein Albumin Arterial Blood Glucose Urine pH Coronavirus (PCR) 05/15/21 05/15/21 05/15/21 14:10 14:10 14:10 WBC RBC Hgb Hct Plt Count Lymph % (Auto) [place] % (Auto) Lymph # (Auto) Seg Neutrophils % D-Dimer 271.60 H POC ABG pO2 ABG Oxyhemoglobin ABG Sodium ABG Glucose Sodium Potassium Chloride Carbon Dioxide Creatinine Glucose 327 H POC Glucose Hemoglobin A1c Lactic Acid Ferritin 502.7 H AST Lactate Dehydrogenase 272 H C-Reactive Protein 3.50 H Total Protein Albumin Arterial Blood Glucose Urine pH Coronavirus (PCR) 05/15/21 05/15/21 05/16/21 17:09 21:41 07:28 WBC RBC Hgb Hct Plt Count Lymph % (Auto) [place] % (Auto) Lymph # (Auto) Seg Neutrophils % D-Dimer POC ABG pO2 ABG Oxyhemoglobin ABG Sodium ABG Glucose Sodium Potassium Chloride Carbon Dioxide Creatinine Glucose POC Glucose 166 H 448 H 264 H Hemoglobin A1c Lactic Acid Ferritin AST Lactate Dehydrogenase C-Reactive Protein Total Protein Albumin Arterial Blood Glucose Urine pH Coronavirus (PCR) 05/16/21 05/16/21 05/16/21 11:56 12:30 16:37 WBC RBC Hgb Hct Plt Count Lymph % (Auto) [place] % (Auto) Lymph # (Auto) Seg Neutrophils % D-Dimer POC ABG pO2 74.3 L ABG Oxyhemoglobin 93.4 L ABG Sodium 135.8 L ABG Glucose 443 H Sodium Potassium Chloride Carbon Dioxide Creatinine Glucose POC Glucose 405 H 254 H Hemoglobin A1c Lactic Acid Ferritin AST Lactate Dehydrogenase C-Reactive Protein Total Protein Albumin Arterial Blood Glucose 443 H Urine pH Coronavirus (PCR) 05/16/21 05/17/21 05/17/21 21:41 09:12 12:58 WBC RBC Hgb Hct Plt Count Lymph % (Auto) [place] % (Auto) Lymph # (Auto) Seg Neutrophils % D-Dimer POC ABG pO2 ABG Oxyhemoglobin ABG Sodium ABG Glucose Sodium Potassium Chloride Carbon Dioxide Creatinine Glucose POC Glucose 241 H 226 H 256 H Hemoglobin A1c Lactic Acid Ferritin AST Lactate Dehydrogenase C-Reactive Protein Total Protein Albumin Arterial Blood Glucose Urine pH Coronavirus (PCR) 05/17/21 05/17/21 05/18/21 17:14 21:52 07:45 WBC RBC Hgb Hct Plt Count Lymph % (Auto) [place] % (Auto) Lymph # (Auto) Seg Neutrophils % D-Dimer POC ABG pO2 ABG Oxyhemoglobin ABG Sodium ABG Glucose Sodium Potassium Chloride Carbon Dioxide Creatinine Glucose POC Glucose 290 H 290 H 224 H Hemoglobin A1c Lactic Acid Ferritin AST Lactate Dehydrogenase C-Reactive Protein Total Protein Albumin Arterial Blood Glucose Urine pH Coronavirus (PCR) 05/18/21 05/18/21 05/18/21 12:08 16:32 17:40 WBC RBC Hgb Hct Plt Count Lymph % (Auto) [place] % (Auto) Lymph # (Auto) Seg Neutrophils % D-Dimer POC ABG pO2 ABG Oxyhemoglobin ABG Sodium ABG Glucose Sodium Potassium Chloride Carbon Dioxide Creatinine Glucose POC Glucose 469 H 403 H 391 H Hemoglobin A1c Lactic Acid Ferritin AST Lactate Dehydrogenase C-Reactive Protein Total Protein Albumin Arterial Blood Glucose Urine pH Coronavirus (PCR) 05/18/21 05/19/21 05/19/21 21:18 07:44 10:40 WBC RBC Hgb Hct Plt Count Lymph % (Auto) [place] % (Auto) Lymph # (Auto) Seg Neutrophils % D-Dimer POC ABG pO2 ABG Oxyhemoglobin ABG Sodium ABG Glucose Sodium Potassium Chloride Carbon Dioxide Creatinine Glucose POC Glucose 316 H 238 H 257 H Hemoglobin A1c Lactic Acid Ferritin AST Lactate Dehydrogenase C-Reactive Protein Total Protein Albumin Arterial Blood Glucose Urine pH Coronavirus (PCR) 05/19/21 05/19/21 05/20/21 17:19 21:15 07:37 WBC RBC Hgb Hct Plt Count Lymph % (Auto) [place] % (Auto) Lymph # (Auto) Seg Neutrophils % D-Dimer POC ABG pO2 ABG Oxyhemoglobin ABG Sodium ABG Glucose Sodium Potassium Chloride Carbon Dioxide Creatinine Glucose POC Glucose 339 H 340 H 324 H Hemoglobin A1c Lactic Acid Ferritin AST Lactate Dehydrogenase C-Reactive Protein Total Protein Albumin Arterial Blood Glucose Urine pH Coronavirus (PCR) 05/20/21 05/20/21 05/20/21 11:19 17:19 20:01 WBC RBC Hgb Hct Plt Count Lymph % (Auto) [place] % (Auto) Lymph # (Auto) Seg Neutrophils % D-Dimer POC ABG pO2 ABG Oxyhemoglobin ABG Sodium ABG Glucose Sodium 133 L Potassium 3.3 L Chloride 92.8 L Carbon Dioxide 32 H Creatinine 0.6 L Glucose 330 H POC Glucose 256 H 172 H Hemoglobin A1c Lactic Acid Ferritin AST Lactate Dehydrogenase C-Reactive Protein Total Protein Albumin 3.1 L Arterial Blood Glucose Urine pH Coronavirus (PCR) 05/20/21 05/21/21 05/21/21 20:32 07:04 07:56 WBC RBC Hgb Hct Plt Count Lymph % (Auto) [place] % (Auto) Lymph # (Auto) Seg Neutrophils % D-Dimer POC ABG pO2 ABG Oxyhemoglobin ABG Sodium ABG Glucose Sodium Potassium 3.5 L Chloride Carbon Dioxide 34 H Creatinine 0.5 L Glucose 130 H POC Glucose 380 H 150 H Hemoglobin A1c Lactic Acid Ferritin AST Lactate Dehydrogenase C-Reactive Protein Total Protein Albumin 3.3 L Arterial Blood Glucose Urine pH Coronavirus (PCR) 05/21/21 05/21/21 05/21/21 13:07 13:14 16:30 WBC RBC Hgb Hct Plt Count Lymph % (Auto) [place] % (Auto) Lymph # (Auto) Seg Neutrophils % D-Dimer POC ABG pO2 ABG Oxyhemoglobin ABG Sodium ABG Glucose Sodium Potassium Chloride Carbon Dioxide Creatinine Glucose 517 H* POC Glucose > 600 H > 600 H Hemoglobin A1c Lactic Acid Ferritin AST Lactate Dehydrogenase C-Reactive Protein Total Protein Albumin Arterial Blood Glucose Urine pH Coronavirus (PCR) 05/21/21 16:33 WBC RBC Hgb Hct Plt Count Lymph % (Auto) [place] % (Auto) Lymph # (Auto) Seg Neutrophils % D-Dimer POC ABG pO2 ABG Oxyhemoglobin ABG Sodium ABG Glucose Sodium Potassium Chloride Carbon Dioxide Creatinine Glucose POC Glucose 436 H Hemoglobin A1c Lactic Acid Ferritin AST Lactate Dehydrogenase C-Reactive Protein Total Protein Albumin Arterial Blood Glucose Urine pH Coronavirus (PCR) Chest x-ray: image reviewed Allied health notes reviewed: nursing
[2021-05-21] MEDS: REMDESIVIR 100 MG in SODIUM CHLORIDE 0.9% 250ML 250 ML IV SCH (21:32)
[2021-05-21] MEDS: SODIUM CHLORIDE 0.9% 50 ML IVPB IV SCH (21:32)
[2021-05-22] MEDS: INSULIN LISPRO 100 UNIT/ML SUB-Q SCH ×4 (07:30→22:49)
[2021-05-22] MEDS: INSULIN NPH/REGULAR 70/30 INJ SUB-Q SCH ×3 (08:00→19:52)
[2021-05-22 08:52] LABS: Alanine Aminotransferase 52 units/L (7-56); Albumin 3.7 g/dL (3.9-5); Blood Urea Nitrogen 15 mg/dL (9-20); Calcium 9.7 mg/dL (8.4-10.2); Hemolysis Index 2
[2021-05-22 08:59] LABS: BUN/Creatinine Ratio 30
--- NOTE | 2021-05-22 09:53 | Progress Note ---
Assessment and Plan Assessment and plan: --Positive COVID-19 infection Current Visit: Yes Status: Acute Coronavirus PCR positive, continue IV Decadron Patient was saturating room air initially, however he is requiring supplemental oxygen today Titrate, home O2 evaluation prior to discharge Patient is requiring 2 to 3 L nasal cannula We will start remdesivir per protocol --Hypoxia; Current Visit: Yes Status: Acute Patient is on 2 L of nasal cannula oxygen ; OT evaluation /pulse oximetry of 93% on 2LPM at rest. pulse oximetry of 89%on room air at rest. pulse oximetry of 70% on room air with activity. pulse oximetry 91% on 2LPM with activity. Initially patient was saturating well on room air However patient is requiring 2 L of nasal cannula oxygen now Started remdesivir yesterday, for total 5 days Home O2 evaluation, set up home oxygen at discharge --Type 2 diabetes mellitus; labile blood sugars Current Visit: Yes Status: Acute Partly due to steroid and partly due to noncompliance with diet, patient had very high blood sugars yesterday 400-600 Long-acting insulin dose increased, this morning blood sugars are in the lower range We will reduce long-acting insulin dose, closely monitor blood sugars A1c is 9.8, diabetic education nutrition education Adjust as needed --Hypokalemia; Current Visit: Yes Status: Acute Replenished with KCl, monitor electrolytes --SIRS (systemic inflammatory response syndrome) Current Visit: Yes Status: Acute Patient has tachycardia elevated lactic acid level and temperature of 99.9 IV fluids for 12 hours --Hemoptysis Current Visit: Yes Status: Acute One episode--resolved -- Polycythemia due to fall in plasma volume Current Visit: Yes Status: Deleted Resolved --COPD exacerbation Current Visit: Yes Status: Acute Duo nebs and IV Decadron --T2DM (type 2 diabetes mellitus) Current Visit: Yes Status: Chronic Insulin adjusted --Mild colitis; on CT abdomen Current Visit: Yes Status: Acute Patient does not have any GI symptoms Tolerating ADA diet Recommend outpatient GI evaluation upon discharge --DVT prophylaxis Current Visit: Yes Status: Acute Subcu Lovenox We will monitor the patient and adjust management as needed Plan of care reviewed with the patient and his nurse 05/20/2021; patient is requiring supplemental oxygen 2 L via NC Continue IV Decadron, start remdesivir ID following, home O2 evaluation and set up prior to discharge 05/21/2021; Hypoxia requiring supplemental oxygen, started remdesivir total 5 days Continue Decadron total 10 days Hypokalemia corrected with KCl 05/22/2021; Patient is hypoxic requiring supplemental oxygen 2 L of nasal cannula Receiving IV dexamethasone and IV remdesivir per protocol Prone position encouraged Labile blood sugars partly due to steroid use and partly due to noncompliance with diet Will adjust insulin dose as needed Diabetic education and nutrition education prior to discharge History Interval history: I have seen and examined the patient at the bedside this morning Patient's chart and medications reviewed Strict isolation precautions and PPE protocols followed per COVID-19 guidelines Patient feels slightly better Requiring 2 L of nasal cannula oxygen Patient has no new complaints except for mild shortness of breath Vital signs noted Hospitalist Physical - Constitutional Vitals: Temp Pulse Resp BP Pulse Ox 97.9 F 76 20 164/100 90 05/22/21 04:59 05/22/21 04:59 05/22/21 04:59 05/22/21 04:59 05/22/21 04:59 General appearance: Present: mild distress, cachectic, other (Not done to prevent disease transmission) - EENT Eyes: Present: PERRL, EOM intact - Neck Neck: Present: supple, normal ROM - Respiratory Respiratory effort: normal Respiratory: bilateral: diminished, rhonchi, negative: rales, wheezing - Cardiovascular Rhythm: regular Heart Sounds: Present: S1 & S2 - Extremities Extremities: no ischemia, No edema - Abdominal General gastrointestinal: soft, non-tender, non-distended, normal bowel sounds - Integumentary Integumentary: Present: clear, warm - Psychiatric Psychiatric: appropriate mood/affect, cooperative - Neurologic Neurologic: CNII-XII intact, moves all extremities HEART Score - HEART Score EKG: Normal Age: > 65 Risk factors: 1-2 risk factors Troponin: Troponin T < 0.010 ng/mL (0.00-0.029) 05/13/21 14:38 Troponin: < normal limit - Critical Actions Critical Actions: 0-3 pts:0.9-1.7%risk of adverse cardiac event.Candidate for discharge Results - Labs CBC & Chem 7: 05/15/21 05:24 05/22/21 07:17 Labs: Laboratory Last Values WBC 5.5 K/mm3 (4.5-11.0) 05/15/21 05:24 RBC 4.96 M/mm3 (3.65-5.03) 05/15/21 05:24 Hgb 14.5 gm/dl (11.8-15.2) 05/15/21 05:24 Hct 43.6 % (35.5-45.6) 05/15/21 05:24 MCV 88 fl (84-94) 05/15/21 05:24 MCH 29 pg (28-32) 05/15/21 05:24 MCHC 33 % (32-34) 05/15/21 05:24 RDW 13.2 % (13.2-15.2) 05/15/21 05:24 Plt Count 144 K/mm3 (140-440) 05/15/21 05:24 Lymph % (Auto) 7.8 % (13.4-35.0) L 05/14/21 05:45 [place] % (Auto) 6.0 % (0.0-7.3) 05/14/21 05:45 Eos % (Auto) 0.0 % (0.0-4.3) 05/14/21 05:45 Baso % (Auto) 0.1 % (0.0-1.8) 05/14/21 05:45 Lymph # (Auto) 0.3 K/mm3 (1.2-5.4) L 05/14/21 05:45 [place] # (Auto) 0.2 K/mm3 (0.0-0.8) 05/14/21 05:45 Eos # (Auto) 0.0 K/mm3 (0.0-0.4) 05/14/21 05:45 Baso # (Auto) 0.0 K/mm3 (0.0-0.1) 05/14/21 05:45 Seg Neutrophils % 86.1 % (40.0-70.0) H 05/14/21 05:45 Seg Neutrophils # 2.8 K/mm3 (1.8-7.7) 05/14/21 05:45 D-Dimer 271.60 ng/mlDDU (0-234) H 05/15/21 14:10 ABG pH 7.390 (7.320-7.450) 05/16/21 12:30 POC ABG pCO2 41.1 mmHg (32.0-48.0) 05/16/21 12:30 POC ABG pO2 74.3 mmHg (83-108) L 05/16/21 12:30 POC ABG HCO3 24.3 05/16/21 12:30 ABG O2 Saturation 94.6 (0-100) 05/16/21 12:30 POC ABG Base Excess -0.6 05/16/21 12:30 ABG Hemoglobin 15.5 (12.0-17.5) 05/16/21 12:30 ABG Oxyhemoglobin 93.4 (94-98) L 05/16/21 12:30 ABG Methemoglobin 0.3 (0.0-1.5) 05/16/21 12:30 ABG Sodium 135.8 mmol/L (136.0-145.0) L 05/16/21 12:30 ABG Potassium 4.0 mmol/L (3.40-4.50) 05/16/21 12:30 ABG Chloride 100.0 mmol/L (98-107) 05/16/21 12:30 ABG Glucose 443 mg/dL (65-95) H 05/16/21 12:30 Carboxyhemoglobin 1.0 (0.5-1.5) 05/16/21 12:30 FiO2 % 28.0 05/16/21 12:30 Sodium 138 mmol/L (137-145) 05/22/21 07:17 Potassium 3.3 mmol/L (3.6-5.0) L 05/22/21 07:17 Chloride 95.1 mmol/L (98-107) L 05/22/21 07:17 Carbon Dioxide 33 mmol/L (22-30) H 05/22/21 07:17 Anion Gap 13 mmol/L 05/22/21 07:17 BUN 15 mg/dL (9-20) 05/22/21 07:17 Creatinine 0.5 mg/dL (0.8-1.3) L 05/22/21 07:17 Estimated GFR > 60 ml/min 05/22/21 07:17 BUN/Creatinine Ratio 30 % 05/22/21 07:17 Glucose 74 mg/dL (75-100) L 05/22/21 07:17 POC Glucose 79 mg/dL (70-105) 05/22/21 07:46 Hemoglobin A1c 9.8 % (4-6) H 05/14/21 05:45 Lactic Acid 2.40 mmol/L (0.7-2.0) H* 05/13/21 15:45 Calcium 9.7 mg/dL (8.4-10.2) 05/22/21 07:17 Ferritin 502.7 ng/mL (30.0-300.0) H 05/15/21 14:10 Total Bilirubin 0.60 mg/dL (0.1-1.2) 05/22/21 07:17 AST 30 units/L (5-40) 05/22/21 07:17 ALT 52 units/L (7-56) 05/22/21 07:17 Alkaline Phosphatase 75 units/L (35-129) 05/22/21 07:17 Lactate Dehydrogenase 272 units/L (91-180) H 05/15/21 14:10 Troponin T < 0.010 ng/mL (0.00-0.029) 05/13/21 14:38 C-Reactive Protein 3.50 mg/dL (0.00-1.30) H 05/15/21 14:10 Total Protein 6.7 g/dL (6.3-8.2) 05/22/21 07:17 Albumin 3.7 g/dL (3.9-5) L 05/22/21 07:17 Albumin/Globulin Ratio 1.2 % 05/22/21 07:17 Procalcitonin 0.08 ng/mL (<0.15) 05/15/21 14:10 Arterial Blood Glucose 443 mg/dL (65-95) H 05/16/21 12:30 Arterial Blood Ionized Calcium 4.7 mg/dL (4.6-5.3) 05/16/21 12:30 Urine Color Yellow (Yellow) 05/13/21 Unknown Urine Turbidity Clear (Clear) 05/13/21 Unknown Urine pH 9.0 (5.0-7.0) H 05/13/21 Unknown Ur Specific [place] 1.012 (1.003-1.030) 05/13/21 Unknown Urine Protein <15 mg/dl mg/dL (Negative) 05/13/21 Unknown Urine Glucose (UA) Neg mg/dL (Negative) 05/13/21 Unknown Urine Ketones Neg mg/dL (Negative) 05/13/21 Unknown Urine Blood Neg (Negative) 05/13/21 Unknown Urine Nitrite Neg (Negative) 05/13/21 Unknown Urine Bilirubin Neg (Negative) 05/13/21 Unknown Urine Urobilinogen < 2.0 mg/dL (<2.0) 05/13/21 Unknown Ur Leukocyte Esterase Neg (Negative) 05/13/21 Unknown Urine WBC (Auto) 1.0 /HPF (0.0-6.0) 05/13/21 Unknown Urine RBC (Auto) < 1.0 /HPF (0.0-6.0) 05/13/21 Unknown Urine Bacteria (Auto) 1+ /HPF (Negative) 05/13/21 Unknown Coronavirus (PCR) Positive (Negative) A 05/14/21 Unknown Quan/IV: Voiding Method Urinal Active Medications - Current Medications Current Medications: Generic Name Dose Route Start Last Admin Trade Name Freq PRN Reason Stop Dose Admin Acetaminophen 650 mg 05/13/21 23:07 Acetaminophen 325 Mg Tab PO Q4H PRN Pain MILD(1-3)/Fever >100.5/MARTINEZ Albuterol 2.5 mg 05/14/21 10:58 Albuterol 2.5 Mg/3 Ml Nebu IH Q4H PRN Wheezing Ascorbic Acid 1,000 mg 05/13/21 23:45 05/21/21 21:31 Ascorbic Acid 500 Mg Tab PO 1,000 mg BID SARIAH Administration Cholecalciferol 5,000 unit 05/14/21 10:00 05/21/21 09:18 Cholecalciferol (Vit D3) 5,000 Unit Tab PO 5,000 unit DAILY SARIAH Administration Dexamethasone 6 mg 05/16/21 10:00 05/21/21 09:18 Dexamethasone 4 Mg Tab PO 05/23/21 12:00 6 mg DAILY SARIAH Administration Dextrose 50 ml 05/15/21 10:22 Dextrose 50% In Water (25gm) 50 Ml Syringe IV Q30MIN PRN Hypoglycemia Protocol Enoxaparin Sodium 40 mg 05/14/21 10:00 05/21/21 09:18 Enoxaparin 40 Mg/0.4 Ml Inj SUB-Q 40 mg QDAY SARIAH Administration Famotidine 20 mg 05/14/21 10:00 05/21/21 21:31 Famotidine 20 Mg Tab PO 20 mg BID SARIAH Administration Hydromorphone HCl 0.5 mg 05/13/21 23:07 Hydromorphone 1 Mg/1 Ml Inj IV Q3H PRN Pain , Severe (7-10) REMDESIVIR 100 mg/ Sodium 250 mls @ 500 mls/hr 05/21/21 21:00 05/21/21 21:32 Chloride IV 05/24/21 21:29 500 mls/hr Q24HR@2100 SARIAH Administration Insulin Human Isoph/Insulin Regular 15 unit 05/22/21 09:48 Insulin Nph/Regular 70/30 Inj SUB-Q BIDDIAB SARIAH Insulin Human Lispro 0 unit 05/21/21 16:30 05/21/21 21:31 Insulin Lispro 100 Unit/Ml SUB-Q 10 unit ACHS [facility] Administration Protocol Metoclopramide HCl 10 mg 05/13/21 23:07 Metoclopramide 10 Mg/2 Ml Inj IV Q6H PRN Nausea And Vomiting Ondansetron HCl 4 mg 05/13/21 23:07 Ondansetron 4 Mg/2 Ml Inj IV Q8H PRN Nausea And Vomiting Oxycodone/Acetaminophen 1 tab 05/13/21 23:07 Oxycodone /Acetaminophen 5-325mg Tab PO Q6H PRN Pain, Moderate (4-6) Potassium Chloride 40 meq 05/22/21 09:46 Potassium Chloride Er 20 Meq Tab PO 05/22/21 09:47 ONCE ONE Sodium Chloride 10 ml 05/14/21 10:00 05/21/21 21:32 Sodium Chloride 0.9% 10 Ml Flush Syringe IV 10 ml BID SARIAH Administration Sodium Chloride 10 ml 05/13/21 23:07 Sodium Chloride 0.9% 10 Ml Flush Syringe IV PRN PRN LINE FLUSH Sodium Chloride 50 ml 05/20/21 21:00 05/21/21 21:32 Sodium Chloride 0.9% 50 Ml Ivpb IV 05/24/21 21:01 50 ml Q24HR@2100 SARIAH Administration Zinc Sulfate 220 mg 05/13/21 23:45 05/21/21 21:31 Zinc Sulfate 220 Mg Cap PO 220 mg BID SARIAH Administration Nutrition/Malnutrition Assess - Dietary Evaluation Nutrition/Malnutrition Findings: Nutrition Notes Start: 05/15/21 09:56 Freq: Status: Active Protocol: Document 05/19/21 11:58 ZEESHAN (Rec: 05/19/21 12:03 ZEESHAN [id number]) Nutrition Notes Initial or Follow up Reassessment Current Diagnosis COPD,Diabetes Other Pertinent Diagnosis colitis, hx colon cancer, pneu , COVID(+) Current Diet Consistent CHO Labs/Tests POC Glu range: 224-469 Pertinent Medications Decadron Height 5 ft 8 in Weight 69.7 kg [place] Body Weight (kg) 70.00 BMI 23.3 Weight Status Appropriate Subjective/Other Information Pt reports eating well. Pt seems slightly confused. Per chart, pt eating 100% of meals . Pt asked for ONS. Percent of energy/protein needs met: 100%/100% Burn Absent Trauma Absent GI Symptoms Other Current % PO Good (75-100%) Minimum of two criteria No physical signs of malnutrition #1 Nutrition Diagnosis Inadequate energy intake As Evidenced by Signs and Symptoms pt meeting 100% of needs Diagnosis Progress(for reassessment Improved documentation) Is patient on ventilator? No Is Patient Ambulatory and/or Out of Bed Yes REE-([facility]-ambulatory/OOB) [ [id number] [id number]] Calculation Used for Recommendations [facility] Additional Notes Protein: (1-1.2 g/kg) 68-82g Fluid: 1 ml/kcal or per MD Nutrition Intervention Change Diet Order: continue Add Supplement/Snack (indicate name/kcal Glucerna daily /protein ) Provides kCal: 220 Provides Protein (gm) 10 Goal #1 Meet at least 75% of energy and protein needs via PO and ONS Anticipated Discharge Needs: consistent CHO Follow-Up By: 05/24/21 Additional Comments F/u: stable intakes
[2021-05-22] MEDS ORDERED: POTASSIUM CHLORIDE ER 20 MEQ TAB PO NR (10:30)
[2021-05-22] MEDS: ASCORBIC ACID 500 MG TAB PO SCH ×2 (10:45→22:46)
[2021-05-22] MEDS: ENOXAPARIN 40 MG/0.4 ML INJ SUB-Q SCH (10:45)
[2021-05-22] MEDS: ZINC SULFATE 220 MG CAP PO SCH ×2 (10:45→22:47)
[2021-05-22] MEDS: FAMOTIDINE 20 MG TAB PO SCH ×2 (10:45→22:47)
[2021-05-22] MEDS: CHOLECALCIFEROL (VIT D3) 5,000 UNIT TAB PO SCH (10:45)
[2021-05-22] MEDS: DEXAMETHASONE 4 MG TAB PO SCH (10:46)
--- NOTE | 2021-05-22 14:08 | Progress Note ---
Assessment and Plan 76-year-old male with history of diabetes, COPD, right eye blindness and s/p colon cancer resection 1 year ago, chronic back pain comes where EMS for cough and fever of 2 to 3 days. Patient also has generalized weakness. Patient had one episode of coughing up blood this morning but is not sure. It was only one episode and was not followed by any wheezing syncope etc. Patient has been using inhalers without significant relief. No hematemesis or melena. No weight loss. Patient is unvaccinated. In the emergency room patient dialysis low-grade fever of 99.9. And patient is also tachycardic with heart rate of 114/min. Patient sleeping on 2 litre O2. O2 saturation 96%. No acute respiratory distress. Patient afebrile. No leukocytosis. D Dimer elevated. Patients Angio CT of chest reported No CT evidence for pulmonary embolism. No evidence for thoracic aortic dissection. Linear parenchymal disease is present within the lingula. It is unclear if this is acute or chronic. Favor that this is atelectasis or chronic scarring. Unfortunately, there are no prior imaging studies for comparison. Mild emphysematous change. Patient is on REMDESIVIR, Lovenox and famotidine.Finished course of zithromax and ceftriaxone and dexamethasone - Patient Problems (1) Coronavirus infection Current Visit: Yes Status: Acute Plan to address problem: Management as infectious diseases. (2) COPD exacerbation Current Visit: Yes Status: Acute Plan to address problem: On 2 litre O2. Continue dexamethasone Albuterol nhaler S/C Lovenox Famotidine. Reglan. (3) Gastroenteritis due to COVID-19 virus Current Visit: Yes Status: Acute Plan to address problem: Managment as per primary care and Gastroenterology. (4) Hemoptysis Current Visit: Yes Status: Acute Plan to address problem: No hemoptysis at this time. (5) Hypoxia Current Visit: Yes Status: Acute Plan to address problem: On 2 litres O2. O2 saturation 96%. (6) Pneumonia due to COVID-19 virus Current Visit: Yes Status: Acute Plan to address problem: Patient finished course of Zithromax and ceftriaxone. (7) SIRS (systemic inflammatory response syndrome) Current Visit: Yes Status: Acute Plan to address problem: Improving. Patient afebrile No leukocytosis. 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 Subjective Date of service: 05/22/21 Principal diagnosis: Hemoptysis; COVID-19 Infxn; Pneumonia; COPD; SIRS; DM II Interval history: 76-year-old male with history of diabetes, COPD, right eye blindness and s/p colon cancer resection 1 year ago, chronic back pain comes where EMS for cough and fever of 2 to 3 days. Patient also has generalized weakness. Patient had one episode of coughing up blood this morning but is not sure. It was only one episode and was not followed by any wheezing syncope etc. Patient has been using inhalers without significant relief. No hematemesis or melena. No weight loss. Patient is unvaccinated. In the emergency room patient dialysis low-grade fever of 99.9. And patient is also tachycardic with heart rate of 114/min. Patients brantley virus PCR is Positive. Patient sleeping on 2 litre O2. O2 saturation 96%. No acute respiratory distress. Patient afebrile. No leukocytosis. D Dimer elevated. Patients Angio CT of chest reported No CT evidence for pulmonary embolism. No evidence for thoracic aortic dissection. Linear parenchymal disease is present within the lingula. It is unclear if this is acute or chronic. Favor that this is atelectasis or chronic scarring. Unfortunately, there are no prior imaging studies for comparison. Mild emphysematous change. Patient is on REMDESIVIR, Lovenox and famotidine.Finished course of zithromax and ceftriaxone and dexamethasone Objective Vital Signs - 12hr 05/22/21 04:59 Temperature 97.9 F Pulse Rate 76 Respiratory 20 Rate Blood Pressure 164/100 O2 Sat by Pulse 90 Oximetry Constitutional: no acute distress, asleep, other (elderly thin male with milldy increased respiratory efort at rest) Eyes: non-icteric ENT: oropharynx dry, other (POOR ORAL DENTITION) Neck: supple, no lymphadenopathy Effort: mildly labored Ascultation: Bilateral: diminished breath sounds, other (prolonged expiratory phase) Percussion: Bilateral: not dull Cardiovascular: regular rate and rhythm, other (s1,s2) Gastrointestinal: normoactive bowel sounds, soft, non-tender, non-distended Integumentary: normal Extremities: no cyanosis, no edema, pulses normal, other (DIGITAL CLUBBING) Neurologic: normal mental status, non-focal exam, pupils equal and round, motor strength normal and Psychiatric: mood appropriate, anxious CBC and BMP: 05/15/21 05:24 05/23/21 06:02 ABG, PT/INR, D-dimer: ABG ABG pH 7.390 (7.320-7.450) 05/16/21 12:30 POC ABG pCO2 41.1 mmHg (32.0-48.0) 05/16/21 12:30 POC ABG pO2 74.3 mmHg (83-108) L 05/16/21 12:30 POC ABG HCO3 24.3 05/16/21 12:30 ABG O2 Saturation 94.6 (0-100) 05/16/21 12:30 PT/INR, D-dimer D-Dimer 271.60 ng/mlDDU (0-234) H 05/15/21 14:10 Abnormal lab findings: Abnormal Labs 05/13/21 05/13/21 05/13/21 11:24 11:24 11:24 WBC 4.1 L RBC 5.30 H Hgb 15.4 H Hct 46.6 H Plt Count Lymph % (Auto) 8.1 L Shannon % (Auto) 10.4 H Lymph # (Auto) 0.3 L Seg Neutrophils % 81.0 H D-Dimer 314.43 H POC ABG pO2 ABG Oxyhemoglobin ABG Sodium ABG Glucose Sodium Potassium Chloride Carbon Dioxide Creatinine Glucose 121 H POC Glucose Hemoglobin A1c Lactic Acid Ferritin AST 54 H Lactate Dehydrogenase C-Reactive Protein Total Protein Albumin Arterial Blood Glucose Urine pH Coronavirus (PCR) 05/13/21 05/13/21 05/13/21 11:24 14:38 15:45 WBC RBC Hgb Hct Plt Count Lymph % (Auto) Shannon % (Auto) Lymph # (Auto) Seg Neutrophils % D-Dimer POC ABG pO2 ABG Oxyhemoglobin ABG Sodium ABG Glucose Sodium Potassium Chloride Carbon Dioxide Creatinine Glucose 125 H POC Glucose Hemoglobin A1c Lactic Acid 3.10 H* 2.40 H* Ferritin AST Lactate Dehydrogenase 248 H C-Reactive Protein 7.40 H Total Protein Albumin Arterial Blood Glucose Urine pH Coronavirus (PCR) 05/13/21 05/14/21 05/14/21 Unknown 05:45 05:45 WBC 3.3 L RBC Hgb Hct Plt Count 138 L Lymph % (Auto) 7.8 L Shannon % (Auto) Lymph # (Auto) 0.3 L Seg Neutrophils % 86.1 H D-Dimer POC ABG pO2 ABG Oxyhemoglobin ABG Sodium ABG Glucose Sodium Potassium Chloride Carbon Dioxide 21 L Creatinine 0.5 L Glucose 113 H POC Glucose Hemoglobin A1c Lactic Acid Ferritin AST 84 H Lactate Dehydrogenase C-Reactive Protein Total Protein 6.2 L D Albumin Arterial Blood Glucose Urine pH 9.0 H Coronavirus (PCR) 05/14/21 05/14/21 05/14/21 05:45 11:15 Unknown WBC RBC Hgb Hct Plt Count Lymph % (Auto) Shannon % (Auto) Lymph # (Auto) Seg Neutrophils % D-Dimer POC ABG pO2 ABG Oxyhemoglobin ABG Sodium ABG Glucose Sodium Potassium Chloride Carbon Dioxide Creatinine Glucose POC Glucose 141 H Hemoglobin A1c 9.8 H Lactic Acid Ferritin AST Lactate Dehydrogenase C-Reactive Protein Total Protein Albumin Arterial Blood Glucose Urine pH Coronavirus (PCR) Positive A 05/15/21 05/15/21 05/15/21 05:24 07:48 12:10 WBC RBC Hgb Hct Plt Count Lymph % (Auto) Shannon % (Auto) Lymph # (Auto) Seg Neutrophils % D-Dimer POC ABG pO2 ABG Oxyhemoglobin ABG Sodium ABG Glucose Sodium Potassium Chloride Carbon Dioxide Creatinine 0.6 L Glucose 183 H POC Glucose 187 H 251 H Hemoglobin A1c Lactic Acid Ferritin AST Lactate Dehydrogenase C-Reactive Protein Total Protein Albumin Arterial Blood Glucose Urine pH Coronavirus (PCR) 05/15/21 05/15/21 05/15/21 14:10 14:10 14:10 WBC RBC Hgb Hct Plt Count Lymph % (Auto) Shannon % (Auto) Lymph # (Auto) Seg Neutrophils % D-Dimer 271.60 H POC ABG pO2 ABG Oxyhemoglobin ABG Sodium ABG Glucose Sodium Potassium Chloride Carbon Dioxide Creatinine Glucose 327 H POC Glucose Hemoglobin A1c Lactic Acid Ferritin 502.7 H AST Lactate Dehydrogenase 272 H C-Reactive Protein 3.50 H Total Protein Albumin Arterial Blood Glucose Urine pH Coronavirus (PCR) 05/15/21 05/15/21 05/16/21 17:09 21:41 07:28 WBC RBC Hgb Hct Plt Count Lymph % (Auto) Shannon % (Auto) Lymph # (Auto) Seg Neutrophils % D-Dimer POC ABG pO2 ABG Oxyhemoglobin ABG Sodium ABG Glucose Sodium Potassium Chloride Carbon Dioxide Creatinine Glucose POC Glucose 166 H 448 H 264 H Hemoglobin A1c Lactic Acid Ferritin AST Lactate Dehydrogenase C-Reactive Protein Total Protein Albumin Arterial Blood Glucose Urine pH Coronavirus (PCR) 05/16/21 05/16/21 05/16/21 11:56 12:30 16:37 WBC RBC Hgb Hct Plt Count Lymph % (Auto) Shannon % (Auto) Lymph # (Auto) Seg Neutrophils % D-Dimer POC ABG pO2 74.3 L ABG Oxyhemoglobin 93.4 L ABG Sodium 135.8 L ABG Glucose 443 H Sodium Potassium Chloride Carbon Dioxide Creatinine Glucose POC Glucose 405 H 254 H Hemoglobin A1c Lactic Acid Ferritin AST Lactate Dehydrogenase C-Reactive Protein Total Protein Albumin Arterial Blood Glucose 443 H Urine pH Coronavirus (PCR) 05/16/21 05/17/21 05/17/21 21:41 09:12 12:58 WBC RBC Hgb Hct Plt Count Lymph % (Auto) Shannon % (Auto) Lymph # (Auto) Seg Neutrophils % D-Dimer POC ABG pO2 ABG Oxyhemoglobin ABG Sodium ABG Glucose Sodium Potassium Chloride Carbon Dioxide Creatinine Glucose POC Glucose 241 H 226 H 256 H Hemoglobin A1c Lactic Acid Ferritin AST Lactate Dehydrogenase C-Reactive Protein Total Protein Albumin Arterial Blood Glucose Urine pH Coronavirus (PCR) 05/17/21 05/17/21 05/18/21 17:14 21:52 07:45 WBC RBC Hgb Hct Plt Count Lymph % (Auto) Shannon % (Auto) Lymph # (Auto) Seg Neutrophils % D-Dimer POC ABG pO2 ABG Oxyhemoglobin ABG Sodium ABG Glucose Sodium Potassium Chloride Carbon Dioxide Creatinine Glucose POC Glucose 290 H 290 H 224 H Hemoglobin A1c Lactic Acid Ferritin AST Lactate Dehydrogenase C-Reactive Protein Total Protein Albumin Arterial Blood Glucose Urine pH Coronavirus (PCR) 05/18/21 05/18/21 05/18/21 12:08 16:32 17:40 WBC RBC Hgb Hct Plt Count Lymph % (Auto) Shannon % (Auto) Lymph # (Auto) Seg Neutrophils % D-Dimer POC ABG pO2 ABG Oxyhemoglobin ABG Sodium ABG Glucose Sodium Potassium Chloride Carbon Dioxide Creatinine Glucose POC Glucose 469 H 403 H 391 H Hemoglobin A1c Lactic Acid Ferritin AST Lactate Dehydrogenase C-Reactive Protein Total Protein Albumin Arterial Blood Glucose Urine pH Coronavirus (PCR) 05/18/21 05/19/21 05/19/21 21:18 07:44 10:40 WBC RBC Hgb Hct Plt Count Lymph % (Auto) Shannon % (Auto) Lymph # (Auto) Seg Neutrophils % D-Dimer POC ABG pO2 ABG Oxyhemoglobin ABG Sodium ABG Glucose Sodium Potassium Chloride Carbon Dioxide Creatinine Glucose POC Glucose 316 H 238 H 257 H Hemoglobin A1c Lactic Acid Ferritin AST Lactate Dehydrogenase C-Reactive Protein Total Protein Albumin Arterial Blood Glucose Urine pH Coronavirus (PCR) 05/19/21 05/19/21 05/20/21 17:19 21:15 07:37 WBC RBC Hgb Hct Plt Count Lymph % (Auto) Shannon % (Auto) Lymph # (Auto) Seg Neutrophils % D-Dimer POC ABG pO2 ABG Oxyhemoglobin ABG Sodium ABG Glucose Sodium Potassium Chloride Carbon Dioxide Creatinine Glucose POC Glucose 339 H 340 H 324 H Hemoglobin A1c Lactic Acid Ferritin AST Lactate Dehydrogenase C-Reactive Protein Total Protein Albumin Arterial Blood Glucose Urine pH Coronavirus (PCR) 05/20/21 05/20/21 05/20/21 11:19 17:19 20:01 WBC RBC Hgb Hct Plt Count Lymph % (Auto) Shannon % (Auto) Lymph # (Auto) Seg Neutrophils % D-Dimer POC ABG pO2 ABG Oxyhemoglobin ABG Sodium ABG Glucose Sodium 133 L Potassium 3.3 L Chloride 92.8 L Carbon Dioxide 32 H Creatinine 0.6 L Glucose 330 H POC Glucose 256 H 172 H Hemoglobin A1c Lactic Acid Ferritin AST Lactate Dehydrogenase C-Reactive Protein Total Protein Albumin 3.1 L Arterial Blood Glucose Urine pH Coronavirus (PCR) 05/20/21 05/21/21 05/21/21 20:32 07:04 07:56 WBC RBC Hgb Hct Plt Count Lymph % (Auto) Shannon % (Auto) Lymph # (Auto) Seg Neutrophils % D-Dimer POC ABG pO2 ABG Oxyhemoglobin ABG Sodium ABG Glucose Sodium Potassium 3.5 L Chloride Carbon Dioxide 34 H Creatinine 0.5 L Glucose 130 H POC Glucose 380 H 150 H Hemoglobin A1c Lactic Acid Ferritin AST Lactate Dehydrogenase C-Reactive Protein Total Protein Albumin 3.3 L Arterial Blood Glucose Urine pH Coronavirus (PCR) 05/21/21 05/21/21 05/21/21 13:07 13:14 16:30 WBC RBC Hgb Hct Plt Count Lymph % (Auto) Shannon % (Auto) Lymph # (Auto) Seg Neutrophils % D-Dimer POC ABG pO2 ABG Oxyhemoglobin ABG Sodium ABG Glucose Sodium Potassium Chloride Carbon Dioxide Creatinine Glucose 517 H* POC Glucose > 600 H > 600 H Hemoglobin A1c Lactic Acid Ferritin AST Lactate Dehydrogenase C-Reactive Protein Total Protein Albumin Arterial Blood Glucose Urine pH Coronavirus (PCR) 05/21/21 05/21/21 05/22/21 16:33 21:26 07:17 WBC RBC Hgb Hct Plt Count Lymph % (Auto) Shannon % (Auto) Lymph # (Auto) Seg Neutrophils % D-Dimer POC ABG pO2 ABG Oxyhemoglobin ABG Sodium ABG Glucose Sodium Potassium 3.3 L Chloride 95.1 L Carbon Dioxide 33 H Creatinine 0.5 L Glucose 74 L POC Glucose 436 H 403 H Hemoglobin A1c Lactic Acid Ferritin AST Lactate Dehydrogenase C-Reactive Protein Total Protein Albumin 3.7 L Arterial Blood Glucose Urine pH Coronavirus (PCR) 05/22/21 11:34 WBC RBC Hgb Hct Plt Count Lymph % (Auto) Shannon % (Auto) Lymph # (Auto) Seg Neutrophils % D-Dimer POC ABG pO2 ABG Oxyhemoglobin ABG Sodium ABG Glucose Sodium Potassium Chloride Carbon Dioxide Creatinine Glucose POC Glucose 308 H Hemoglobin A1c Lactic Acid Ferritin AST Lactate Dehydrogenase C-Reactive Protein Total Protein Albumin Arterial Blood Glucose Urine pH Coronavirus (PCR) Chest x-ray: report reviewed, image reviewed Additional Studies: CHEST 1 VIEW 05/16/21 INDICATION / CLINICAL INFORMATION: Shortness of breath, Covid 19. COMPARISON: 05/13/2021 FINDINGS: SUPPORT DEVICES: None. HEART / MEDIASTINUM: No significant abnormality. LUNGS / PLEURA: No significant pulmonary or pleural abnormality. No pneumothorax. Previously noted left lower lung linear density has largely resolved. ADDITIONAL FINDINGS: No significant additional findings. IMPRESSION: 1. No acute findings. Allied health notes reviewed: nursing
[2021-05-22] MEDS: SODIUM CHLORIDE 0.9% 50 ML IVPB IV SCH (22:47)
[2021-05-22] MEDS: REMDESIVIR 100 MG in SODIUM CHLORIDE 0.9% 250ML 250 ML IV SCH (22:47)
[2021-05-23 06:55] LABS: Alanine Aminotransferase 39 units/L (7-56); Albumin 2.9 g/dL (3.9-5); BUN/Creatinine Ratio 30; Blood Urea Nitrogen 15 mg/dL (9-20); Calcium 9.2 mg/dL (8.4-10.2); Hemolysis Index 14
[2021-05-23] MEDS: INSULIN LISPRO 100 UNIT/ML SUB-Q SCH ×4 (07:30→22:32)
[2021-05-23] MEDS: INSULIN NPH/REGULAR 70/30 INJ SUB-Q SCH ×2 (08:00→17:00)
[2021-05-23] MEDS: ENOXAPARIN 40 MG/0.4 ML INJ SUB-Q SCH (10:23)
[2021-05-23] MEDS: DEXAMETHASONE 4 MG TAB PO SCH (10:24)
[2021-05-23] MEDS: CHOLECALCIFEROL (VIT D3) 5,000 UNIT TAB PO SCH (10:24)
[2021-05-23] MEDS: POTASSIUM CHLORIDE ER 20 MEQ TAB PO SCH (10:24)
[2021-05-23] MEDS: FAMOTIDINE 20 MG TAB PO SCH ×2 (10:25→21:11)
[2021-05-23] MEDS: ZINC SULFATE 220 MG CAP PO SCH ×2 (10:25→21:11)
[2021-05-23] MEDS: ASCORBIC ACID 500 MG TAB PO SCH ×2 (10:25→21:11)
--- NOTE | 2021-05-23 18:31 | Progress Note ---
Assessment and Plan Assessment and plan: --Positive COVID-19 infection Current Visit: Yes Status: Acute Coronavirus PCR positive, continue IV Decadron Patient was saturating room air initially, however he is requiring supplemental oxygen today Titrate, home O2 evaluation prior to discharge Patient is requiring 2 to 3 L nasal cannula On remdesivir, last dose tomorrow DC home tomorrow stable --Hypoxia; Current Visit: Yes Status: Acute Patient is on 2 L of nasal cannula oxygen ; OT evaluation /pulse oximetry of 93% on 2LPM at rest. pulse oximetry of 89%on room air at rest. pulse oximetry of 70% on room air with activity. pulse oximetry 91% on 2LPM with activity. Initially patient was saturating well on room air However patient is requiring 2 L of nasal cannula oxygen now Started remdesivir yesterday, for total 5 days Home O2 evaluation, set up home oxygen at discharge --Type 2 diabetes mellitus; labile blood sugars Current Visit: Yes Status: Acute Partly due to steroid and partly due to noncompliance with diet, patient had very high blood sugars yesterday 400-600 Long-acting insulin dose increased, this morning blood sugars are in the lower range We will reduce long-acting insulin dose, closely monitor blood sugars A1c is 9.8, diabetic education nutrition education Adjust as needed --Hypokalemia; Current Visit: Yes Status: Acute Replenished with KCl, monitor electrolytes --SIRS (systemic inflammatory response syndrome) Current Visit: Yes Status: Acute Patient has tachycardia elevated lactic acid level and temperature of 99.9 IV fluids for 12 hours --Hemoptysis Current Visit: Yes Status: Acute One episode--resolved -- Polycythemia due to fall in plasma volume Current Visit: Yes Status: Deleted Resolved --COPD exacerbation Current Visit: Yes Status: Acute Duo nebs and IV Decadron --T2DM (type 2 diabetes mellitus) Current Visit: Yes Status: Chronic Insulin adjusted --Mild colitis; on CT abdomen Current Visit: Yes Status: Acute Patient does not have any GI symptoms Tolerating ADA diet Recommend outpatient GI evaluation upon discharge --DVT prophylaxis Current Visit: Yes Status: Acute Subcu Lovenox We will monitor the patient and adjust management as needed Plan of care reviewed with the patient and his nurse 05/20/2021; patient is requiring supplemental oxygen 2 L via NC Continue IV Decadron, start remdesivir ID following, home O2 evaluation and set up prior to discharge 05/21/2021; Hypoxia requiring supplemental oxygen, started remdesivir total 5 days Continue Decadron total 10 days Hypokalemia corrected with KCl 05/22/2021; Patient is hypoxic requiring supplemental oxygen 2 L of nasal cannula Receiving IV dexamethasone and IV remdesivir per protocol Prone position encouraged Labile blood sugars partly due to steroid use and partly due to noncompliance with diet Will adjust insulin dose as needed Diabetic education and nutrition education prior to discharge 05/23/2021 Patient is on 2 L of nasal cannula oxygen last dose of remdesivir tomorrow We will discharge tomorrow if stable History Interval history: I have seen and examined the patient at the bedside Strict isolation precautions PPE protocols strictly followed per COVID-19 guidelines Patient feels slightly better, saturating well on 2 to 3 L of nasal cannula On dexamethasone, and remdesivir Vital signs noted Hospitalist Physical - Constitutional Vitals: Temp Pulse Resp BP Pulse Ox 98.3 F 73 18 151/88 93 05/23/21 05:32 05/23/21 05:32 05/23/21 05:32 05/23/21 05:32 05/23/21 07:38 General appearance: Present: mild distress, cachectic, other (Feels better) - EENT Eyes: Present: PERRL, EOM intact - Neck Neck: Present: supple, normal ROM - Respiratory Respiratory effort: normal Respiratory: bilateral: diminished, rhonchi, negative: rales, wheezing - Cardiovascular Rhythm: regular Heart Sounds: Present: S1 & S2 - Extremities Extremities: no ischemia, No edema - Abdominal General gastrointestinal: soft, non-tender, non-distended, normal bowel sounds - Integumentary Integumentary: Present: clear, warm - Psychiatric Psychiatric: appropriate mood/affect, cooperative - Neurologic Neurologic: CNII-XII intact, moves all extremities HEART Score - HEART Score EKG: Normal Age: > 65 Risk factors: 1-2 risk factors Troponin: Troponin T < 0.010 ng/mL (0.00-0.029) 05/13/21 14:38 Troponin: < normal limit - Critical Actions Critical Actions: 0-3 pts:0.9-1.7%risk of adverse cardiac event.Candidate for discharge Results - Labs CBC & Chem 7: 05/15/21 05:24 05/23/21 06:02 Labs: Laboratory Last Values WBC 5.5 K/mm3 (4.5-11.0) 05/15/21 05:24 RBC 4.96 M/mm3 (3.65-5.03) 05/15/21 05:24 Hgb 14.5 gm/dl (11.8-15.2) 05/15/21 05:24 Hct 43.6 % (35.5-45.6) 05/15/21 05:24 MCV 88 fl (84-94) 05/15/21 05:24 MCH 29 pg (28-32) 05/15/21 05:24 MCHC 33 % (32-34) 05/15/21 05:24 RDW 13.2 % (13.2-15.2) 05/15/21 05:24 Plt Count 144 K/mm3 (140-440) 05/15/21 05:24 Lymph % (Auto) 7.8 % (13.4-35.0) L 05/14/21 05:45 [place] % (Auto) 6.0 % (0.0-7.3) 05/14/21 05:45 Eos % (Auto) 0.0 % (0.0-4.3) 05/14/21 05:45 Baso % (Auto) 0.1 % (0.0-1.8) 05/14/21 05:45 Lymph # (Auto) 0.3 K/mm3 (1.2-5.4) L 05/14/21 05:45 [place] # (Auto) 0.2 K/mm3 (0.0-0.8) 05/14/21 05:45 Eos # (Auto) 0.0 K/mm3 (0.0-0.4) 05/14/21 05:45 Baso # (Auto) 0.0 K/mm3 (0.0-0.1) 05/14/21 05:45 Seg Neutrophils % 86.1 % (40.0-70.0) H 05/14/21 05:45 Seg Neutrophils # 2.8 K/mm3 (1.8-7.7) 05/14/21 05:45 D-Dimer 271.60 ng/mlDDU (0-234) H 05/15/21 14:10 ABG pH 7.390 (7.320-7.450) 05/16/21 12:30 POC ABG pCO2 41.1 mmHg (32.0-48.0) 05/16/21 12:30 POC ABG pO2 74.3 mmHg (83-108) L 05/16/21 12:30 POC ABG HCO3 24.3 05/16/21 12:30 ABG O2 Saturation 94.6 (0-100) 05/16/21 12:30 POC ABG Base Excess -0.6 05/16/21 12:30 ABG Hemoglobin 15.5 (12.0-17.5) 05/16/21 12:30 ABG Oxyhemoglobin 93.4 (94-98) L 05/16/21 12:30 ABG Methemoglobin 0.3 (0.0-1.5) 05/16/21 12:30 ABG Sodium 135.8 mmol/L (136.0-145.0) L 05/16/21 12:30 ABG Potassium 4.0 mmol/L (3.40-4.50) 05/16/21 12:30 ABG Chloride 100.0 mmol/L (98-107) 05/16/21 12:30 ABG Glucose 443 mg/dL (65-95) H 05/16/21 12:30 Carboxyhemoglobin 1.0 (0.5-1.5) 05/16/21 12:30 FiO2 % 28.0 05/16/21 12:30 Sodium 139 mmol/L (137-145) 05/23/21 06:02 Potassium 3.4 mmol/L (3.6-5.0) L 05/23/21 06:02 Chloride 98.1 mmol/L (98-107) 05/23/21 06:02 Carbon Dioxide 34 mmol/L (22-30) H 05/23/21 06:02 Anion Gap 10 mmol/L 05/23/21 06:02 BUN 15 mg/dL (9-20) 05/23/21 06:02 Creatinine 0.5 mg/dL (0.8-1.3) L 05/23/21 06:02 Estimated GFR > 60 ml/min 05/23/21 06:02 BUN/Creatinine Ratio 30 % 05/23/21 06:02 Glucose 81 mg/dL (75-100) 05/23/21 06:02 POC Glucose 209 mg/dL (70-105) H 05/23/21 16:20 Hemoglobin A1c 9.8 % (4-6) H 05/14/21 05:45 Lactic Acid 2.40 mmol/L (0.7-2.0) H* 05/13/21 15:45 Calcium 9.2 mg/dL (8.4-10.2) 05/23/21 06:02 Magnesium 1.70 mg/dL (1.7-2.3) 05/23/21 06:02 Ferritin 502.7 ng/mL (30.0-300.0) H 05/15/21 14:10 Total Bilirubin 0.50 mg/dL (0.1-1.2) 05/23/21 06:02 AST 26 units/L (5-40) 05/23/21 06:02 ALT 39 units/L (7-56) 05/23/21 06:02 Alkaline Phosphatase 63 units/L (35-129) 05/23/21 06:02 Lactate Dehydrogenase 272 units/L (91-180) H 05/15/21 14:10 Troponin T < 0.010 ng/mL (0.00-0.029) 05/13/21 14:38 C-Reactive Protein 3.50 mg/dL (0.00-1.30) H 05/15/21 14:10 Total Protein 6.2 g/dL (6.3-8.2) L 05/23/21 06:02 Albumin 2.9 g/dL (3.9-5) L 05/23/21 06:02 Albumin/Globulin Ratio 0.9 % 05/23/21 06:02 Procalcitonin 0.08 ng/mL (<0.15) 05/15/21 14:10 Arterial Blood Glucose 443 mg/dL (65-95) H 05/16/21 12:30 Arterial Blood Ionized Calcium 4.7 mg/dL (4.6-5.3) 05/16/21 12:30 Urine Color Yellow (Yellow) 05/13/21 Unknown Urine Turbidity Clear (Clear) 05/13/21 Unknown Urine pH 9.0 (5.0-7.0) H 05/13/21 Unknown Ur Specific [place] 1.012 (1.003-1.030) 05/13/21 Unknown Urine Protein <15 mg/dl mg/dL (Negative) 05/13/21 Unknown Urine Glucose (UA) Neg mg/dL (Negative) 05/13/21 Unknown Urine Ketones Neg mg/dL (Negative) 05/13/21 Unknown Urine Blood Neg (Negative) 05/13/21 Unknown Urine Nitrite Neg (Negative) 05/13/21 Unknown Urine Bilirubin Neg (Negative) 05/13/21 Unknown Urine Urobilinogen < 2.0 mg/dL (<2.0) 05/13/21 Unknown Ur Leukocyte Esterase Neg (Negative) 05/13/21 Unknown Urine WBC (Auto) 1.0 /HPF (0.0-6.0) 05/13/21 Unknown Urine RBC (Auto) < 1.0 /HPF (0.0-6.0) 05/13/21 Unknown Urine Bacteria (Auto) 1+ /HPF (Negative) 05/13/21 Unknown Coronavirus (PCR) Positive (Negative) A 05/14/21 Unknown Quan/IV: Voiding Method Urinal Active Medications - Current Medications Current Medications: Generic Name Dose Route Start Last Admin Trade Name Freq PRN Reason Stop Dose Admin Acetaminophen 650 mg 05/13/21 23:07 Acetaminophen 325 Mg Tab PO Q4H PRN Pain MILD(1-3)/Fever >100.5/MARTINEZ Albuterol 2.5 mg 05/14/21 10:58 Albuterol 2.5 Mg/3 Ml Nebu IH Q4H PRN Wheezing Ascorbic Acid 1,000 mg 05/13/21 23:45 05/23/21 10:25 Ascorbic Acid 500 Mg Tab PO 1,000 mg BID SARIAH Administration Cholecalciferol 5,000 unit 05/14/21 10:00 05/23/21 10:24 Cholecalciferol (Vit D3) 5,000 Unit Tab PO 5,000 unit DAILY SARIAH Administration Dextrose 50 ml 05/15/21 10:22 Dextrose 50% In Water (25gm) 50 Ml Syringe IV Q30MIN PRN Hypoglycemia Protocol Enoxaparin Sodium 40 mg 05/14/21 10:00 05/23/21 10:23 Enoxaparin 40 Mg/0.4 Ml Inj SUB-Q 40 mg QDAY SARIAH Administration Famotidine 20 mg 05/14/21 10:00 05/23/21 10:25 Famotidine 20 Mg Tab PO 20 mg BID SARIAH Administration Hydromorphone HCl 0.5 mg 05/13/21 23:07 Hydromorphone 1 Mg/1 Ml Inj IV Q3H PRN Pain , Severe (7-10) REMDESIVIR 100 mg/ Sodium 250 mls @ 500 mls/hr 05/21/21 21:00 05/22/21 22:47 Chloride IV 05/24/21 21:29 500 mls/hr Q24HR@2100 SARIAH Administration Insulin Human Isoph/Insulin Regular 15 unit 05/22/21 10:15 05/23/21 08:00 Insulin Nph/Regular 70/30 Inj SUB-Q 15 unit BIDDIAB SARIAH Administration Insulin Human Lispro 0 unit 05/21/21 16:30 05/23/21 11:30 Insulin Lispro 100 Unit/Ml SUB-Q 6 unit ACHS SARIAH Administration Protocol Metoclopramide HCl 10 mg 05/13/21 23:07 Metoclopramide 10 Mg/2 Ml Inj IV Q6H PRN Nausea And Vomiting Ondansetron HCl 4 mg 05/13/21 23:07 Ondansetron 4 Mg/2 Ml Inj IV Q8H PRN Nausea And Vomiting Oxycodone/Acetaminophen 1 tab 05/13/21 23:07 Oxycodone /Acetaminophen 5-325mg Tab PO Q6H PRN Pain, Moderate (4-6) Potassium Chloride 20 meq 05/23/21 10:00 05/23/21 10:24 Potassium Chloride Er 20 Meq Tab PO 20 meq QDAY SARIAH Administration Sodium Chloride 10 ml 05/14/21 10:00 05/23/21 10:26 Sodium Chloride 0.9% 10 Ml Flush Syringe IV 10 ml BID SARIAH Administration Sodium Chloride 10 ml 05/13/21 23:07 Sodium Chloride 0.9% 10 Ml Flush Syringe IV PRN PRN LINE FLUSH Sodium Chloride 50 ml 05/20/21 21:00 05/22/21 22:47 Sodium Chloride 0.9% 50 Ml Ivpb IV 05/24/21 21:01 50 ml Q24HR@2100 SARIAH Administration Zinc Sulfate 220 mg 05/13/21 23:45 05/23/21 10:25 Zinc Sulfate 220 Mg Cap PO 220 mg BID SARIAH Administration Nutrition/Malnutrition Assess - Dietary Evaluation Nutrition/Malnutrition Findings: Nutrition Notes Start: 05/15/21 09:56 Freq: Status: Active Protocol: Document 05/19/21 11:58 ZEESHAN (Rec: 05/19/21 12:03 [email or web address]) Nutrition Notes Initial or Follow up Reassessment Current Diagnosis COPD,Diabetes Other Pertinent Diagnosis colitis, hx colon cancer, pneu , COVID(+) Current Diet Consistent CHO Labs/Tests POC Glu range: 224-469 Pertinent Medications Decadron Height 5 ft 8 in Weight 69.7 kg [place] Body Weight (kg) 70.00 BMI 23.3 Weight Status Appropriate Subjective/Other Information Pt reports eating well. Pt seems slightly confused. Per chart, pt eating 100% of meals . Pt asked for ONS. Percent of energy/protein needs met: 100%/100% Burn Absent Trauma Absent GI Symptoms Other Current % PO Good (75-100%) Minimum of two criteria No physical signs of malnutrition #1 Nutrition Diagnosis Inadequate energy intake As Evidenced by Signs and Symptoms pt meeting 100% of needs Diagnosis Progress(for reassessment Improved documentation) Is patient on ventilator? No Is Patient Ambulatory and/or Out of Bed Yes REE-(Candler-St. Jeor-ambulatory/OOB) [ 1821.950 [id number]] Calculation Used for Recommendations Candler-St Jeor Additional Notes Protein: (1-1.2 g/kg) 68-82g Fluid: 1 ml/kcal or per Nutrition Intervention Change Diet Order: continue Add Supplement/Snack (indicate name/kcal Glucerna daily /protein ) Provides kCal: 220 Provides Protein (gm) 10 Goal #1 Meet at least 75% of energy and protein needs via PO and ONS Anticipated Discharge Needs: consistent CHO Follow-Up By: 05/24/21 Additional Comments F/u: stable intakes
[2021-05-23] MEDS: REMDESIVIR 100 MG in SODIUM CHLORIDE 0.9% 250ML 250 ML IV SCH (21:10)
[2021-05-23] MEDS: SODIUM CHLORIDE 0.9% 50 ML IVPB IV SCH (21:12)
--- NOTE | 2021-05-23 22:35 | Progress Note ---
Assessment and Plan 76-year-old male with history of diabetes, COPD, right eye blindness and s/p colon cancer resection 1 year ago, chronic back pain comes where EMS for cough and fever of 2 to 3 days. Patient also has generalized weakness. Patient had one episode of coughing up blood this morning but is not sure. It was only one episode and was not followed by any wheezing syncope etc. Patient has been using inhalers without significant relief. No hematemesis or melena. No weight loss. Patient is unvaccinated. In the emergency room patient dialysis low-grade fever of 99.9. And patient is also tachycardic with heart rate of 114/min. Patients brantley virus PCR is Positive. Patient sleeping on 2 litre O2. O2 saturation 95%. No acute respiratory distr ess. Patient afebrile. BP 136/85, HR 75, RR 18. No leukocytosis. Patients Angio CT of chest (05/13/21) reported No CT evidence for pulmonary embolism. No evidence for thoracic aortic dissection. Linear parenchymal disease is present within the lingula. It is unclear if this is acute or chronic. Favor that this is atelectasis or chronic scarring. Unfortunately, there are no prior imaging studies for comparison. Mild emphysematous change. CXR from 05/16/21 showed no significant changes from 05/13/21. Patient is on Albuterol, Lovenox, Zinc, Potassium PO, and famotidine. Finished course of Remdesivir, zithromax, ceftriaxone and dexamethasone - Patient Problems (1) Coronavirus infection Current Visit: Yes Status: Acute Plan to address problem: Management as infectious diseases. (2) COPD exacerbation Current Visit: Yes Status: Acute Plan to address problem: On 2 litre O2. Continue dexamethasone Albuterol inhaler S/C Lovenox Famotidine. Reglan. (3) Gastroenteritis due to COVID-19 virus Current Visit: Yes Status: Acute Plan to address problem: Managment as per primary care and Gastroenterology. (4) Hemoptysis Current Visit: Yes Status: Acute Plan to address problem: No hemoptysis at this time. (5) Hypoxia Current Visit: Yes Status: Acute Plan to address problem: On 2 litres O2. O2 saturation 96%. (6) Pneumonia due to COVID-19 virus Current Visit: Yes Status: Acute Plan to address problem: Patient finished course of Zithromax and ceftriaxone. (7) SIRS (systemic inflammatory response syndrome) Current Visit: Yes Status: Acute Plan to address problem: Improving. Patient afebrile No leukocytosis. 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 Subjective Date of service: 05/23/21 Principal diagnosis: Hemoptysis; COVID-19 Infxn; Pneumonia; COPD; SIRS; DM II Interval history: 76-year-old male with history of diabetes, COPD, right eye blindness and s/p colon cancer resection 1 year ago, chronic back pain comes where EMS for cough and fever of 2 to 3 days. Patient also has generalized weakness. Patient had one episode of coughing up blood this morning but is not sure. It was only one e pisode and was not followed by any wheezing syncope etc. Patient has been using inhalers without significant relief. No hematemesis or melena. No weight loss. Patient is unvaccinated. In the emergency room patient dialysis low-grade fever of 99.9. And patient is also tachycardic with heart rate of 114/min. Patients brantley virus PCR is Positive. Patient sleeping on 2 litre O2. O2 saturation 95%. No acute respiratory distress. Patient afebrile. BP 136/85, HR 75, RR 18. No leukocytosis. Patients Angio CT of chest (05/13/21) reported No CT evidence for pulmonary embolism. No evidence for thoracic aortic dissection. Linear parenchymal disease is present within the lingula. It is unclear if this is acute or chronic. Favor that this is atelectasis or chronic scarring. Unfortunately, there are no prior imaging studies for comparison. Mild emphysematous change. CXR from 05/16/21 showed no significant changes from 05/13/21. Patient is on Albuterol, Lovenox, Zinc, Potassium PO, and famotidine. Finished course of Remdesivir, zithromax, ceftriaxone and dexamethasone Objective Constitutional: no acute distress, asleep, other (elderly thin male with milldy increased respiratory effort at rest) Eyes: non-icteric ENT: oropharynx dry, other (POOR ORAL DENTITION) Neck: supple, no lymphadenopathy Effort: mildly labored Ascultation: Bilateral: diminished breath sounds, other (prolonged expiratory phase) Percussion: Bilateral: not dull Cardiovascular: regular rate and rhythm, other (s1,s2) Gastrointestinal: normoactive bowel sounds, soft, non-tender, non-distended Integumentary: normal Extremities: no cyanosis, no edema, pulses normal, other (DIGITAL CLUBBING) Neurologic: normal mental status, non-focal exam, pupils equal and round, motor strength normal and Psychiatric: mood appropriate, anxious CBC and BMP: 05/15/21 05:24 05/23/21 06:02 ABG, PT/INR, D-dimer: ABG ABG pH 7.390 (7.320-7.450) 05/16/21 12:30 POC ABG pCO2 41.1 mmHg (32.0-48.0) 05/16/21 12:30 POC ABG pO2 74.3 mmHg (83-108) L 05/16/21 12:30 POC ABG HCO3 24.3 05/16/21 12:30 ABG O2 Saturation 94.6 (0-100) 05/16/21 12:30 PT/INR, D-dimer D-Dimer 271.60 ng/mlDDU (0-234) H 05/15/21 14:10 Abnormal lab findings: Abnormal Labs 05/13/21 05/13/21 05/13/21 11:24 11:24 11:24 WBC 4.1 L RBC 5.30 H Hgb 15.4 H Hct 46.6 H Plt Count Lymph % (Auto) 8.1 L Casey % (Auto) 10.4 H Lymph # (Auto) 0.3 L Seg Neutrophils % 81.0 H D-Dimer 314.43 H POC ABG pO2 ABG Oxyhemoglobin ABG Sodium ABG Glucose Sodium Potassium Chloride Carbon Dioxide Creatinine Glucose 121 H POC Glucose Hemoglobin A1c Lactic Acid Ferritin AST 54 H Lactate Dehydrogenase C-Reactive Protein Total Protein Albumin Arterial Blood Glucose Urine pH Coronavirus (PCR) 05/13/21 05/13/21 05/13/21 11:24 14:38 15:45 WBC RBC Hgb Hct Plt Count Lymph % (Auto) Casey % (Auto) Lymph # (Auto) Seg Neutrophils % D-Dimer POC ABG pO2 ABG Oxyhemoglobin ABG Sodium ABG Glucose Sodium Potassium Chloride Carbon Dioxide Creatinine Glucose 125 H POC Glucose Hemoglobin A1c Lactic Acid 3.10 H* 2.40 H* Ferritin AST Lactate Dehydrogenase 248 H C-Reactive Protein 7.40 H Total Protein Albumin Arterial Blood Glucose Urine pH Coronavirus (PCR) 05/13/21 05/14/21 05/14/21 Unknown 05:45 05:45 WBC 3.3 L RBC Hgb Hct Plt Count 138 L Lymph % (Auto) 7.8 L Casey % (Auto) Lymph # (Auto) 0.3 L Seg Neutrophils % 86.1 H D-Dimer POC ABG pO2 ABG Oxyhemoglobin ABG Sodium ABG Glucose Sodium Potassium Chloride Carbon Dioxide 21 L Creatinine 0.5 L Glucose 113 H POC Glucose Hemoglobin A1c Lactic Acid Ferritin AST 84 H Lactate Dehydrogenase C-Reactive Protein Total Protein 6.2 L D Albumin Arterial Blood Glucose Urine pH 9.0 H Coronavirus (PCR) 05/14/21 05/14/21 05/14/21 05:45 11:15 Unknown WBC RBC Hgb Hct Plt Count Lymph % (Auto) Casey % (Auto) Lymph # (Auto) Seg Neutrophils % D-Dimer POC ABG pO2 ABG Oxyhemoglobin ABG Sodium ABG Glucose Sodium Potassium Chloride Carbon Dioxide Creatinine Glucose POC Glucose 141 H Hemoglobin A1c 9.8 H Lactic Acid Ferritin AST Lactate Dehydrogenase C-Reactive Protein Total Protein Albumin Arterial Blood Glucose Urine pH Coronavirus (PCR) Positive A 05/15/21 05/15/21 05/15/21 05:24 07:48 12:10 WBC RBC Hgb Hct Plt Count Lymph % (Auto) Casey % (Auto) Lymph # (Auto) Seg Neutrophils % D-Dimer POC ABG pO2 ABG Oxyhemoglobin ABG Sodium ABG Glucose Sodium Potassium Chloride Carbon Dioxide Creatinine 0.6 L Glucose 183 H POC Glucose 187 H 251 H Hemoglobin A1c Lactic Acid Ferritin AST Lactate Dehydrogenase C-Reactive Protein Total Protein Albumin Arterial Blood Glucose Urine pH Coronavirus (PCR) 05/15/21 05/15/21 05/15/21 14:10 14:10 14:10 WBC RBC Hgb Hct Plt Count Lymph % (Auto) Casey % (Auto) Lymph # (Auto) Seg Neutrophils % D-Dimer 271.60 H POC ABG pO2 ABG Oxyhemoglobin ABG Sodium ABG Glucose Sodium Potassium Chloride Carbon Dioxide Creatinine Glucose 327 H POC Glucose Hemoglobin A1c Lactic Acid Ferritin 502.7 H AST Lactate Dehydrogenase 272 H C-Reactive Protein 3.50 H Total Protein Albumin Arterial Blood Glucose Urine pH Coronavirus (PCR) 05/15/21 05/15/21 05/16/21 17:09 21:41 07:28 WBC RBC Hgb Hct Plt Count Lymph % (Auto) Casey % (Auto) Lymph # (Auto) Seg Neutrophils % D-Dimer POC ABG pO2 ABG Oxyhemoglobin ABG Sodium ABG Glucose Sodium Potassium Chloride Carbon Dioxide Creatinine Glucose POC Glucose 166 H 448 H 264 H Hemoglobin A1c Lactic Acid Ferritin AST Lactate Dehydrogenase C-Reactive Protein Total Protein Albumin Arterial Blood Glucose Urine pH Coronavirus (PCR) 05/16/21 05/16/21 05/16/21 11:56 12:30 16:37 WBC RBC Hgb Hct Plt Count Lymph % (Auto) Casey % (Auto) Lymph # (Auto) Seg Neutrophils % D-Dimer POC ABG pO2 74.3 L ABG Oxyhemoglobin 93.4 L ABG Sodium 135.8 L ABG Glucose 443 H Sodium Potassium Chloride Carbon Dioxide Creatinine Glucose POC Glucose 405 H 254 H Hemoglobin A1c Lactic Acid Ferritin AST Lactate Dehydrogenase C-Reactive Protein Total Protein Albumin Arterial Blood Glucose 443 H Urine pH Coronavirus (PCR) 05/16/21 05/17/21 05/17/21 21:41 09:12 12:58 WBC RBC Hgb Hct Plt Count Lymph % (Auto) Casey % (Auto) Lymph # (Auto) Seg Neutrophils % D-Dimer POC ABG pO2 ABG Oxyhemoglobin ABG Sodium ABG Glucose Sodium Potassium Chloride Carbon Dioxide Creatinine Glucose POC Glucose 241 H 226 H 256 H Hemoglobin A1c Lactic Acid Ferritin AST Lactate Dehydrogenase C-Reactive Protein Total Protein Albumin Arterial Blood Glucose Urine pH Coronavirus (PCR) 05/17/21 05/17/21 05/18/21 17:14 21:52 07:45 WBC RBC Hgb Hct Plt Count Lymph % (Auto) Casey % (Auto) Lymph # (Auto) Seg Neutrophils % D-Dimer POC ABG pO2 ABG Oxyhemoglobin ABG Sodium ABG Glucose Sodium Potassium Chloride Carbon Dioxide Creatinine Glucose POC Glucose 290 H 290 H 224 H Hemoglobin A1c Lactic Acid Ferritin AST Lactate Dehydrogenase C-Reactive Protein Total Protein Albumin Arterial Blood Glucose Urine pH Coronavirus (PCR) 05/18/21 05/18/21 05/18/21 12:08 16:32 17:40 WBC RBC Hgb Hct Plt Count Lymph % (Auto) Casey % (Auto) Lymph # (Auto) Seg Neutrophils % D-Dimer POC ABG pO2 ABG Oxyhemoglobin ABG Sodium ABG Glucose Sodium Potassium Chloride Carbon Dioxide Creatinine Glucose POC Glucose 469 H 403 H 391 H Hemoglobin A1c Lactic Acid Ferritin AST Lactate Dehydrogenase C-Reactive Protein Total Protein Albumin Arterial Blood Glucose Urine pH Coronavirus (PCR) 05/18/21 05/19/21 05/19/21 21:18 07:44 10:40 WBC RBC Hgb Hct Plt Count Lymph % (Auto) Casey % (Auto) Lymph # (Auto) Seg Neutrophils % D-Dimer POC ABG pO2 ABG Oxyhemoglobin ABG Sodium ABG Glucose Sodium Potassium Chloride Carbon Dioxide Creatinine Glucose POC Glucose 316 H 238 H 257 H Hemoglobin A1c Lactic Acid Ferritin AST Lactate Dehydrogenase C-Reactive Protein Total Protein Albumin Arterial Blood Glucose Urine pH Coronavirus (PCR) 05/19/21 05/19/21 05/20/21 17:19 21:15 07:37 WBC RBC Hgb Hct Plt Count Lymph % (Auto) Casey % (Auto) Lymph # (Auto) Seg Neutrophils % D-Dimer POC ABG pO2 ABG Oxyhemoglobin ABG Sodium ABG Glucose Sodium Potassium Chloride Carbon Dioxide Creatinine Glucose POC Glucose 339 H 340 H 324 H Hemoglobin A1c Lactic Acid Ferritin AST Lactate Dehydrogenase C-Reactive Protein Total Protein Albumin Arterial Blood Glucose Urine pH Coronavirus (PCR) 05/20/21 05/20/21 05/20/21 11:19 17:19 20:01 WBC RBC Hgb Hct Plt Count Lymph % (Auto) Casey % (Auto) Lymph # (Auto) Seg Neutrophils % D-Dimer POC ABG pO2 ABG Oxyhemoglobin ABG Sodium ABG Glucose Sodium 133 L Potassium 3.3 L Chloride 92.8 L Carbon Dioxide 32 H Creatinine 0.6 L Glucose 330 H POC Glucose 256 H 172 H Hemoglobin A1c Lactic Acid Ferritin AST Lactate Dehydrogenase C-Reactive Protein Total Protein Albumin 3.1 L Arterial Blood Glucose Urine pH Coronavirus (PCR) 05/20/21 05/21/21 05/21/21 20:32 07:04 07:56 WBC RBC Hgb Hct Plt Count Lymph % (Auto) Casey % (Auto) Lymph # (Auto) Seg Neutrophils % D-Dimer POC ABG pO2 ABG Oxyhemoglobin ABG Sodium ABG Glucose Sodium Potassium 3.5 L Chloride Carbon Dioxide 34 H Creatinine 0.5 L Glucose 130 H POC Glucose 380 H 150 H Hemoglobin A1c Lactic Acid Ferritin AST Lactate Dehydrogenase C-Reactive Protein Total Protein Albumin 3.3 L Arterial Blood Glucose Urine pH Coronavirus (PCR) 05/21/21 05/21/21 05/21/21 13:07 13:14 16:30 WBC RBC Hgb Hct Plt Count Lymph % (Auto) Casey % (Auto) Lymph # (Auto) Seg Neutrophils % D-Dimer POC ABG pO2 ABG Oxyhemoglobin ABG Sodium ABG Glucose Sodium Potassium Chloride Carbon Dioxide Creatinine Glucose 517 H* POC Glucose > 600 H > 600 H Hemoglobin A1c Lactic Acid Ferritin AST Lactate Dehydrogenase C-Reactive Protein Total Protein Albumin Arterial Blood Glucose Urine pH Coronavirus (PCR) 05/21/21 05/21/21 05/22/21 16:33 21:26 07:17 WBC RBC Hgb Hct Plt Count Lymph % (Auto) Casey % (Auto) Lymph # (Auto) Seg Neutrophils % D-Dimer POC ABG pO2 ABG Oxyhemoglobin ABG Sodium ABG Glucose Sodium Potassium 3.3 L Chloride 95.1 L Carbon Dioxide 33 H Creatinine 0.5 L Glucose 74 L POC Glucose 436 H 403 H Hemoglobin A1c Lactic Acid Ferritin AST Lactate Dehydrogenase C-Reactive Protein Total Protein Albumin 3.7 L Arterial Blood Glucose Urine pH Coronavirus (PCR) 05/22/21 05/22/21 05/22/21 11:34 17:19 21:19 WBC RBC Hgb Hct Plt Count Lymph % (Auto) Casey % (Auto) Lymph # (Auto) Seg Neutrophils % D-Dimer POC ABG pO2 ABG Oxyhemoglobin ABG Sodium ABG Glucose Sodium Potassium Chloride Carbon Dioxide Creatinine Glucose POC Glucose 308 H 287 H 222 H Hemoglobin A1c Lactic Acid Ferritin AST Lactate Dehydrogenase C-Reactive Protein Total Protein Albumin Arterial Blood Glucose Urine pH Coronavirus (PCR) 05/23/21 05/23/21 05/23/21 06:02 12:51 16:20 WBC RBC Hgb Hct Plt Count Lymph % (Auto) Casey % (Auto) Lymph # (Auto) Seg Neutrophils % D-Dimer POC ABG pO2 ABG Oxyhemoglobin ABG Sodium ABG Glucose Sodium Potassium 3.4 L Chloride Carbon Dioxide 34 H Creatinine 0.5 L Glucose POC Glucose 251 H 209 H Hemoglobin A1c Lactic Acid Ferritin AST Lactate Dehydrogenase C-Reactive Protein Total Protein 6.2 L Albumin 2.9 L Arterial Blood Glucose Urine pH Coronavirus (PCR) 05/23/21 21:46 WBC RBC Hgb Hct Plt Count Lymph % (Auto) Casey % (Auto) Lymph # (Auto) Seg Neutrophils % D-Dimer POC ABG pO2 ABG Oxyhemoglobin ABG Sodium ABG Glucose Sodium Potassium Chloride Carbon Dioxide Creatinine Glucose POC Glucose 419 H Hemoglobin A1c Lactic Acid Ferritin AST Lactate Dehydrogenase C-Reactive Protein Total Protein Albumin Arterial Blood Glucose Urine pH Coronavirus (PCR) Allied health notes reviewed: nursing
[2021-05-24] MEDS: INSULIN LISPRO 100 UNIT/ML SUB-Q SCH ×3 (08:49→17:33)
[2021-05-24] MEDS: INSULIN NPH/REGULAR 70/30 INJ SUB-Q SCH ×2 (08:55→17:35)
--- NOTE | 2021-05-24 09:29 | Discharge Summary ---
Providers - Providers Date of Admission: 05/13/21 22:02 Date of discharge: 05/24/21 Attending physician: VIET ROCHE 05/13/21 23:38 Consult to Physician [CONS] Routine Comment: Consulting Provider: TANIA MONAHAN Physician Instructions: Reason For Exam: Hemoptysis 05/14/21 12:32 Consult to Physician [CONS] Routine Comment: Consulting Provider: LAURA HENSON Physician Instructions: Reason For Exam: colitis 05/14/21 16:17 Consult to Physician [CONS] Routine Comment: Consulting Provider: DMITRI SAUNDERS Physician Instructions: Reason For Exam: Covid-19 positive 05/15/21 15:39 Occupational Therapy Evaluate and Treat [CONS] Stat Comment: Reason For Exam: eval and treat Physical Therapy Evaluation and Treat [CONS] Stat Comment: Reason For Exam: eval and treat Primary care physician: GROCERY CASHIER Hospitalization Condition: Fair Disposition: [id number] HOME UNDER HOME [facility] Core Measure Documentation - Palliative Care Palliative Care/ Comfort Measures: Not Applicable - Core Measures Any of the following diagnoses?: none Exam - Constitutional Vitals: Temp Pulse Resp BP Pulse Ox 97.5 F L 75 18 136/85 95 05/23/21 21:44 05/23/21 21:44 05/23/21 21:44 05/23/21 21:44 05/23/21 22:00 Plan Activity: advance as tolerated, other (Fall precautions) Additional Instructions: Patient will go home with 2 L of nasal cannula oxygen[due to COVID-19 with intermittent hypoxia] advised to use home oxygen as needed. You have worsening symptoms contact MD or go to emergency room. Strictly follow COVID-19 isolation precautions and protocols explained to you by discharge nurse. If you have worsening symptoms contact MD or go to emergency room as needed Follow up with: PRIMARY CARE,MD [Primary Care Provider] - 3-5 Days Prescriptions: Lispro Insulin [HumaLOG] 1 unit SUB-Q ACHS #1 vial Insulin NPH/Regular [NovoLIN 70/30] 15 unit SUB-Q BIDDIAB #2 vial Famotidine [Pepcid] 20 mg PO BID #30 tablet oxyCODONE /ACETAMINOPHEN [Percocet 5/325 mg] 1 tab PO BID PRN #10 tablet PRN Reason: Pain, Moderate (4-6) Ascorbic Acid [Vitamin C] 1,000 mg PO BID #30 tablet Cholecalciferol (Vitamin D3) [Vitamin D3] 5,000 unit PO DAILY #30 tablet Zinc Sulfate 220 mg PO BID #30 capsule Other Discharge Orders: Glucometer (Amb) Location: None Selected Glucometer supplies[Amb] Location: None Selected
[2021-05-24] MEDS: POTASSIUM CHLORIDE ER 20 MEQ TAB PO SCH (11:06)
[2021-05-24] MEDS: ENOXAPARIN 40 MG/0.4 ML INJ SUB-Q SCH (11:06)
[2021-05-24] MEDS: ZINC SULFATE 220 MG CAP PO SCH (11:06)
[2021-05-24] MEDS: FAMOTIDINE 20 MG TAB PO SCH (11:06)
[2021-05-24] MEDS: CHOLECALCIFEROL (VIT D3) 5,000 UNIT TAB PO SCH (11:07)
[2021-05-24] MEDS: ASCORBIC ACID 500 MG TAB PO SCH (11:07)
[2021-05-24] MEDS ORDERED: REMDESIVIR 100 MG in SODIUM CHLORIDE 0.9% 250ML 250 ML IV ONE (13:30)
[2021-05-24] MEDS ORDERED: SODIUM CHLORIDE 0.9% 50 ML IVPB IV ONE (14:00)
[2021-05-24 19:00] VITALS: BP 159/104
== END 2021-05-24 19:30 | disposition home health service (06) | DRG 177 ==
LOC: ED 09:57 → 3A 22:02
PROVIDERS: ADMIT Internal Medicine; ATTEND Internal Medicine
PROC: 4A033R1 Measurement of Arterial Saturation, Peripheral, Percutaneous Approach (ICD-10-PCS; principal; 2021-05-16)
PROC: XW033E5 Introduction of Remdesivir Anti-infective into Peripheral Vein, Percutaneous Approach, New Technology Group 5 (ICD-10-PCS; 2021-05-24)
DX: U07.1 COVID-19 (principal); J12.82 Pneumonia due to coronavirus disease 2019; A08.39 Other viral enteritis; J44.1 Chronic obstructive pulmonary disease with (acute) exacerbation; R04.2 Hemoptysis; R65.10 Systemic inflammatory response syndrome (SIRS) of non-infectious origin without acute organ dysfunction; D72.819 Decreased white blood cell count, unspecified; H54.7 Unspecified visual loss; J44.9 Chronic obstructive pulmonary disease, unspecified; B34.9 Viral infection, unspecified; D75.1 Secondary polycythemia; K52.9 Noninfective gastroenteritis and colitis, unspecified; Z79.4 Long term (current) use of insulin; Z85.038 Personal history of other malignant neoplasm of large intestine; Z87.891 Personal history of nicotine dependence; Z82.49 Family history of ischemic heart disease and other diseases of the circulatory system; Z90.49 Acquired absence of other specified parts of digestive tract; E11.649 Type 2 diabetes mellitus with hypoglycemia without coma
CPT/HCPCS: 36415; 36600; 71045; 71275; 74177; 80048; 80053; 81001; 82140; 82728; 82805; 82947; 82962; 83036; 83615; 83735; 84145; 84484; 85025; 85027; 85379; 86140; 87040; 87086; 93005; 94640; 94644; G0378; J0456; J0696; J1100; J1650; J1815; J2543; J2930; J3370; J7030; J7040; J7050; J8540; Q9967; U0003